=== PATIENT | male | born 1945 | race Caucasian/White ===

== ENCOUNTER → 2019-01-24 16:37 | Outpatient (CLI) | payer MEDICARE, SELFPAY ==
[2015-11-06 16:55] VITALS: BMI 31.8
== END ==
PROVIDERS: Family Provider Family Medicine; PCP Family Medicine; Referring Provider Nurse Practitioner Adult Health; Visit Provider Nurse Practitioner Adult Health
DX: N39.0 Urinary tract infection, site not specified (principal); R31.9 Hematuria, unspecified
CPT/HCPCS: 87077; 87086; 87088; 87186

== ENCOUNTER → 2019-02-02 06:56 | Outpatient (CLI) | payer MEDICARE, SELFPAY ==
--- NOTE | 2019-02-02 07:47 | CT_ITS ---
STUDY: CT ABDOMEN AND PELVIS WITHOUT CONTRAST REASON FOR EXAM: Male, 73 years old. Hematuria. Flank pain. History of bladder cancer. History of prostate removal and colectomy. RADIATION DOSAGE (If Supplied By Facility): CTDIvol = ( 8.77 ) mGy, DLP = ( 458.07 ) mGycm TECHNIQUE: Transaxial images were obtained from the dome of the diaphragm to the symphysis pubis without oral contrast, and without intravenous contrast. Sagittal and coronal images were reconstructed. Individualized dose optimization techniques were used for this CT. COMPARISON: November 04, 2015. FINDINGS: The visualized lung bases are unremarkable. The visualized portions of the heart are within normal limits. Normal liver. There is questionable sludge or small stones in the gallbladder. Liver appears unremarkable. Normal spleen. Normal pancreas. Normal bilateral adrenal glands. There is prominent right hydronephrosis and hydroureter. There is a 7 mm stone in the proximal right ureter. Urinary diversion is identified. Bladder has been removed. There is prominent left hydronephrosis and hydroureter with urinary diversion. Normal visualized stomach. A right ileostomy is noted. There is no evidence for bowel obstruction. There is descending colon and transverse colon and sigmoid colon diverticulosis without evidence for acute diverticulitis. The appendix is visualized and appears normal. Normal abdominal aorta. Normal inferior vena cava. There are scattered mildly prominent but subcentimeter retroperitoneal lymph nodes identified. The largest retroperitoneal lymph node is noted in the right para-aortic region measuring 1.7 cm. Urinary bladder has been removed. Normal abdominal wall. There is mild compression deformity of the L3 vertebral body. CT/Abdomen/Pelvis without Cont IMPRESSION: Bilateral hydronephrosis and hydroureter with urinary diversion. Proximal right ureteric stone. Mildly prominent right para-aortic lymph node. Clinical correlation and follow-up recommended. Given the patient's history, a PET CT can be obtained for further evaluation. Right-sided ileostomy visualized. L3 compression deformity age indeterminate. If warranted MRI can be obtained for further evaluation. Diverticulosis. Small sludge or stones in the gallbladder. Electronically Signed: Adan Duckworth, at 8:17 EDT Tel , Service support ,
== END ==
PROVIDERS: Family Provider Family Medicine; PCP Family Medicine; Referring Provider Nurse Practitioner Adult Health; Visit Provider Nurse Practitioner Adult Health
DX: R31.9 Hematuria, unspecified (principal)
CPT/HCPCS: 74176

== ENCOUNTER → 2019-02-04 13:35 | Outpatient (CLI) | payer MEDICARE, SELFPAY ==
--- NOTE | 2019-02-04 14:48 | RAD_ITS ---
STUDY: X-RAY - ABDOMEN/PELVIS REASON FOR EXAM: Male, 73 years old. Back pain radiating to the right, renal stone. Bladder and prostate cancer, 3 hernia repairs. TECHNIQUE: Single AP view of the abdomen / pelvis. COMPARISON: CT abdomen and pelvis 02/02/2019 FINDINGS: Normal visualized lung bases. There is an unremarkable bowel gas pattern. There is no demonstrated free abdominal air. The 2 proximal obstructing ureteral calculi on previous examination are not visualized. There is a right timolol ostomy, multiple surgical clips along the abdominal wall. Normal soft tissue structures. There are diffuse degenerative changes of the visualized lumbar spine. There is osteopenia and loss of vertebral body height at L3 as seen on CT. RAD/Abdomen Single View IMPRESSION: Proximal right ureteral calculi seen on previous CT are not visualized. Postsurgical changes with a right-sided ostomy. There is no obstruction or perforation. Electronically Signed: Ghislaine Botello MD at 5:25 EDT , Service support ,
[2019-02-04 15:05] LABS: Creatinine, Serum 2.24 mg/dL (0.70-1.30); EST Glomerular Filtration Rate 31 mL/min (>60); Est Glom Filt Rate - Afr Amer 37 mL/min (>60)
== END ==
PROVIDERS: Family Provider Family Medicine; PCP Family Medicine; Referring Provider Nurse Practitioner Adult Health; Visit Provider Nurse Practitioner Adult Health
DX: N13.2 Hydronephrosis with renal and ureteral calculous obstruction (principal)
CPT/HCPCS: 36415; 74018; 82565

== ENCOUNTER → 2019-02-08 11:07 | Outpatient (CLI) | payer MEDICARE, SELFPAY ==
[2019-02-08 11:22] LABS: Hemoglobin 11.7 g/dl (13.0-16.5); Mean Corp Hgb Conc 31.6 g/gl (32-36); Mean Corpuscular Hgb 28.1 pg (27.0-32.0); Mean Corpuscular Volume 88.7 fL (80-94); Mean Platelet Vol. 8.4 fl (6.2-12.0); Platelet Count 213 K/mm3 (150-450); RBC Distribution Width CV 16.8 % (11.6-14.6); Red Blood Count 4.17 M/mm3 (4.6-6.2); Scan Indicated on CBC? Y/N NO; White Blood Count 6.3 K/mm3 (4.4-11.0)
[2019-02-08 11:28] LABS: International Normalized Ratio 1.1; Prothrombin Time (Protime)PT. 14.3 SECONDS (11.7-14.9)
[2019-02-08 11:40] LABS: Anion Gap 2 (5-15); BUN 39 mg/dL (7-18); BUN/Creat Ratio 16.8 RATIO (10-20); Calcium,Total 8.6 mg/dL (8.5-10.1); Chloride 113 mmol/L (98-107); Creatinine, Serum 2.32 mg/dL (0.70-1.30); EST Glomerular Filtration Rate 30 mL/min (>60); Est Glom Filt Rate - Afr Amer 36 mL/min (>60); Glucose 130 mg/dL (74-106); Potassium 4.3 mmol/L (3.5-5.1); Sodium Level 140 mmol/L (136-145)
== END ==
PROVIDERS: Family Provider Family Medicine; PCP Family Medicine; Referring Provider Nurse Practitioner Adult Health; Visit Provider Nurse Practitioner Adult Health
DX: Z01.812 Encounter for preprocedural laboratory examination (principal); N13.30 Unspecified hydronephrosis; I25.9 Chronic ischemic heart disease, unspecified
CPT/HCPCS: 36415; 80048; 85027; 85610

== ENCOUNTER 2019-02-20 13:51 | Day surgery (SDC) | payer MEDICARE, SELFPAY ==
[2019-02-20 14:06] VITALS: BP 101/60; PULSE 79; RESP 16; TEMP 36.6; O2SAT 100; BMI 26.2
[2019-02-20] MEDS: Cefazolin 2 GM in 0.9% Normal Saline 100 ML IV (15:26)
--- NOTE | 2019-02-20 16:45 | DCINST_ITS ---
Discharge Diet: Light diet - advance as tolerated Discharge Activity: Return to Normal Activity Call your doctor if your incision/area has: Sudden Increased Bleeding, Increased Pain/ Swelling Call your doctor if you observe: Fever of 101 or Higher Suture Line Care: Avoid Pulling/Pushing, Avoid Pinching/Bending Allergies/Adverse Reactions: Allergies No Known Allergies Allergy (Verified 02/19/19 11:26) Medications to take at Discharge Metoprolol Tartrate [Lopressor] 12.5 mg PO QHS 06/27/13 Pravastatin Sodium [Pravachol] 40 mg PO QHS 06/27/13 Travoprost 0.004% [Travatan 0.004% Eye Drop] 1 drop EACH EYE DAILY 06/27/13 Timolol 0.5% [Timoptic] 1 drop LEFT EYE DAILY 10/15/14 Aspirin [Aspir 81] 81 mg PO DAILY 02/19/19 Cephalexin [Keflex] 500 mg PO 4X/DAY 02/19/19 Primary Care Physician: Clarke Mcgregor MD [Primary Care Provider] - Test Results: Test results from this visit will be discussed in further detail at your follow- up appointment, if applicable. Please Follow Up With: Nazario Hunt MD When: please call to make an appointment.
--- NOTE | 2019-02-20 16:49 | OP.PCM_ITS ---
Report of Operation Date of Procedure: 02/20/19 Pre-Operative Diagnosis: History of ileal conduit formation he has obstruction of the right kidney from a proximal right ureteral calculus status post nephrostomy tube placement, plan to proceed with antegrade ureteroscopy and stent Post-Operative Diagnosis: The same, stone in the proximal right ureter is chronically embedded completely obstructed proximal ureter is a poorly functioning destroyed ureter from the stone, stone completely embedded in the proximal ureter right kidney chronically obstructed poorly poorly functioning. Surgery/Procedure Performed:: Ureteroscopy through an established nephrostomy track, antegrade ureteroscopy laser lithotripsy of stone fragments, nephrostogram and retrograde pyelogram interpretation of fluoroscopic images, placement of the stent at antegrade fashion. Description of Surgical Findings:: 73-year-old male has a history of bladder cancer had a cystectomy and ileal conduit long time ago comes into the office and had a CAT scan done that demonstrated bilateral hydronephrosis on the left side he had hydronephrosis down to what appears to be a anastomosis and possible stones within the site of the anastomosis in the left side he had a left nephrostomy tube placed which has been draining lots of urine, on the right side he has hydronephrosis and hydroureter down to a proximal stone in the proximal right ureter with right hydronephrosis, nephrostomy tube was put on the right side and very little urine was coming out of the nephrostomy tube in the right side. Today we can proceed with antegrade ureteroscopy to evaluate the stone and treat this and possibly place a stent antegrade fashion on the right side. We plan to evaluate the left side delayed setting and only do one side at a time. 73-year-old male taken back to the operating room at the smooth induction of anesthesia in a supine position he was then prone facedown on the table with pressure padded always points the nephrostomy tube coming from the right kidney was evaluated and I took off the extension tubing, we did fluoroscopy performed a nephrostogram to evaluate the nephrostomy tube placement, the nephrostomy tube was placed in the lower pole posterior approach. Which did cause an acute angle between the renal pelvis and the ureter, advance a wire through nephrostomy tube initially the wire coiled in the renal pelvis did not go down the ureter and then I cut the string and the nephrostomy tube release the tube and then I was able to manipulate the wire down the ureter but immediately impacted and hit his stone and would not go past it, I then left the wire in place and then over the wire I advanced the Pollack catheter and then I was able to manipulate the wire down the ureter so I got the stone again in the ureter and would not go past the stone. I then performed a retrograde pyelogram again no contrast went past the stone. Appears to be a chronically obstructed system for a long time. The urine from the right kidney was draining very little urine from his right kidney from obstructed systems probably will need to do a renogram to demonstrate poor function of the right kidney. I then went in with a flexible ureteroscope was able to flex in the pelvis go down the ureter into account of the stone and then I started laser lithotripsy once I opened up enough of the gap and then I used a wire and put a wire past the stone into the conduit below and then backed out the ureteroscope left the safety wire in place went back again and then went back down to the stone started lasering the stone but the stone was embedded in the entire ureter is almost overtaken the collazo of the ureter completely destroyed the entire inside lumen of the ureter was able to laser a little channel but could not alleviate the ureter from the stone since is practically embedded in the ureter, completely. After 45 minutes of lasering the stone really not accomplishing the goal of removing the entire stone decided to leave a stent so over the safety wire I advanced a 6 Macedonian by 28 cm stent down it went past the area of the stone into the patient's conduit I pulled with a wire and the stent coiled in the kidney and down below with a conduit and then I cut the string of the stent and took the string off the stent we then put bandages on the site where the nephrostomy tube was coming from we did not place another nephrostomy tube in the kidney will let this heal up in the urinal prior drain down the stent. The long-term he will do need either need chronic stent changes on the right side but I would want to evaluate the kidney function in the right side with a MAG3 renal scan at some point. I let his know the findings and surgery and that the stone was completely and embedded in the wall of the proximal ureter he had a chronically obstructed poorly functioning right kidney. Type of Anesthesia:: General Drains: stent right side. - Admit VTE Documentation VTE Present on Admission: No VTE Mechan Device Prophylaxis: SCD's
[2019-02-20 17:01] VITALS: BP 101/60; BP 150/82; PULSE 65; RESP 16; TEMP 36; O2SAT 98
[2019-02-20 17:15] VITALS: BP 101/60; BP 144/73; PULSE 45; RESP 16; O2SAT 98
[2019-02-20 17:30] VITALS: BP 101/60; BP 148/76; PULSE 45; RESP 16; O2SAT 96
[2019-02-20 17:45] VITALS: BP 101/60; BP 154/68; PULSE 42; RESP 16; TEMP 36; O2SAT 100
[2019-02-20 18:04] VITALS: BP 101/60
== END 2019-02-20 18:26 | disposition home or self-care (01) ==
LOC: SDC 13:51 → AC 13:52
PROVIDERS: Family Provider Family Medicine; PCP Family Medicine; Referring Provider Urology; Visit Provider Urology
PROC: 0TJ98ZZ Inspection of Ureter, Via Natural or Artificial Opening Endoscopic (ICD-10-PCS; CPT 52352; principal; 2019-02-20 15:45)
DX: N13.2 Hydronephrosis with renal and ureteral calculous obstruction (principal); I25.2 Old myocardial infarction; I10 Essential (primary) hypertension; F17.210 Nicotine dependence, cigarettes, uncomplicated; I25.10 Atherosclerotic heart disease of native coronary artery without angina pectoris; G47.30 Sleep apnea, unspecified; K51.90 Ulcerative colitis, unspecified, without complications; Z93.6 Other artificial openings of urinary tract status; Z85.51 Personal history of malignant neoplasm of bladder; Z79.82 Long term (current) use of aspirin; Z79.899 Other long term (current) drug therapy
CPT/HCPCS: 50561; 76000; J7120; C1769; C1894

== ENCOUNTER 2019-03-01 10:42 | Day surgery (SDC) | payer MEDICARE, SELFPAY ==
[2019-03-01 11:04] VITALS: BP 97/62; PULSE 60; RESP 16; TEMP 36.7; O2SAT 97; BMI 25.4
--- NOTE | 2019-03-01 13:10 | DCINST_ITS ---
Discharge Diet: Light diet - advance as tolerated Discharge Activity: Return to Normal Activity Call your doctor if your incision/area has: Sudden Increased Bleeding Call your doctor if you observe: Fever of 101 or Higher Suture Line Care: Avoid Pulling/Pushing, Avoid Pinching/Bending Allergies/Adverse Reactions: Allergies cephalexin [From Keflex] Adverse Reaction (Unverified 03/01/19 13:10) Diarrhea Medications to take at Discharge Metoprolol Tartrate [Lopressor] 12.5 mg PO QHS 06/27/13 Pravastatin Sodium [Pravachol] 40 mg PO QHS 06/27/13 Travoprost 0.004% [Travatan 0.004% Eye Drop] 1 drop EACH EYE QHS 06/27/13 Timolol 0.5% [Timoptic] 1 drop LEFT EYE DAILY 10/15/14 Aspirin [Aspir 81] 81 mg PO DAILY 02/19/19 Acetaminophen [Tylenol Extra Strength] 500 mg PO Q4H PRN PRN #20 tab 02/20/19 Cephalexin [Keflex] 250 mg PO Q12 #14 cap 02/20/19 Primary Care Physician: Clarke Mcgregor MD [Primary Care Provider] - Test Results: Test results from this visit will be discussed in further detail at your follow- up appointment, if applicable. Please Follow Up With: Nazario Hunt MD When: in 2 weeks, please call to make an appointment.
--- NOTE | 2019-03-01 13:11 | PCM.OPRPT ---
Report of Operation Date of Procedure: 03/01/19 Pre-Operative Diagnosis: Left ureteral stricture and left hydronephrosis Post-Operative Diagnosis: The same with stricture at the ureteral, small bowel junction Surgery/Procedure Performed:: Nephrostogram, antegrade pyelogram, left antegrade ureteroscopy through established nephrostomy tube tract, balloon dilation of ureteral stricture at the ureteral and small bowel anastomosis, antegrade left stent placement Description of Surgical Findings:: 73-year-old male who was seen in the office and he developed bilateral hydronephrosis he is status post placement of a right nephrostomy tube and we took care of the right proximal ureteral calculi in place and antegrade right stent but now he presents for management of the left side. He had a left nephrostomy tube placed which was draining a lot of urine. The majority of his healthy kidney is in the left kidney the right kidney was working only fairly poorly. He did have significant hydronephrosis on the left side. He now presents for an antegrade ureteroscopy and evaluation there is a concern for possible stone but he could also have a stricture. 73-year-old male was taken back to the operating room at the smooth induction of general anesthesia timeout was performed, he was then placed facedown prone position with the legs and chest and arms all padded, we then made sure that he was properly intubated position and padded we came in with the fluoroscope identified the right nephrostomy tube into his right kidney. The right nephrostomy tube and right side was then prepped and draped in usual sterile fashion. I first started off by injecting contrast into the nephrostomy tube to perform an nephrostogram and retrograde pyelogram. After this was performed then we cut the string on the nephrostomy tube to allow the coil to relax I then advanced a wire through the nephrostomy tube and coiled the wire in the renal pelvis on the left side. I then backloaded the nephrostomy tube off the wire this was somewhat difficult but was able to do this leave the wire in place and then next to the wire I went in with the ureteroscope in a retrograde fashion through the nephrostomy track into the kidney and identified the kidney and then flexed and went down the ureter past the UPJ area and worked my way down the ureter the night the ureter was nice and wide open then we got into the curve of the ureter as a current gauze underneath the colon and then we saw the ureter go down to just a pinpoint opening at that point and performed another contrast nephrostogram through the ureteroscope and can see barely only a tiny bit of contrast going to the pinpoint opening appeared to be a severe stricture no stone was seen at this point. So therefore I advanced a wire through the ureteroscope past the pinpoint opening it could see a pinpoint opening of the ureteral stricture that was right at the anastomosis between the ureter and the bowel. Putting the wire through the area then the wire coiled in the colon and then over the wire we advanced a 15 Vietnamese 10 cm meter balloon dilator we advanced the balloon dilator past the area of the stricture and then using the lumen dilator kit we dilated the balloon to 15 sierra we did this 2 times and this dilated the stricture nicely. We then went back in with the flexible ureteroscope to inspect see the area going all the way through and then it was able to now get a flexible ureteroscope through the area of the scar tissue right at the anastomosis between the ureter and the colon. Patient had an ileal conduit from a prior cystoprostatectomy. After balloon dilating the stricture I then put the wire through backed off the ureteroscope very carefully over the wire to make sure the wires in place and over the wire advanced a 7 Vietnamese 28 cm stent stent went all the way down to the conduit and I pulled the wire the stent coiled in the conduit and then the distal end of the stent coiled in the renal pelvis I then cut the string of the stent removed to remove this string of the stent without dislodging the stent position and then the stent was in good position in the renal pelvis and in the conduit on the left side. We then placed dressings on the nephrostomy tube site on the left side patient's anesthetic was reversed is taken back to the PACU in good condition will talk to the family regarding the findings at this point with the manage his kidneys with chronic stents. Type of Anesthesia:: General Anesthesiologist: John Dow Specimen's removed: none Drains: 7fr 28cm left stent antegrade Estimated Blood Loss (mL): none Fluids Replaced: none - Complications none - Admit VTE Documentation VTE Present on Admission: No VTE Mechan Device Prophylaxis: SCD's
[2019-03-01 13:18] VITALS: BP 140/78; BP 97/62; PULSE 63; RESP 18; TEMP 36.3; O2SAT 100
[2019-03-01 13:30] VITALS: BP 129/67; BP 97/62; PULSE 56; RESP 16; O2SAT 98
[2019-03-01 13:45] VITALS: BP 134/70; BP 97/62; PULSE 53; RESP 16; TEMP 36.1; O2SAT 99
[2019-03-01 14:40] VITALS: BP 119/64; BP 97/62; PULSE 53; RESP 16; TEMP 36.8; O2SAT 98
== END 2019-03-01 15:33 | disposition home or self-care (01) ==
LOC: SDC 10:42 → AC 10:43
PROVIDERS: Family Provider Family Medicine; PCP Family Medicine; Referring Provider Urology; Visit Provider Urology
PROC: 0TJ98ZZ Inspection of Ureter, Via Natural or Artificial Opening Endoscopic (ICD-10-PCS; CPT 52352; principal; 2019-03-01 12:05)
DX: N13.1 Hydronephrosis with ureteral stricture, not elsewhere classified (principal); I11.9 Hypertensive heart disease without heart failure; I25.9 Chronic ischemic heart disease, unspecified; I25.10 Atherosclerotic heart disease of native coronary artery without angina pectoris; E78.00 Pure hypercholesterolemia, unspecified; F17.200 Nicotine dependence, unspecified, uncomplicated; Z93.6 Other artificial openings of urinary tract status; Z79.82 Long term (current) use of aspirin; Z79.899 Other long term (current) drug therapy; I25.2 Old myocardial infarction; Z95.5 Presence of coronary angioplasty implant and graft; Z95.1 Presence of aortocoronary bypass graft; Z87.440 Personal history of urinary (tract) infections; Z85.51 Personal history of malignant neoplasm of bladder; Z87.11 Personal history of peptic ulcer disease; Z86.2 Personal history of diseases of the blood and blood-forming organs and certain disorders involving the immune mechanism
CPT/HCPCS: 50953; 76000; J7120; C1726; C1769; J2405

== ENCOUNTER → 2019-03-04 11:15 | Outpatient (CLI) | payer MEDICARE, SELFPAY ==
[2019-03-01 11:04] VITALS: BMI 25.4
== END ==
PROVIDERS: Referring Provider Urology; Visit Provider Urology
DX: R19.7 Diarrhea, unspecified (principal)
CPT/HCPCS: 87493

== ENCOUNTER → 2019-05-06 17:16 | Outpatient (CLI) | payer MEDICARE, SELFPAY | PROVIDERS: Referring Provider Urology; Visit Provider Urology | DX: N39.0 Urinary tract infection, site not specified (principal) | CPT/HCPCS: 87077; 87086; 87088; 87186 ==

== ENCOUNTER 2019-05-15 09:56 | Day surgery (SDC) | payer MEDICARE, SELFPAY ==
[2019-05-15] VITALS (7 sets, daily range): BP systolic 121–133; BP diastolic 72–81; PULSE 55–63; RESP 16–18; TEMP 36.3–36.8; O2SAT 95–99; BMI 26.4
[2019-05-15] MEDS: Lactated Ringers 1,000 ML 100 ML IV (10:33)
[2019-05-15] MEDS: Cefazolin 2 GM in 0.9% Normal Saline 100 ML IV (12:00)
--- NOTE | 2019-05-15 12:07 | DCINST_ITS ---
Discharge Diet: Light diet - advance as tolerated Discharge Activity: Return to Normal Activity Allergies/Adverse Reactions: Allergies cephalexin [From Keflex] Adverse Reaction (Unverified 05/15/19 10:15) Diarrhea Medications to take at Discharge Metoprolol Tartrate [Lopressor] 12.5 mg PO QHS 06/27/13 Pravastatin Sodium [Pravachol] 40 mg PO QHS 06/27/13 Travoprost 0.004% [Travatan 0.004% Eye Drop] 1 drop EACH EYE QHS 06/27/13 Timolol 0.5% [Timoptic] 1 drop LEFT EYE DAILY 10/15/14 Aspirin [Aspir 81] 81 mg PO DAILY 02/19/19 Acetaminophen [Tylenol Extra Strength] 500 mg PO Q4H PRN PRN #20 tab 02/20/19 Polyethylene Glycol 3350 [Miralax] 17 gm PO DAILY PRN 05/09/19 Cephalexin [Keflex] 500 mg PO Q8 #12 cap 05/15/19 The following prescriptions were given: Cephalexin [Keflex] 500 mg PO Q8 #12 cap Prescription Printed Primary Care Physician: Lana Solomon DO [Primary Care Provider] - Test Results: Test results from this visit will be discussed in further detail at your follow- up appointment, if applicable. Please Follow Up With: Nazario Hunt MD When: in 2 weeks, please call to make an appointment.
--- NOTE | 2019-05-15 12:32 | OP.PCM_ITS ---
Report of Operation Date of Procedure: 05/15/19 Pre-Operative Diagnosis: Bilateral ureteral obstruction on the right side from a chronic stone embedded in the kidney and the left side from a stricture at the ureteral conduit anastomosis. Post-Operative Diagnosis: The same Surgery/Procedure Performed:: Cystoscopy via the ileal conduit, removal of the right stent and antegrade change of the right stent, interpretation fluoroscopic images, removal of the left stent and interpretation of fluoroscopic images placement of a new left stent Description of Surgical Findings:: Indication is a 73-year-old male who has an ileal conduit has a history of bladder cancer in the past is found to have bilateral hydronephrosis from 2 separate causes one was a stone impacted in the proximal ureter on the right side causing obstruction and a poorly functioning right kidney and the second 1 was a ureteral colonic anastomosis stricture that has been dilated. He now presents for bilateral stent changes were to do this through the ileal conduit Patient was taken back to the operating room at the smooth induction of anesthesia he was placed supine on the table went into the conduit with a flexible cystoscope graft the first existing stent pulled out the conduit opening I then advanced a wire through the stent and the wire went up the right side coiled in the kidney used fluoroscopy to do the procedure and then backloaded the old stent off the wire then through the wire advanced a new stent it was a 7 Mauritanian by 28 cm stent once a stent was up into the kidney and in the conduit I then pulled the wire and the stent coiled in the kidney we look back in with a flexible cystoscope in the conduit and can see the stent and could see the conduit and the stent coiled within the conduit. I then grabbed the left stent pulled out to the conduit opening advance a wire through the left side to went through the stent all the way up on the left side coil in the kidney and this time advanced a wire up to the left side and then over the wire we advanced a new 7 Mauritanian by 28 cm stent stent went through the wire down the conduit and then back up on the left side once up in the left kidney I pulled the wire in the stent coiled in the kidney and the conduit in good position I looked back in the conduit and could see the stent coiled in the conduit there is 2 stents in the conduit and then the both stents: The kidney. After successful navigation of both the wires and change in both stents in the left and right side this was done via the conduit patient anesthetic was reversed new bag was placed in the conduit and is taken back to PACU good good condition plan to change his stents in 6 months. Type of Anesthesia:: General Drains: stent - Admit VTE Documentation VTE Present on Admission: No VTE Mechan Device Prophylaxis: SCD's
== END 2019-05-15 13:45 | disposition home or self-care (01) ==
LOC: SDC 09:57 → AC 10:00
PROVIDERS: Referring Provider Urology; Visit Provider Urology
PROC: (CPT 50953; principal; 2019-05-15 11:20)
DX: N13.2 Hydronephrosis with renal and ureteral calculous obstruction (principal); N13.1 Hydronephrosis with ureteral stricture, not elsewhere classified; I10 Essential (primary) hypertension; N40.1 Benign prostatic hyperplasia with lower urinary tract symptoms; R33.8 Other retention of urine; R39.12 Poor urinary stream; I25.9 Chronic ischemic heart disease, unspecified; I25.10 Atherosclerotic heart disease of native coronary artery without angina pectoris; E78.00 Pure hypercholesterolemia, unspecified; F17.210 Nicotine dependence, cigarettes, uncomplicated; Z79.82 Long term (current) use of aspirin; Z79.899 Other long term (current) drug therapy; I25.2 Old myocardial infarction; Z85.51 Personal history of malignant neoplasm of bladder; Z87.440 Personal history of urinary (tract) infections; Z87.11 Personal history of peptic ulcer disease; Z95.1 Presence of aortocoronary bypass graft; Z95.5 Presence of coronary angioplasty implant and graft
CPT/HCPCS: 00820; 50953; 76000; J7120; C1769; J2405

== ENCOUNTER → 2019-08-12 11:44 | Outpatient (CLI) | payer MEDICARE, SELFPAY ==
[2019-05-15 10:17] VITALS: BMI 26.4
[2019-08-12 12:54] LABS: ALB/GLOB Ratio 0.8 RATIO (0.9-2.4); AST(SGOT) 13 U/L (15-37); Alanine Aminotransfer ALT/SGPT 18 U/L (16-61); Albumin, Serum 3.4 g/dL (3.2-5.0); Alkaline Phosphatase 106 U/L (45-117); Anion Gap 3 (5-15); BUN 32 mg/dL (7-18); BUN/Creat Ratio 18.4 RATIO (10-20); Calcium,Total 8.4 mg/dL (8.5-10.1); Chloride 111 mmol/L (98-107); Creatinine, Serum 1.74 mg/dL (0.70-1.30); EST Glomerular Filtration Rate 41 mL/min (>60); Est Glom Filt Rate - Afr Amer 50 mL/min (>60); Globulin 4.3 g/dL (2.2-4.2); Glucose 85 mg/dL (74-106); Potassium 4.1 mmol/L (3.5-5.1); Protein, Total 7.7 g/dL (6.4-8.2); Sodium Level 142 mmol/L (136-145)
== END ==
PROVIDERS: Referring Provider Urology; Visit Provider Urology
DX: N13.1 Hydronephrosis with ureteral stricture, not elsewhere classified (principal)
CPT/HCPCS: 36415; 80053

== ENCOUNTER 2019-09-13 09:52 | Day surgery (SDC) | payer MEDICARE, SELFPAY ==
--- NOTE | 2019-09-03 01:15 | HP_ITS ---
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: No Is patient in pain?: No Allergies cephalexin [From Keflex] Adverse Reaction (Verified 09/02/19 13:28) Diarrhea Medications Metoprolol Tartrate [Lopressor] 12.5 mg PO QHS 06/27/13 [History Confirmed 09/02/19] Timolol 0.5% [Timoptic] 1 drp LEFT EYE DAILY 10/15/14 [History Confirmed 09/02/19] Aspirin [Aspir 81] 81 mg PO DAILY 02/19/19 [History Confirmed 09/02/19] Acetaminophen [Tylenol Extra Strength] 500 mg PO Q4H PRN PRN #20 tab 02/20/19 [Rx Confirmed 09/02/19] Polyethylene Glycol 3350 [Miralax] 17 gm PO DAILY PRN 05/09/19 [History Confirmed 09/02/19] latanoprost 0.005 % eye drops OPHTHALMIC 09/02/19 [History Confirmed 09/02/19] simvastatin 40 mg tablet mg PO 09/02/19 [History Confirmed 09/02/19] PFSH Medical History (Updated 09/02/19 @ 13:27 by Maria Eugenia Canela) Cardiac murmur (Acute) Cataract (Acute) Constipation (Acute) History of bladder carcinoma (Acute) History of hyperlipidemia (Acute) Myocardial infarction (Acute) Sleep apnea (Acute) 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 (Acute) HTN (hypertension) (Chronic) Surgical History (Updated 09/02/19 @ 13:27 by Maria Eugenia Canela) History of colonoscopy (Acute) History of coronary artery bypass graft x 2 (Acute) History of cystoscopy (Acute) History of heart artery stent (Acute) History of transurethral resection of prostate (Acute) Family History (Updated 09/02/19 @ 13:28 by Maria Eugenia Canela) Father Heart disease Mother Hypertension Social History (Updated 09/03/19 @ 13:15 by Jimbo Smith MD) Smoking Status: Current some day smoker HPI HPI HPI: RAMY BALL, is a 74 M who presents to the office today for HPI HPI Surgical H&P: Yes HPI: RAMY BALL, is a 74 M who presents to the office today for colonoscopy. The patient reports that he has last colonoscopy in thousand 14 and polyps were identified. He was recommended to have a repeat colonoscopy in 5 years. He is currently constipated and taking MiraLAX daily. He also reports that he has had hernia repair in the past and he has a hernia around his urostomy. He is not reported any blood in his stool or issues besides the constipation. ROS General General: No weight change or fatigue Cardio Cardiovascular: Yes murmur, high blood pressure, heart attack and heart stent; no pacemaker, heart disease, atrial fibrillation, palpitations, shortness of breat with exertion or chest pain Psych Psychiatric: No depression or anxiety Resp Respiratory: No shortness of breath, No sleep apnea, No cough, No COPD, No asthma, No emphysema, No wheezing Gastro Gastrointestinal: No abdominal pain, No nausea or vomiting, No diarrhea, No constipation, No blood in stool, No acid reflux, No hemorrhoids, No ulcers, No gallbladder problem, No black,tarry stools Finesse Hematologic: No blood thinners Exam Const General: cooperative Orientation: alert, oriented x3 Resp Effort & Inspection: normal respiratory effort Auscultation: clear to auscultation bilaterally Cardio Rate: regular rate Rhythm: regular rhythm Heart Sounds: murmur GI Inspection: non-distended Palpation: soft, hernia (parastomal), nontender Assessment & Plan Problems 1. History of colon polyps Z86.010 Plan Patient had colonoscopy 5 years ago and was found to have polyps. He was recommended for repeat in 5 years. The patient reports that he has a bulging and he does indeed have a parastomal hernia that is identified on the CT scan. I notify him that I would not be able to repair the parastomal hernia but he is not having any issues from this. I do recommend repeat colonoscopy and I will perform this for him. I have asked him to stop his aspirin for 5 days. I explained endoscopy in detail to the patient. I explained the risks including but not limited to stroke or heart attack with anesthesia, perforation of the GI tract, bleeding, infection. I explained that any of these could necessitate further emergency surgery. The patient understands and all questions were answered sufficiently. The patient wishes to proceed with procedure. Jimbo Smith MD Pager: [facility] [address] [place] [address], [address] [place] [address] Office: Orders Orders: Colonoscopy Today Z86.010 Coding Level of Care Code Off vis,new,level 3 Diagnoses History of colon polyps Z86.010 09/03/19 1315 <Electronically signed by Jimbo quigley MD> Date _ Jimbo Smith MD I have re-examined the patient. There are no clinical changes since date of exam.
[2019-09-03 13:15] VITALS: BMI 26.4
[2019-09-13] VITALS (7 sets, daily range): BP systolic 87–125; BP diastolic 61–75; PULSE 53–77; RESP 16–18; TEMP 36.2–36.5; O2SAT 97–100; BMI 26.7
--- NOTE | 2019-09-13 | COLBX_PTH ---
PATIENT: RAMY BALL LOC: EN U#:[id number] AGE/SX: 74/M ROOM: RE09/13/[address]: Dr. Jimbo Smith MD : 1945 BED: DIS: 09/13/2019 SPEC #: [id number] RECD: 09/13/19 13:31 STATUS: [place] #: [id number] JANEL: 09/13/19 00:[address]: Jimbo Smith DEPT: SURGICAL PATHOLOGY RECD BY: Heriberto Baires ENTERED: 09/13/19 13:31 SP TYPE: COLON BX OTHR DR: Dr. Lana Solomon, Tissues: Cecum, NOS Procedures: Surgery Specimen Level IV HEADER OPERATION: Colonoscopy (MAC) PRE-OP DIAGNOSIS: History of polyps TISSUE SUBMITTED: Cecum polyp MICROSCOPIC DIAGNOSIS Cecum polyp, biopsy: Fragments of tubular adenoma. SJ:kaylah 09/16/19 MICROSCOPIC DESCRIPTION Slides are reviewed. GROSS DESCRIPTION Received in fixative is one container labeled with the patient's name and designated cecal polyp. The specimen consists of multiple irregular fragments of light escobar soft tissue that in aggregate measure 0.5 x 0.5 x 0.1 cm. The specimen is totally submitted in one cassette. / SJ:kalyah 09/13/19 TC:1 CPT: 28185
[2019-09-13] MEDS: Lactated Ringers 1,000 ML 100 ML IV (10:19)
--- NOTE | 2019-09-13 11:29 | OP.COLON_ITS ---
Patient Name: Leonel Wallace Procedure Date: 09/13/2019 10:56 AM Date of : 1945 Age: 74 Procedure: Colonoscopy Indications: High risk colon cancer surveillance: Personal history of non-advanced adenoma Providers: Jimbo Smith MD Medicines: Monitored Anesthesia Care Patient Profile: This is a 74 year old male. Refer to note in patient chart for documentation of history and physical. Last Colonoscopy: 5 years ago. Complications: No immediate complications. Estimated blood loss: Minimal. Procedure: Pre-Anesthesia Assessment: - Prior to the procedure, a History and Physical was performed, and patient medications and allergies were reviewed. The patient's tolerance of previous anesthesia was also reviewed. The risks and benefits of the procedure and the sedation options and risks were discussed with the patient. All questions were answered, and informed consent was obtained. Prior Anticoagulants: The patient has taken aspirin, last dose was 5 days prior to procedure. After reviewing the risks and benefits, the patient was deemed in satisfactory condition to undergo the procedure. After I obtained informed consent, the scope was passed under direct vision. Throughout the procedure, the patient's blood pressure, pulse, and oxygen saturations were monitored continuously. The Colonoscope was introduced through the anus and advanced to the cecum, identified by appendiceal orifice and ileocecal valve. The colonoscopy was performed without difficulty. The patient tolerated the procedure well. The quality of the bowel preparation was good. Scope In: 11:14:23 AM Scope Withdrawal Time 0 hours 6 minutes 7 seconds Scope Out: 11:24:43 AM Total Procedure Duration Time 0 hours 10 minutes 20 seconds Findings: A polyp was found in the cecum. The polyp was removed with a hot snare. Resection and retrieval were complete. The exam was otherwise without abnormality on direct and retroflexion views. Many small-mouthed diverticula were found in the entire colon. Impression: - One polyp in the cecum, removed with a hot snare. Resected and retrieved. - The examination was otherwise normal on direct and retroflexion views. - Diverticulosis in the entire examined colon. Recommendation: - Discharge patient to home. - Resume previous diet. - Continue present medications. - Resume aspirin at prior dose tomorrow. - Await pathology results. - Repeat colonoscopy after studies are complete for surveillance based on pathology results. Procedure Code(s): --- Professional --- 65156, Colonoscopy, flexible; with removal of tumor(s), polyp(s), or other lesion(s) by snare technique Diagnosis Code(s): --- Professional --- Z86.010, Personal history of colonic polyps D12.0, Benign neoplasm of cecum K57.30, Diverticulosis of large intestine without perforation or abscess without bleeding CPT copyright 2017 [employer]. All rights reserved. The codes documented in this report are preliminary and upon pipeline systems operator review may be revised to meet current compliance requirements. Jimbo Smith MD 09/13/2019 11:29:21 AM This report has been signed electronically. Number of Addenda: 0 Note Initiated On: 09/13/2019 10:56 AM
--- NOTE | 2019-09-13 11:30 | OP.CCLET_ITS ---
09/13/2019 Lana Solomon Re : Colonoscopy procedure for Leonel Wallace Jas Solomon This procedure was performed on Friday, September 13, 2019. My impressions and recommendations are as follows: Impressions : - One polyp in the cecum, removed with a hot snare. Resected and retrieved. - The examination was otherwise normal on direct and retroflexion views. - Diverticulosis in the entire examined colon. Recommendations : - Discharge patient to home. - Resume previous diet. - Continue present medications. - Resume aspirin at prior dose tomorrow. - Await pathology results. - Repeat colonoscopy after studies are complete for surveillance based on pathology results. My findings are described in the full procedure note, which is enclosed. If I can be of further assistance, please feel free to contact me at Doctor phone number(s): , Work: . Sincerely, Jimbo Smith MD 09/13/2019 11:29:21 AM This report has been signed electronically.
== END 2019-09-13 12:04 | disposition home or self-care (01) ==
LOC: EN 09:54 → AC 09:56
PROVIDERS: Visit Provider Surgery
PROC: 0DJD8ZZ Inspection of Lower Intestinal Tract, Via Natural or Artificial Opening Endoscopic (ICD-10-PCS; CPT 45378; principal; 2019-09-13 11:15)
DX: Z12.11 Encounter for screening for malignant neoplasm of colon (principal); D12.0 Benign neoplasm of cecum; K57.30 Diverticulosis of large intestine without perforation or abscess without bleeding; K43.5 Parastomal hernia without obstruction or gangrene; K59.00 Constipation, unspecified; I10 Essential (primary) hypertension; E78.00 Pure hypercholesterolemia, unspecified; G47.30 Sleep apnea, unspecified; F17.200 Nicotine dependence, unspecified, uncomplicated; Z79.82 Long term (current) use of aspirin; Z79.899 Other long term (current) drug therapy; I25.2 Old myocardial infarction; Z86.010 Personal history of colon polyps; Z85.51 Personal history of malignant neoplasm of bladder; Z85.46 Personal history of malignant neoplasm of prostate; Z87.11 Personal history of peptic ulcer disease; Z86.2 Personal history of diseases of the blood and blood-forming organs and certain disorders involving the immune mechanism; Z88.1 Allergy status to other antibiotic agents; Z95.5 Presence of coronary angioplasty implant and graft; Z95.1 Presence of aortocoronary bypass graft
CPT/HCPCS: 45385; 88305; J7120

== ENCOUNTER 2020-01-01 06:27 | Day surgery (SDC) | payer MEDICARE, SELFPAY ==
[2019-09-13 10:11] VITALS: BMI 26.7
[2020-01-01] VITALS (7 sets, daily range): BP systolic 111–146; BP diastolic 64–84; PULSE 44–58; RESP 16; TEMP 36.2–36.5; O2SAT 98–100; BMI 25.7
[2020-01-01] MEDS: Lactated Ringers 1,000 ML 100 ML IV (07:18)
[2020-01-01] MEDS: Cefazolin 2 GM in 0.9% Normal Saline 100 ML IV (08:32)
--- NOTE | 2020-01-01 08:32 | HP.PCM_ITS ---
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 At this point were managing his kidneys with bilateral stents through the ileal conduit been 6 months since his last stent change to regular changes stents today hopefully will go smoothly and hopefully will not need a nephrostomy tube. Also has had a recent Klebsiella infection has been taken antibiotics for this will give us more antibiotics after the procedure today Past Medical History Medical History: Medical History (Last Reviewed 01/01/20 @ 08:[address] 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 HTN (hypertension) I10 Allergies cephalexin [From Keflex] Adverse Reaction (Verified 12/31/19 09:44) Diarrhea Home Medications: Ambulatory Orders Medication Instructions Recorded Metoprolol Tartrate [Lopressor] 12.5 mg PO QHS 06/27/13 Timolol 0.5% [Timoptic] 1 drp LEFT EYE DAILY 10/15/14 Aspirin [Aspir 81] 81 mg PO DAILY 02/19/19 Acetaminophen [Tylenol Extra 500 mg PO Q4H PRN PRN #20 tab 02/20/19 Strength] Polyethylene Glycol 3350 [Miralax] 17 gm PO DAILY PRN 05/09/19 latanoprost 0.005 % eye drops 1 drop OPHTHALMIC QHS 09/02/19 simvastatin 40 mg tablet 40 mg PO QHS 09/02/19 Cholecalciferol (Vitamin D3) 2,000 unit PO DAILY 12/31/19 [Vitamin D3] Surgical History: Surgical History (Last Updated 09/02/19 @ 13:27 by Maria Eugenia Canela) History of colonoscopy Z98.890 History of coronary artery bypass graft x 2 Z95.1 History of cystoscopy Z98.890 History of heart artery stent Z95.5 History of transurethral resection of prostate Z98.890, Z90.79 Surgical History: no surgical history Smoking Status: Current every day smoker Review of Systems Constitutional: Denies: Chills, Fever, Weight Change HEENT: Denies: Head Aches, Sinus Congestion, Sinus Drainage Cardiovascular: Denies: Chest Pain, Palpitations Respiratory: Denies: Cough, Shortness of breath at rest, Sputum production Gastrointestinal: Denies: Abdominal Pain, Nausea, Vomiting Genitourinary: Denies: Dysuria Musculoskeletal: Denies: Joint Pain, Joint Tenderness Skin: Denies: Rash, Wounds Neurological: Denies: Numbness, Tingling, Focal weakness Psychiatric: Denies: Anxiety, Depression, Homicidal Ideations, Suicidal Ideations Hematologic/ Lymphatic: Denies: Easy Bruising, Easy Bleeding VTE Information - Inpt Only VTE Present on Admission: No VTE Mechan Device Prophylaxis: SCD's Patient Problems: Active and Suspected Problems (Last Updated 09/02/19 @ 13:27 by Maria Eugenia Canela) Complication of Ileal conduit (Acute) - Physical Exam Vitals/I&O's: Vital Signs Temp Pulse Resp BP Pulse Ox 97.7 F L 58 L 16 122/84 H 100 01/01/20 06:50 01/01/20 06:50 01/01/20 06:50 01/01/20 06:50 01/01/20 06:50 Oxygen Delivery Method Room Air Weight: 72.3 kg Body Mass Index (BMI) 25.7 General: Alert, Oriented x3, Cooperative HEENT: Atraumatic, PERRLA, EOMI, Normocephalic Neck: Supple, No JVD, Negative Carotid Bruits Lungs: Clear to auscultation, Normal air movement Cardiovascular: Regular rate, No murmurs Abdomen: Bowel Sounds Present, Soft, Non Tender Extremities: No edema, Capillary Refill Less than 3 Seconds Skin: No rashes, No breakdown Musculoskeletal: No Tenderness to Palpation of Joints or Extremities Neurological: Cranial nerves II-XII grossly intact Psych/Mental Status: Normal Affect, Appropriate Microbiology Past 72 Hours 12/31/19 11:25 Mucosa - Nasopharyngeal Coronavirus COVID-19 PCR - Final Current Medications Cefazolin Sodium 2 gm/ Sodium (Chloride) 110 mls @ 150 mls/hr IV PREOP ONE Stop: 01/01/20 09:13 Lactated Ringer's () 1,000 mls @ 100 mls/hr IV .Q10H WENDI Last Admin: 01/01/20 07:18 Dose: 100 mls/hr Documented by: Assessment/Plan All Active Problems (Last Updated 09/02/19 @ 13:27 by Maria Eugenia Canela) Complication of Ileal conduit (Acute) 74-year-old male with a history of bladder cancer with ileal conduit he is got a left anastomotic stricture and a right stricture from the kidney stone in the proximal ureter he is managed with bilateral stents today working to do a stent change the ileal ileal conduit. Spent 6 months since his last stent change. Essential Procedure Criteria Procedure Essential: Yes Criteria Note: On 11/05/2019 the [place] Department of [facility] ([facility]) Public Order signed by [facility] Director Leesa Mercedes M.D., regarding the Management of Non- Essential Surgeries and Procedures for the purpose of preserving Personal Protective Equipment (PPE) and critical hospital capacity and resources within [place] went into effect as of 11/06/2019 at 5:00PM. According to the [facility] Public Order: This action will remain in full force and effect until the State of Emergency declared by the Governor no longer exists or the Director of the [facility] rescinds or modifies this Order.. This [facility] order stated all non-essential or elective surgeries and procedures that utilize PPE should be delayed unless there is undue risk to the current or future health of a patient. After reviewing the aforementioned [facility] Public Order and the patients clinical case, I have determined that the scheduled procedure meets the criteria to go forward. Risk to Patient if Procedure Delayed: Presence of severe symptoms causing an inability to perform ADL's
--- NOTE | 2020-01-01 08:37 | PCM.DC.URO ---
Discharge Diet: Light diet - advance as tolerated Discharge Activity: Return to Normal Activity Suture Line Care: Avoid Pulling/Pushing, Avoid Pinching/Bending Allergies/Adverse Reactions: Allergies cephalexin [From Keflex] Adverse Reaction (Verified 12/31/19 09:44) Diarrhea Medications to take at Discharge Metoprolol Tartrate [Lopressor] 12.5 mg PO QHS 06/27/13 Timolol 0.5% [Timoptic] 1 drp LEFT EYE DAILY 10/15/14 Aspirin [Aspir 81] 81 mg PO DAILY 02/19/19 Acetaminophen [Tylenol Extra Strength] 500 mg PO Q4H PRN PRN #20 tab 02/20/19 Polyethylene Glycol 3350 [Miralax] 17 gm PO DAILY PRN 05/09/19 latanoprost 0.005 % eye drops 1 drop OPHTHALMIC QHS 09/02/19 simvastatin 40 mg tablet 40 mg PO QHS 09/02/19 Cholecalciferol (Vitamin D3) [Vitamin D3] 2,000 unit PO DAILY 12/31/19 Ciprofloxacin [Cipro] 250 mg PO BID #14 tab 01/01/20 The following prescriptions were given: Ciprofloxacin [Cipro] 250 mg PO BID #14 tab Transmission Status: Pending to [facility]/pharmacy #[id number] Primary Care Physician: Lana Solomon DO [Primary Care Provider] - Test Results: Test results from this visit will be discussed in further detail at your follow-up appointment, if applicable. Please Follow Up With: Nazario Hunt MD When: please call to make an appointment.
--- NOTE | 2020-01-01 09:05 | PCM.OPRPT ---
Problem List (1) Complication of Ileal conduit Status: Acute Report of Operation Date of Procedure: 01/01/20 Pre-Operative Diagnosis: Ileal conduit with left ureteral stricture anastomotic, right proximal ureter stricture from a kidney stone. Post-Operative Diagnosis: The same Surgery/Procedure Performed:: Cystoscopy via the ileal conduit, removal of the left stent, left retrograde pyelogram via the ileal conduit, left stent change via the ileal conduit. Cystoscopy via the ileal conduit removal of the right stent, right retrograde pyelogram via the ileal conduit and right stent change. Description of Surgical Findings:: 74-year-old male who has a history of bladder cancer is managed with a cystectomy and ileal conduit formation unfortunately developed an anastomotic stricture between his left ureter and the ileal conduit he is not a surgical candidate given all his prior surgical history and is elected undergo stent changes. Today working a stent change on the left side and also on the right side the right side he developed a stone in the proximal ureter the cause chronic obstruction. His creatinine is about 1.7 is been managed with bilateral stents long-term he is aware that this could fail and he can end up having dialysis but for now organ to continue managing his kidneys with bilateral stents also treat infections as necessary. Prior to the surgery he did have a Klebsiella infection and has been on antibiotics for this week and continue with Cipro afterwards to treat the infection for 7 more days. Patient was taken back to the operating room after smooth induction of anesthesia he was placed supine on the table he underwent a MAC local the appliance and the stoma was removed we use just soapy water to just gently cleans the ileal conduit no Betadine was used. The one stent was emanating from the ileal conduit this was grabbed with a grasper and then through the stent advanced a wire as a follow the wire under fluoroscopy I identified that this stent was going up the right side I then advanced a wire all the way up to the right side to the kidney ~coiled in the kidney and then over the wire advanced a Pollick catheter 5 Nicaraguan open-ended Pollack catheter and once again to the kidney injected contrast for retrograde pyelogram. I then put a PTFE wire through the Pollick catheter this secured access to the right kidney through the ileal conduit and then a push the stent over the wire up to the right side under fluoroscopic guidance until the stent was in good position pulled the wire and the stent coiled in the conduit and in the kidney on the right side. I then went into the condyle with a flexible cystoscope and did a inspection through the ileal conduit identified the left stent coming from the left side I grabbed a grasper and the stent pulled out to the conduit and and then I cut off the end of the stent because of the encrusted and then through the stent I advanced a wire 0.038 through the stent got all the way through the stent but the distal end was encrusted and could not get through so I then I tried a 0.035 wire and with this is able to get through then I backloaded the wire left the wire in place backloaded out the stent off the wire. We then loaded up a Pollick catheter over the wire performed a retrograde pyelogram gets could see the contrast up in the kidney and then over the wire I advanced a new 6 Nicaraguan by 28 cm stent once a stent was up in the kidney on the left side up with a wire in the stent coiled appropriately in the kidney and within the ileal conduit. A new appliance was placed on the conduit patient acetic was reversed he was taken back to the PACU in good condition and will see him next week for checkup. Type of Anesthesia:: Local MAC Drains: bilateral stents - Admit VTE Documentation VTE Present on Admission: No VTE Mechan Device Prophylaxis: SCD's
== END 2020-01-01 10:04 | disposition home or self-care (01) ==
LOC: SDC 06:31 → AC 06:35
PROVIDERS: Referring Provider Urology; Visit Provider Urology
PROC: (CPT 50688; principal; 2020-01-01 08:15)
DX: N13.1 Hydronephrosis with ureteral stricture, not elsewhere classified (principal); N13.2 Hydronephrosis with renal and ureteral calculous obstruction; N30.01 Acute cystitis with hematuria; I25.9 Chronic ischemic heart disease, unspecified; I25.10 Atherosclerotic heart disease of native coronary artery without angina pectoris; I10 Essential (primary) hypertension; E78.5 Hyperlipidemia, unspecified; N40.1 Benign prostatic hyperplasia with lower urinary tract symptoms; R33.8 Other retention of urine; R39.12 Poor urinary stream; G47.30 Sleep apnea, unspecified; I25.2 Old myocardial infarction; Z79.82 Long term (current) use of aspirin; Z79.899 Other long term (current) drug therapy; Z88.1 Allergy status to other antibiotic agents; Z85.51 Personal history of malignant neoplasm of bladder; Z87.442 Personal history of urinary calculi; Z87.440 Personal history of urinary (tract) infections; Z87.891 Personal history of nicotine dependence; Z95.1 Presence of aortocoronary bypass graft; Z95.5 Presence of coronary angioplasty implant and graft; Z11.59 Encounter for screening for other viral diseases
CPT/HCPCS: 00860; 50688; 76000; 87635; G2023; J7120; C1769; C2617; U0002

== ENCOUNTER → 2020-05-11 | Outpatient (CLI) | payer MEDICARE, SELFPAY ==
[2020-01-01 06:50] VITALS: BMI 25.7
== END | disposition home or self-care (01) ==
LOC: LABSPEC 10:48
PROVIDERS: Referring Provider Urology; Visit Provider Urology
DX: R31.29 Other microscopic hematuria (principal)
CPT/HCPCS: 87077; 87086; 87088; 87186

== ENCOUNTER 2020-05-29 08:24 | Day surgery (SDC) | payer MEDICARE, SELFPAY ==
[2020-01-01 06:50] VITALS: BMI 25.7
[2020-05-29 08:57] VITALS: BP 124/58; PULSE 74; RESP 18; TEMP 36.8; O2SAT 97; BMI 24.8
[2020-05-29] MEDS: Lactated Ringers 1,000 ML 100 ML IV (09:10)
[2020-05-29] MEDS: Cefazolin 2 GM in 0.9% Normal Saline 100 ML IV (09:50)
--- NOTE | 2020-05-29 09:55 | PCM.HP.STD ---
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 Past Medical History Medical History: Medical History (Last Reviewed 05/29/20 @ 09:[address] 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 HTN (hypertension) I10 Allergies cephalexin [From Keflex] Adverse Reaction (Verified 05/19/20 13:54) Diarrhea Home Medications: Ambulatory Orders Medication Instructions Recorded Metoprolol Tartrate [Lopressor] 12.5 mg PO QHS 06/27/13 Timolol 0.5% [Timoptic] 1 drp LEFT EYE DAILY 10/15/14 Aspirin [Aspir 81] 81 mg PO DAILY 02/19/19 Acetaminophen [Tylenol Extra 500 mg PO Q4H PRN PRN #20 tab 02/20/19 Strength] Polyethylene Glycol 3350 [Miralax] 17 gm PO DAILY PRN 05/09/19 latanoprost 0.005 % eye drops 1 drop OPHTHALMIC QHS 09/02/19 simvastatin 40 mg tablet 40 mg PO QHS 09/02/19 Cholecalciferol (Vitamin D3) 2,000 unit PO DAILY 12/31/19 [Vitamin D3] Ciprofloxacin [Cipro] 250 mg PO BID #6 tab 05/29/20 Surgical History: Surgical History (Last Updated 09/02/19 @ 13:27 by Maria Eugenia Canela) History of colonoscopy Z98.890 History of coronary artery bypass graft x 2 Z95.1 History of cystoscopy Z98.890 History of heart artery stent Z95.5 History of transurethral resection of prostate Z98.890, Z90.79 Surgical History: no surgical history Smoking Status: Current every day smoker Tobacco Use: Cigarettes Review of Systems Constitutional: Denies: Chills, Fever, Weight Change HEENT: Denies: Head Aches, Sinus Congestion, Sinus Drainage Cardiovascular: Denies: Chest Pain, Palpitations Respiratory: Denies: Cough, Shortness of breath at rest, Sputum production Gastrointestinal: Denies: Abdominal Pain, Nausea, Vomiting Genitourinary: Denies: Dysuria Musculoskeletal: Denies: Joint Pain, Joint Tenderness Skin: Denies: Rash, Wounds Neurological: Denies: Numbness, Tingling, Focal weakness Psychiatric: Denies: Anxiety, Depression, Homicidal Ideations, Suicidal Ideations Hematologic/ Lymphatic: Denies: Easy Bruising, Easy Bleeding VTE Information - Inpt Only VTE Present on Admission: No - Physical Exam Vitals/I&O's: Vital Signs Temp Pulse Resp BP Pulse Ox 98.2 F 74 18 124/58 H 97 05/29/20 08:57 05/29/20 08:57 05/29/20 08:57 05/29/20 08:57 05/29/20 08:57 Oxygen Delivery Method Room Air Weight: 69.9 kg Body Mass Index (BMI) 24.8 General: Alert, Oriented x3, Cooperative HEENT: Atraumatic, PERRLA, EOMI, Normocephalic Neck: Supple, No JVD, Negative Carotid Bruits Lungs: Clear to auscultation, Normal air movement Cardiovascular: Regular rate, No murmurs Abdomen: Bowel Sounds Present, Soft, Non Tender Extremities: No edema, Capillary Refill Less than 3 Seconds Skin: No rashes, No breakdown Musculoskeletal: No Tenderness to Palpation of Joints or Extremities Neurological: Cranial nerves II-XII grossly intact Psych/Mental Status: Normal Affect, Appropriate Current Medications Acetaminophen (Tylenol) 650 mg PO Q4H PRN PRN PRN Reason: Pain Score 1-5 Cefazolin Sodium 2 gm/ Sodium (Chloride) 110 mls @ 150 mls/hr IV PREOP ONE Stop: 05/29/20 10:43 Lactated Ringer's () 1,000 mls @ 100 mls/hr IV .Q10H WENDI Last Admin: 05/29/20 09:10 Dose: 100 mls/hr Documented by: Metoclopramide HCl (Reglan) 10 mg IV X1 PRN PRN Reason: NAUSEA/VOMITING Ondansetron HCl (Zofran) 4 mg IV X1 PRN PRN Reason: NAUSEA Oxycodone HCl (Oxyir) 5 - 10 mg PO Q6H PRN PRN PRN Reason: Pain Score 4-10 Assessment/Plan All Active Problems (Last Reviewed 01/01/20 @ 08:[address] Nazario Hunt MD) Complication of Ileal conduit (Acute) Plan for change of bilateral stents via the ileal conduit this is a complicated procedure. He understands it is possible that he may need percutaneous tubes if I failed to change the stents.
--- NOTE | 2020-05-29 09:56 | DCINST_ITS ---
Discharge Diet: Light diet - advance as tolerated Discharge Activity: Return to Normal Activity Allergies/Adverse Reactions: Allergies cephalexin [From Keflex] Adverse Reaction (Verified 05/19/20 13:54) Diarrhea Medications to take at Discharge Metoprolol Tartrate [Lopressor] 12.5 mg PO QHS 06/27/13 Timolol 0.5% [Timoptic] 1 drp LEFT EYE DAILY 10/15/14 Aspirin [Aspir 81] 81 mg PO DAILY 02/19/19 Acetaminophen [Tylenol Extra Strength] 500 mg PO Q4H PRN PRN #20 tab 02/20/19 Polyethylene Glycol 3350 [Miralax] 17 gm PO DAILY PRN 05/09/19 latanoprost 0.005 % eye drops 1 drop OPHTHALMIC QHS 09/02/19 simvastatin 40 mg tablet 40 mg PO QHS 09/02/19 Cholecalciferol (Vitamin D3) [Vitamin D3] 2,000 unit PO DAILY 12/31/19 Ciprofloxacin [Cipro] 250 mg PO BID #6 tab 05/29/20 The following prescriptions were given: Ciprofloxacin [Cipro] 250 mg PO BID #6 tab Transmission Status: Pending to [facility]/pharmacy #[id number] Primary Care Physician: Lana Solomon DO [Primary Care Provider] - Test Results: Test results from this visit will be discussed in further detail at your follow- up appointment, if applicable. Please Follow Up With: Nazario Hunt MD When: please call to make an appointment.
--- NOTE | 2020-05-29 10:49 | PCM.OPRPT ---
Problem List (1) Complication of Ileal conduit Status: Acute Report of Operation Date of Procedure: 05/29/20 Pre-Operative Diagnosis: Bilateral ureteral obstruction he has a proximal right ureter obstruction and also a left anastomotic stricture. Post-Operative Diagnosis: The same Surgery/Procedure Performed:: Cystoscopy via the ileal conduit, right retrograde pyelogram interpretation fluoroscopic images, right stent change. Removal of the left stent unable to change left stent Description of Surgical Findings:: 74-year-old male with a history of an ileal conduit have bladder cancer and has a conduit in place at this point was found to have anastomotic stricture on the left side which is managed with a stent was also found to have a stricture in the proximal right ureter from a stone this is being managed by stent today presents for stent changes as both the stents are getting encrusted. He was taken back to the operating room laid flat on the table the conduit was prepped and draped in usual sterile fashion went into the condyle with a flexible cystoscope asked very difficult this time could barely get past the fascia the first stent was emanating past the fascia this was the right stent I grabbed it with a grasper pulled out the meatus to the conduit entrance advance a wire through this with went into the wire quite easily all the way up to the kidney and then over the wire I placed a new stent on the right side I then tend to get back in the conduit but it was very difficult very tortuous conduit surprisingly really could not get into the conduit took a long time almost abandon to try to get to change the stent there when I got inside the conduit finally very tortuous conduit but finally got past the fascia and then we could see down the length the conduit grabbed the left stent pulled out to the entrance of the conduit put a wire through the stent but the wire would not go all through the way to the stent tried multiple attempts with smaller wires bigger wires but the end of the stent was completely encrusted was not able to change it so in trying to do the wire through the stent the stent came out on the left side and then I try to go back into the conduit to see if maybe we could cannulate the left ureteral orifice into the ileal conduit which again I knew would be very difficult but again the cut it was also tortuous I could not get past the fascia so at this point we abandoned the procedure in the left side I was able to change a stent in the right the retrograde pyelogram but remove the stent the left was not able to change it will have my office get him set up for a CT scan to evaluate see if we really need to put another stent on the left is possible he could try to go without so we will get him set up with a CAT scan if it does show hydro-then want to get him set up for a left percutaneous nephrostomy tube and possible left antegrade stent. Type of Anesthesia:: General Drains: right stent, left removed could not change - Admit VTE Documentation VTE Present on Admission: No VTE Mechan Device Prophylaxis: SCD's
[2020-05-29 10:58] VITALS: BP 124/58; BP 147/67; PULSE 77; RESP 18; TEMP 36.1; O2SAT 99
[2020-05-29 11:15] VITALS: BP 124/58; BP 137/68; PULSE 54; RESP 16; O2SAT 97
[2020-05-29 11:30] VITALS: BP 124/58; BP 146/62; PULSE 47; RESP 16; O2SAT 97
[2020-05-29 11:38] VITALS: BP 124/58; BP 150/79; PULSE 47; RESP 16; TEMP 36.1; O2SAT 98
[2020-05-29 11:59] VITALS: BP 124/58
== END 2020-05-29 12:01 | disposition home or self-care (01) ==
LOC: SDC 08:24 → AC 08:28
PROVIDERS: Anesthesiology; Referring Provider Urology; Visit Provider Urology
PROC: (CPT 50688; principal; 2020-05-29 09:45)
DX: N13.1 Hydronephrosis with ureteral stricture, not elsewhere classified (principal); Z11.59 Encounter for screening for other viral diseases; I25.10 Atherosclerotic heart disease of native coronary artery without angina pectoris; I10 Essential (primary) hypertension; E78.5 Hyperlipidemia, unspecified; G47.30 Sleep apnea, unspecified; F17.210 Nicotine dependence, cigarettes, uncomplicated; Z79.82 Long term (current) use of aspirin; Z79.899 Other long term (current) drug therapy; I25.2 Old myocardial infarction; Z85.51 Personal history of malignant neoplasm of bladder; Z95.1 Presence of aortocoronary bypass graft; Z95.5 Presence of coronary angioplasty implant and graft
CPT/HCPCS: 50688; 76000; 87635; C9803; J7120; C1769; C2617; J2405; U0003

== ENCOUNTER → 2020-06-04 16:12 | Outpatient (CLI) | payer MEDICARE, SELFPAY ==
[2020-05-29 08:57] VITALS: BMI 24.8
--- NOTE | 2020-06-04 16:21 | CT_ITS ---
STUDY: CT ABDOMEN AND PELVIS WITHOUT CONTRAST REASON FOR EXAM: Male, 74 years old. HYDRONEPHROSIS, KIDNEY STONE, RT URETERAL STENT, BLADDER/PROSTATE CANCER-BOTH REMOVED RADIATION DOSAGE (If Supplied By Facility): CTDIvol = ( 6.60 ) mGy, DLP = ( 311.65 ) mGycm TECHNIQUE: Transaxial images were obtained from the dome of the diaphragm to the symphysis pubis without oral contrast, and without intravenous contrast. Sagittal and coronal images were reconstructed. Individualized dose optimization techniques were used for this CT. COMPARISON: 02/02/2019 FINDINGS: The visualized lung bases are unremarkable. The visualized portions of the heart are within normal limits. Normal liver. Normal gallbladder and extrahepatic biliary system. Normal spleen. Normal pancreas. Normal bilateral adrenal glands. Right ureteral stent without hydronephrosis ureteral dilatation. Moderate hydronephrosis and ureteral dilatation to the right lower quadrant ileal conduit. Normal visualized stomach. Normal small intestine. There are multiple colonic diverticula consistent with diverticulosis. The appendix is visualized and appears normal. There is diffuse atherosclerotic calcification of the abdominal aorta, without a demonstrated aneurysm. Normal inferior vena cava. Retroperitoneal lymphadenopathy measuring 3.5 x 5.5 cm consistent with metastatic lymphadenopathy. Status post cystectomy with right lower quadrant ileal conduit. Normal abdominal wall. Normal osseous structures. CT/Abdomen/Pelvis without Cont IMPRESSION: 1. Status post cystectomy with a right lower quadrant ileal conduit with a right-sided ureteral stent and moderate hydronephrosis and ureteral dilatation on the left. 2. Metastatic retroperitoneal lymphadenopathy. Electronically Signed: Eleuterio Dubon MD at 17:45 EDT Tel , Service support ,
[2020-06-04 17:45] LABS: Anion Gap 4 (5-15); BUN 32 mg/dL (7-18); BUN/Creat Ratio 19.2 RATIO (10-20); Calcium,Total 9.1 mg/dL (8.5-10.1); Chloride 111 mmol/L (98-107); Creatinine, Serum 1.67 mg/dL (0.70-1.30); EST Glomerular Filtration Rate 43 mL/min (>60); Est Glom Filt Rate - Afr Amer 52 mL/min (>60); Glucose 91 mg/dL (74-106); Potassium 4.3 mmol/L (3.5-5.1); Sodium Level 142 mmol/L (136-145)
== END ==
PROVIDERS: Referring Provider Urology; Visit Provider Urology
DX: N13.2 Hydronephrosis with renal and ureteral calculous obstruction (principal)
CPT/HCPCS: 36415; 74176; 80048

== ENCOUNTER → 2020-06-22 08:43 | Outpatient (CLI) | payer MEDICARE, SELFPAY ==
[2020-06-11 09:46] VITALS: BMI 25.0
[2020-06-22] VITALS (9 sets, daily range): BP systolic 91–151; BP diastolic 57–82; PULSE 42–64; RESP 10–19; TEMP 37; O2SAT 95–100; BMI 24.8
--- NOTE | 2020-06-22 | IMM_PTH ---
PATIENT: RAMY BALL LOC: CT U#:[id number] AGE/SX: 79/M ROOM: RE06/22/[address]: Dr. Demian Ramirez MD : 1945 BED: DIS: SPEC #: [id number] RECD: 06/23/20 14:05 STATUS: [place] REQ #: [id number] JANEL: 06/22/20 00:[address]: Demian Ramirez DEPT: IMMUNOHISTOCHEMISTRY RECD BY: Ariana Wilder ENTERED: 06/23/20 14:08 SP TYPE: IMMUNO OTHR DR: Dr. Lana Solomon, Tissues: Retroperitoneum, NOS Procedures: RCC (add) NAPSIN A (add) CK20 (add) CK5-6 (add) CK7 (add) CK8 (add) HEP PAR (add) TTF1 (add) Pankeratin (initial) P40 (add) CD44 (add) PSAP (add) PHYSICIAN & [place] [id number] SPECIMEN INFORMATION: Tissue Source: Retroperitoneal lymph node Clinical Info: Intra-abdominal lymphadenopathy Specimen Number: [id number] CPT code: 20666, 30614 x11 METHODOLOGY: Deparaffinized sections of prefer/formalin-fixed tissue or PAP/DQ stained slides are incubated with monoclonal/polyclonal antibodies/oligonucleotide probes. Localization is made via biotin free immunoperoxidase method. Appropriate controls are performed and reacted as expected. Results on target cell population are indicated in the following table: RESULTS: ANTIBODY / CLONE RESULT AE1-3 (AE1/AE3/PCK26) positive CK7 (OV-TL12/30) positive CK8 (90qsgcY19) positive CK20 (KS20.8) positive TTF-1 (8G7G3/1) negative Napsin A (Rabbit Polyclonal) negative HepPar (OCh1E5) negative RCC (PN-15) negative PSAP (PASE/4LJ) negative anti-CD44 (SP37) negative CK5-6 (D5 & 1684) negative P40 (BC28) positive These tests were developed and their performance characteristics determined by [facility]. They may not have been cleared or approved by the U.S. Food and Drug Administration. The FDA has determined that such clearance or approval is not necessary. The above immunohistochemical/dualISH markers are ordered and reviewed by the Pathologist. INTERPRETATION: Retroperitoneal lymph node, CT-guided biopsy: Metastatic non-small cell carcinoma, consistent with clinical impression of bladder primary. SJ:kaylah 06/24/20
--- NOTE | 2020-06-22 08:44 | CT_ITS ---
PROCEDURE: CT GUIDED biopsy of the left retroperitoneal lymph nodes. DATE: 06/22/2020. INDICATION: Male, 74 years old. Retroperitoneal lymphadenopathy. PHYSICIAN: Franky Perla M.D. RADIATION DOSAGE (If Supplied By Facility): CTDIvol = ( 20 ) mGy, DLP = ( 681.83 ) mGycm. Individualized dose optimization techniques were utilized. PROCEDURE: The risks, benefits, and alternatives to the procedure were explained to the patient. The specific risk of hemorrhage requiring further treatment or intervention was detailed and accepted. Follow-up instructions were discussed with the patient as well. Written informed consent was obtained. The patient was brought into the CT suite and placed in the prone position. . An appropriate entry site was identified. The overlying skin was prepped and draped in the usual sterile fashion. 1% lidocaine was administered subcutaneously for local anesthesia. Conscious sedation was performed. The patient received 2 mg of VERSED and 50 mcg of FENTANYL intravenously. Conscious sedation was started at 10:57 AM and terminated 11:05 AM. The patient was independently monitored by the department nurse. Under CT guidance, a total of 5 passes were performed utilizing an 18-gauge core biopsy needle. The specimens were then placed in the appropriate fluid and transported to the laboratory for analysis. Hemostasis was obtained. The patient tolerated the procedure well without immediate complications. CT/Biopsy/Inj or Needle Placement IMPRESSION: Successful CT guided biopsy of the left retroperitoneal lymph node., as described above. Conscious sedation protocol was followed. Electronically Signed: Franky Perla, at 12:13 EST , Service support ,
[2020-06-22 09:09] LABS: Absolute Lymphocyte Count 1.46 X10^3/uL (0.83-4.51); Absolute Neutrophil Count 3.7 X10^3/uL (2.0-7.7); Basophil# 0.11 X10^3/uL; Basophil% 1.7 % (0-1); Eosinophil# 0.48 X10^3/uL; Eosinophils% 7.5 % (0-5); Hematocrit 38.8 % (40-54); Lymphocyte # 1.46 X10^3/ul (4.0); Lymphocyte % 22.8 % (19-41); Mean Corp Hgb Conc 30.9 g/dL (32-36); Mean Corpuscular Hgb 29.3 pg (27.0-32.0); Mean Corpuscular Volume 94.6 fL (80-94); Mean Platelet Vol. 8.8 fl (6.2-12.0); Monocyte# 0.56 X10^3/uL; Monocyte% 8.8 % (0-10); NRBC Flagged by Analyzer 0 % (0-5); Neutrophil # 3.74 X10^3/uL (2.7-7.7); Neutrophil % 58.6 % (47-70); Platelet Count 221 K/mm3 (150-450); RBC Distribution Width CV 14.5 % (11.6-14.6); RBC Distribution Width SD 50.4 fl (35.1-43.9); White Blood Count 6.4 K/mm3 (4.4-11.0)
--- NOTE | 2020-06-22 09:20 | NURSING ---
Pt states he has a low heart rate regularly.
[2020-06-22 09:28] LABS: International Normalized Ratio 1.1
[2020-06-22 09:30] LABS: Partial Thromboplast Time 31.7 Seconds (24.1-36.2)
[2020-06-22] MEDS: Midazolam 2 MG/2 ML Syringe IV ×2 (10:16→10:51)
[2020-06-22] MEDS: fentaNYL 100 MCG/2 ML Ampul IV ×2 (10:18→10:53)
--- NOTE | 2020-06-22 10:58 | ASPIGT_PTH ---
PATIENT: RAMY BALL LOC: [place] U#:[id number] AGE/SX: 79/M ROOM: RE06/22/[address]: Dr. Demian Ramirez MD : 1945 BED: DIS: SPEC #: [id number] RECD: 06/22/20 11:30 STATUS: [place] USAMA #: [id number] JANEL: 06/22/20 10:[address]: Demian Ramirez DEPT: SURGICAL PATHOLOGY RECD BY: Veronika Sorto ENTERED: 06/22/20 13:19 SP TYPE: ASP RAD OTHR DR: Dr. Lana Solomon DO Tissues: LYMPH NODE BIOPSY Procedures: FNA Specimen Adequacy Special Stain Group II Surgery Specimen Level IV Imprint (control) HEADER OPERATION: CT-guided left side retroperitoneal lymph node biopsy PRE-OP DIAGNOSIS: Intra-abdominal lymphadenopathy TISSUE SUBMITTED: Retroperitoneal lymph node 18-gauge core MICROSCOPIC DIAGNOSIS Retroperitoneal lymph node, CT-guided core biopsy: Metastatic non-small cell carcinoma, consistent with clinical impression of bladder primary. See comment. Efren 06/23/20 COMMENT The specimen is evaluated at the time of biopsy by Dr. Cook. Immediate Evaluation = Malignant cells present derived from metastatic non-small cell carcinoma. Immunohistochemistry ([id number]) supports the above diagnosis. 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 Case has been reviewed in consultation with Dr. Ga who concurs with the above diagnosis. IDC:AM MICROSCOPIC DESCRIPTION Slides are reviewed. GROSS DESCRIPTION Received in fixative is one container labeled with the patient's name and designated retroperitoneal lymph node, CT-guided core biopsy. The specimen consists of multiple irregular fragments of escobar soft tissue that in aggregate measure 1 x 0.2 x 0.1 cm. The specimen is totally submitted in one cassette. Two touch imprints are prepared at the time of core biopsy. / NBA:kaylah 11/2/20 TC:0 CPT: 75680, 98484
--- NOTE | 2020-06-22 11:35 | NURSING ---
1015, Pt positioned in prone position for left retroperitoneal lymph node biopsy. Pt has right arm down by right side, left arm is up over head. IV is in left AC, it appears to be flowing well. Pt denies pain. YINKA Basilio informs pt at 1015 that she will be giving IV Versed, pt states ok, YINKA Basilio proceeds to administer Versed at closest port to IV in primary IV line. YINKA Basilio flushes with 6mL NS. YINKA Basilio then scans Fentanyl, walks around the CT table and starts administering IV Fentanyl. While giving the Fentanyl, YINKA Basilio asks pt Are you feeling ok? Any pain at all? Pt replies I'm doing ok, but it hurt in my arm when you were giving that medication. YINKA Basilio asks Is it still hurting now Pt states Yes YINKA Basilio stops pushing Fentanyl and assesses left AC by uncovering the strap holding the patient's arm in position and feeling above the IV site. The site is swollen and hard, no color change. IV is immediately stopped and discontinued. Coban and pressure is applied to left AC. Dr. Perla is made aware that patient's IV infiltrated and he will need new access before procedure can be started. Dr. Perla states when new access is obtained to repeat 2mg Versed and 50mcg Fentanyl. YINKA Basilio asks pt how he is feeling, pt states I feel fine, not tired at all. New IV access is established in right AC by YINKA Kay. Pt is repositioned prone. During personal computer specialist images, YINKA Basilio calls pharmacy to confirm it is safe to give patient 2mg Versed and 50mcg Fentanyl given the first doses are in the tissues of his left AC. Oralia, Pharmacist reports that Versed's max effects are 30 minutes post administration and Fentanyl's are 1-2 hours post administration. Pt received initial doses more than 30 minutes prior to second personal computer specialist images being taken. Oralia confirms it is safe to proceed giving pt the ordered 2mg Versed and 50mcg Fentanyl IV. Prior to giving pt medication YINKA Basilio asks pt if he is feeling tired or sleepy at all, pt denies. Procedure is restarted (see MAR and procedural sedation documentation).
== END ==
PROVIDERS: Referring Provider Internal Medicine Hematology & Oncology; Visit Provider Internal Medicine Hematology & Oncology
DX: C77.2 Secondary and unspecified malignant neoplasm of intra-abdominal lymph nodes (principal); C61 Malignant neoplasm of prostate; C67.9 Malignant neoplasm of bladder, unspecified; R59.0 Localized enlarged lymph nodes; Z85.51 Personal history of malignant neoplasm of bladder
CPT/HCPCS: 49180; 36415; 77012; 85025; 85610; 85730; 88172; 88305; 88313; 88341; 88342; J7040; A4216

== ENCOUNTER → 2020-07-06 13:55 | Outpatient (CLI) | payer MEDICARE, SELFPAY ==
[2020-06-29 11:08] VITALS: BMI 24.8
[2020-07-01 14:25] VITALS: BMI 24.9
--- NOTE | 2020-07-06 14:06 | CT_ITS ---
STUDY: CT CHEST WITH CONTRAST REASON FOR EXAM: Male, 74 years old. Initial staging of bladder cancer that''s recurrence. Starting chemo in 1 week. Prostate and bladder removed RADIATION DOSAGE (If Supplied By Facility): CTDIvol = ( 13.74 ) mGy, DLP = ( 407.24 ) mGycm TECHNIQUE: Transaxial imaging was performed following intravenous administration of IV 100mL Isovue-300. Multiplanar coronal and sagittal images were reformatted. Individualized dose optimization techniques were used for this CT. COMPARISON: None. FINDINGS: Small bulla are seen in the medial aspect of the left lung apex. Minimal increased linear markings suggestive of mild scarring. There is no demonstrated pleural abnormality. Sternal cerclage wires and vascular clips are present from a prior sternotomy and coronary artery bypass graft procedure (CABG). There are calcifications of the coronary arteries. There are multiple small lymph nodes within the mediastinum, which are normal in size and morphology most compatible with reactive lymph hyperplasia. Normal hilar regions. Normal enhanced pulmonary arteries. There is atherosclerotic calcification of the aortic arch with tortuosity and elongation of the aortic arch and descending thoracic aorta. There are multi-level degenerative changes of the thoracic spine. There is a 7.3 mm hypodense nodule in the dome of the right lobe of the liver. This may represent a small cyst. Bilateral hydronephrosis. CT/Chest WITH Contrast IMPRESSION: Mild degree of scarring and bullous changes. Questionable small cyst in the dome of the right lobe of the liver. Electronically Signed: Franky Perla, at 15:12 EST , Service support ,
[2020-07-06 14:11] LABS: CREATININE FINGERSTICK 1.2 mg/dL (0.70-1.30)
== END ==
PROVIDERS: Referring Provider Internal Medicine Hematology & Oncology; Visit Provider Internal Medicine Hematology & Oncology
DX: C67.9 Malignant neoplasm of bladder, unspecified (principal); C77.2 Secondary and unspecified malignant neoplasm of intra-abdominal lymph nodes
CPT/HCPCS: 71260; Q9967

== ENCOUNTER → 2020-07-08 10:28 | Outpatient (CLI) | payer MEDICARE, SELFPAY ==
[2020-06-29 11:08] VITALS: BMI 24.8
[2020-07-01 14:25] VITALS: BMI 24.9
--- NOTE | 2020-07-08 10:35 | NM_ITS ---
CLINICAL: 74-year-old male with reported history of primary prostate and bladder carcinoma. WHOLE BODY 99m Tc MDP RADIONUCLIDE BONE SCINTIGRAPHY COMPARISON: CT of the abdomen-pelvis report 06/04/2020 FINDINGS: Following the intravenous administration of 25.0 mCi of 99m Tc MDP, whole body bone images reveal: 1. Increased radiopharmaceutical concentration is identified in the glenohumeral, sternoclavicular and acromioclavicular compartments of both shoulders, second lumbar vertebra posteriorly on the right, fourth lumbar vertebra posteriorly on the left, caudal aspect of the right sacroiliac joint. 2. The remaining skeletal structures are scintigraphically unremarkable with the bilateral renal images identified. There is evidence of an apparent ileal conduit-urinary diversion with absence of the urinary bladder. The left kidney demonstrates markedly prominent collecting system activity with heterogeneous tracer distribution visualized in the right renal unit. NM/Bone Scan Whole Body IMPRESSION: 1. The increase in tracer concentration observed in the bilateral shoulders, lumbar spine, right sacroiliac joint is most consistent with degenerative arthritis. 2. There is no definitive typical scintigraphic evidence of diffuse axial skeletal metastatic disease. Electronically Signed: Eleuterio Fiore DO at 23:26 EST Tel , Service support ,
== END ==
PROVIDERS: Referring Provider Internal Medicine Hematology & Oncology; Visit Provider Internal Medicine Hematology & Oncology
DX: C67.9 Malignant neoplasm of bladder, unspecified (principal); C77.2 Secondary and unspecified malignant neoplasm of intra-abdominal lymph nodes; Z20.828 Contact with and (suspected) exposure to other viral communicable diseases
CPT/HCPCS: 78306; 87426; C9803

== ENCOUNTER 2020-07-09 09:55 | Day surgery (SDC) | payer MEDICARE, SELFPAY ==
[2020-07-01 14:25] VITALS: BMI 24.9
[2020-07-06 15:30] LABS: Anion Gap 6 (5-15); BUN 50 mg/dL (7-18); Calcium,Total 9.4 mg/dL (8.5-10.1); Chloride 103 mmol/L (98-107); Creatinine, Serum 2.17 mg/dL (0.70-1.30); EST Glomerular Filtration Rate 32 mL/min (>60); Est Glom Filt Rate - Afr Amer 38 mL/min (>60); Glucose 81 mg/dL (74-106); Potassium 4.3 mmol/L (3.5-5.1); Sodium Level 138 mmol/L (136-145)
[2020-07-09 10:15] VITALS: BP 113/53; PULSE 77; RESP 16; TEMP 37.2; O2SAT 100; BMI 24.5
[2020-07-09] MEDS: Lactated Ringers 1,000 ML 100 ML IV (10:26)
--- NOTE | 2020-07-09 11:18 | PCM.HP.BLA ---
Problem List (1) Metastatic cancer to intra-abdominal lymph nodes Status: Acute History and Physical Date of Admission: 07/09/20 Intake Visit Reasons: Port Placement Chief Complaint: discuss port placement Roller Picker Required: No Is patient in pain?: No Allergies cephalexin [From Keflex] Adverse Reaction (Verified 07/01/20 14:25) Diarrhea Medications Metoprolol Tartrate [Lopressor] 12.5 mg PO QHS 06/27/13 [History Confirmed 07/01/20] Timolol 0.5% [Timoptic] 1 drp LEFT EYE DAILY 10/15/14 [History Confirmed 07/01/20] Acetaminophen [Tylenol Extra Strength] 500 mg PO Q4H PRN PRN #20 tab 02/20/19 [Rx Confirmed 07/01/20] Polyethylene Glycol 3350 [Miralax] 17 gm PO DAILY PRN 05/09/19 [History Confirmed 07/01/20] latanoprost 0.005 % eye drops 1 drp OPHTHALMIC QHS 09/02/19 [History Confirmed 07/01/20] simvastatin 40 mg tablet 40 mg PO QHS 09/02/19 [History Confirmed 07/01/20] Cholecalciferol (Vitamin D3) [Vitamin D3] 2,000 unit PO DAILY 12/31/19 [History Confirmed 07/01/20] Aspirin [Adult Low Dose Aspirin EC] 81 mg PO DAILY 06/29/20 [History Confirmed 07/01/20] PFSH Medical History Cardiac murmur (Acute) Cataract (Acute) Constipation (Acute) History of bladder carcinoma (Acute) History of hyperlipidemia (Acute) Myocardial infarction (Acute) Sleep apnea (Acute) 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 (Acute) HTN (hypertension) (Chronic) Surgical History History of colonoscopy (Acute) History of coronary artery bypass graft x 2 (Acute) History of cystoscopy (Acute) History of heart artery stent (Acute) History of transurethral resection of prostate (Acute) Family History Father Heart disease Mother Hypertension Social History (Updated 07/01/20 @ 14:[address] Clarke Silveira MD) Smoking Status: Current every day smoker HPI HPI HPI: RAMY BALL, is a 74 M who presents to the office today for surgical consultation for placement of a port to assist with chemotherapy further treatment of bladder cancer with metastasis to his kidney. The patient was referred by Dr. Demian Ramirez and written copy my surgical consult and recommendations will return to him. Very pleasant 74-year-old gentleman. He will be initiating chemotherapy I believe on the . He has previously had open heart surgery. He has previously had a radical cystectomy with ileal loop. He has had multiple ventral hernias repaired. He has an ongoing loop ileostomy peristomal hernia. He is being considered for palliative treatment. HPI HPI HPI: RAMY BALL, is a 74 M who presents to the office today for ROS General General: No weight change, appetite, fatigue, colon cancer, breast cancer or weakness HEENT HEENT: No difficulty swallowing, eye injury, eye surgery, swollen glands or hoarseness Endo Endocrine: No thyroid disease, diabetes mellitus, thyroid cancer, Hair loss, heat intolerance or cold intolerance Cardio Cardiovascular: Yes high blood pressure, heart attack and heart stent; no murmur, pacemaker, heart disease, atrial fibrillation, palpitations, shortness of breat with exertion or chest pain Psych Psychiatric: No depression, anxiety or hearing voices Resp Respiratory: No shortness of breath, Yes sleep apnea, No cough, No COPD, No asthma, No emphysema, No wheezing Gastro Gastrointestinal: No abdominal pain, No nausea or vomiting, No diarrhea, Yes constipation, No blood in stool, No acid reflux, No hemorrhoids, No ulcers, No gallbladder problem, No black,tarry stools Finesse Hematologic: Yes blood thinners, No blood disorders, No bleeding, No anemia, No blood clots Neuro Neurologic: No weakness Exam Const General: cooperative, comfortable, no acute distress Nutritional Appearance: average body habitus Orientation: alert, awake [facility] Head: normal to inspection Eyes General: appearance normal, both eyes and all related structures Chest Chest palpation & inspection: normal inspection of the chest Other: Well-healed median sternotomy incision. Prominent xiphoid process. Resp Auscultation: clear to auscultation bilaterally Other: Slightly diminished respiratory excursion bilaterally Cardio Rate: regular rate Rhythm: regular rhythm Heart Sounds: no murmurs GI Palpation: soft, no hepatosplenomegaly Other: Parastomal hernia right lower quadrant Musc Cervical Spine: normal cervical lordosis Neuro Cognition: normal cognition Extrem General: no calf tenderness Psych Affect: normal affect Assessment & Plan Problems 1. Metastatic cancer to intra-abdominal lymph nodes C77.2 2. Bladder cancer C67.9 3. Prostate cancer C61 4. Complication of Ileal conduit N99.528 Plan I recommended the patient a right internal jugular port placement. I described the technique, benefit, risk and alternatives. He is aware that we may need to convert to placement on the left if indicated. He otherwise has a healed median sternotomy incision. He is aware we will use ultrasound for guidance. He has had an opportunity to ask and have questions answered. We will schedule and try to facilitate his management. I very much appreciate the ongoing opportunity of assisting with his surgical care Copy: Dr. Demian Ramirez and Dr. Lana Silveira M.D., F.A.C.S. Coding Level of Care Code 91953 Diagnoses Metastatic cancer to intra-abdominal lymph nodes C77.2 Bladder cancer C67.9 Prostate cancer C61 Complication of Ileal conduit N99.528 I have re-examined the patient. There are no clinical changes since date of exam. Procedure Criteria Procedure Type: Elective COVID Risk Discussion: The surgeon/proceduralist and patient have discussed in detail the risk of exposure to and/or potential harm posed by the COVID-19 virus with having a surgery/procedure at this time versus the risk of delaying the surgery/procedure. It is not possible to know either the risk of delaying the surgery or procedure or chance of getting an infection with perfect accuracy, but a joint decision was made between the patient and the surgeon/proceduralist to proceed at this time with the scheduled surgery/procedure as indicated on the consent form.
--- NOTE | 2020-07-09 11:49 | DCINST_ITS ---
Discharge Diet: No Restrictions - Pain medication may cause nausea. You should typically eat light foods as you take your pain medication. Discharge Activity: Return to Normal Activity, May Shower Additional Dressing/Incision Instructions:: Leave the bandage on for 3 days. When you remove the bandage, leave the steri-strips intact for one week--you may then remove them. Allergies/Adverse Reactions: Allergies cephalexin [From Keflex] Adverse Reaction (Verified 07/06/20 11:07) Diarrhea Medications to take at Discharge Metoprolol Tartrate [Lopressor] 12.5 mg PO QHS 06/27/13 Timolol 0.5% [Timoptic] 1 drp LEFT EYE DAILY 10/15/14 Acetaminophen [Tylenol Extra Strength] 500 mg PO Q4H PRN PRN #20 tab 02/20/19 Polyethylene Glycol 3350 [Miralax] 17 gm PO DAILY PRN 05/09/19 latanoprost 0.005 % eye drops 1 drp OPHTHALMIC QHS 09/02/19 simvastatin 40 mg tablet 40 mg PO QHS 09/02/19 Cholecalciferol (Vitamin D3) [Vitamin D3] 2,000 unit PO DAILY 12/31/19 Aspirin [Adult Low Dose Aspirin EC] 81 mg PO DAILY 06/29/20 Lidocaine/Prilocaine [Lidocaine-Prilocaine Cream] 1 applicatio TP DAILY PRN PRN 30 Days #1 tube 07/01/20 Ondansetron [Ondansetron Odt] 8 mg PO Q8H PRN PRN 10 Days #30 tab.rapdis 07/01/20 Primary Care Physician: Lana Solomon DO [Primary Care Provider] - Test Results: Test results from this visit will be discussed in further detail at your follow- up appointment, if applicable. Please Follow Up With: Clarke Silveira MD - [phone] When: May call the office with any concerns
--- NOTE | 2020-07-09 11:51 | RAD_ITS ---
STUDY: X-RAY CHEST REASON FOR EXAM: Male, 74 years old. POST RIGHT PORT PLACEMENT TECHNIQUE: Single AP portable view of the chest. COMPARISON: None. FINDINGS: A right-sided Port-A-Cath has been placed. The tip is in the midportion of the superior vena cava. Hyperinflation. There is no demonstrated pleural abnormality. Sternal cerclage wires and vascular clips are present from a prior sternotomy and coronary artery bypass graft procedure (CABG). Normal mediastinum and jovita. Normal visualized pulmonary arteries. There is atherosclerotic calcification of the aortic arch with tortuosity. There are diffuse degenerative changes of the visualized thoracic spine. Normal visualized ribs, clavicles, and shoulders. There is no demonstrated abnormality of the visualized soft tissue structures of the upper abdomen. RAD/CXR for Line Placement IMPRESSION: The tip of the right portacatheter is in the midportion of the superior vena cava. Hyperinflation. Electronically Signed: Franky Perla, at 13:08 EST , Service support ,
[2020-07-09] MEDS: Bupivacaine Mpf 0.5% 30 ML VIAL (12:28)
[2020-07-09] MEDS: Lidocaine 1% (30 ml sdv) 30 ML Vial (12:29)
--- NOTE | 2020-07-09 12:34 | OP.PCM_ITS ---
Problem List (1) Metastatic cancer to intra-abdominal lymph nodes Status: Acute Report of Operation Date of Procedure: 07/09/20 Pre-Operative Diagnosis: Metastatic bladder cancer Post-Operative Diagnosis: Same Surgery/Procedure Performed:: Right internal jugular 6 [place] PowerPort placement. Reference #[id number]. Lot number [id number]. Expiry date 04/20/2021 Description of Surgical Findings:: Timeout and informed consent was obtained. 74-year-old gentleman was taken to the operating place upon the table underwent monitored anesthesia care. Clindamycin 900 mg were given intravenously preoperatively. Clean prosthetic procedure. The right neck and chest were sterilely prepped and draped. Ultrasound was used to identify the right internal jugular vein. 1% lidocaine mixed 50-50 with 0.5% Marcaine was used as a local anesthetic. Throughout the procedure a total of 13 cc was used. Local was instilled under ultrasound guidance. Micropuncture needle inserted under ultrasound guidance into the right internal jugular vein followed by Seldinger wire advancement. Local was instilled down upon the chest wall transverse incision was created using electrocautery a subcutaneous pocket was created. The tubing was tunneled from the chest to the neck site. Sheath dilator was placed over the micropuncture wire and 035 J-wire was inserted and then using fluoroscopic control a sheath dilator was inserted. The wire dilator removed the catheter advanced through the sheath the sheath was split the catheter was positioned at the SVC atrial junction. It was amputated to length connected the port secured superiorly with the port attachment device. The port was placed in the pocket and secured there with 2-0 silk. The wound was closed with interrupted 3-0 Vicryl subdermal sti tches. The neck was closed interrupted 5-0 Vicryl subdermal stitch. The port was accessed and aspirated easily was flushed with saline and then 2-1/2 cc of heparinized saline. Steri-Strips and Telfa and OpSite dressings applied. Sponge and instrument and needle counts were reported to the surgeon to be correct. Blood loss was minimal. The patient was taken to recovery area in satisfactory edition without apparent complication. Stat portable chest x-ray is pending. Specimens none. Drains none. Blood loss minimal. Clarke Silveira M.D., F.A.C.S. Type of Anesthesia:: Local MAC Anesthesiologist: Jose J Cordoba
[2020-07-09 12:45] VITALS: BP 113/53; BP 116/59; PULSE 64; RESP 16; TEMP 36.3; O2SAT 100
[2020-07-09 12:50] VITALS: BP 113/53; BP 98/64; PULSE 58; RESP 16; O2SAT 100
[2020-07-09 12:55] VITALS: BP 113/53; BP 94/64; PULSE 65; RESP 16; O2SAT 100
[2020-07-09 13:00] VITALS: BP 113/53; BP 93/59; PULSE 64; RESP 16; TEMP 36.3; O2SAT 98
[2020-07-09 14:00] VITALS: BP 113/53; BP 113/56; PULSE 52; RESP 16; TEMP 36.4; O2SAT 99
== END 2020-07-09 14:04 | disposition home or self-care (01) ==
LOC: SDC 09:55 → AC 09:56
PROVIDERS: Referring Provider Surgery; Visit Provider Surgery
PROC: (CPT 36561; principal; 2020-07-09 11:45)
DX: Z45.2 Encounter for adjustment and management of vascular access device (principal); C67.9 Malignant neoplasm of bladder, unspecified; C61 Malignant neoplasm of prostate; C79.00 Secondary malignant neoplasm of unspecified kidney and renal pelvis; C77.2 Secondary and unspecified malignant neoplasm of intra-abdominal lymph nodes; N99.528 Other complication of incontinent external stoma of urinary tract; I10 Essential (primary) hypertension; E78.00 Pure hypercholesterolemia, unspecified; G47.30 Sleep apnea, unspecified; F17.200 Nicotine dependence, unspecified, uncomplicated; Z79.82 Long term (current) use of aspirin; Z79.899 Other long term (current) drug therapy; I25.2 Old myocardial infarction; Z85.51 Personal history of malignant neoplasm of bladder; Z95.1 Presence of aortocoronary bypass graft; Z95.5 Presence of coronary angioplasty implant and graft
CPT/HCPCS: 00532; 36561; 36415; 71045; 77001; 80048; J7120; J2405

== ENCOUNTER → 2020-09-01 13:59 | Outpatient (CLI) | payer MEDICARE, SELFPAY ==
[2020-08-24 10:03] VITALS: BMI 25.1
[2020-08-31 09:36] VITALS: BMI 25.0
--- NOTE | 2020-09-01 14:03 | ART_ITS ---
Reason For Study: leg weakness Procedure A bilateral lower extremity continuous wave Doppler with analog waveform analysis,segmental pressures,and ankle brachial indexes without exercise. Left Segmental Pressures Left brachial= 128mmHg. Left thigh = 89mmHg. Left calf = 84mmHg. Left posterior tibial artery = 71mmHg. Left dorsalis pedis artery = 86mmHg. The left dorsalis pedis waveforms are monophasic. The left posterior tibial artery waveforms are monophasic. Right Segmental Pressures Right brachial= 132mmHg. Right thigh = 104mmHg. Right calf = 98mmHg. Right posterior tibial artery = 83mmHg. Right dorsalis pedis artery = 100mmHg. The right dorsalis pedis waveforms are biphasic. The right posterior tibial artery waveforms are monophasic. Indices The right ankle brachial index by the dorsalis pedis is .76. The right ankle brachial index by the posterior tibial artery is .63. The left ankle brachial index by the dorsalis pedis is .65. The left ankle brachial index by the posterior tibial artery is .54. Interpretation Summary Monophasic and biphasic Doppler waveforms are noted at ankle level on the right. Monophasic Doppler waveforms are noted at ankle level on the left. Pulse-volume recording waveform amplitudes are diminished at low-thigh, calf, and ankle levels on the left. Resting ankle-brachial indices are moderately diminished bilaterally. There is evidence of moderate arterial occlusive disease in the lower extremities bilaterally. Ordering Physician: PRADIP WELDON Performed By: JEM WALLS RVT
== END ==
DX: I70.203 Unspecified atherosclerosis of native arteries of extremities, bilateral legs (principal); R53.1 Weakness; C67.9 Malignant neoplasm of bladder, unspecified; Z85.46 Personal history of malignant neoplasm of prostate; I25.119 Atherosclerotic heart disease of native coronary artery with unspecified angina pectoris; R29.898 Other symptoms and signs involving the musculoskeletal system; Z87.891 Personal history of nicotine dependence; Z95.5 Presence of coronary angioplasty implant and graft; I77.1 Stricture of artery
CPT/HCPCS: 93923; 96372; Q5111

== ENCOUNTER → 2020-09-09 08:20 | Outpatient (CLI) | payer MEDICARE, SELFPAY ==
[2020-08-31 09:36] VITALS: BMI 25.0
[2020-09-01 14:59] VITALS: BMI 25.0
--- NOTE | 2020-09-09 08:22 | CT_ITS ---
STUDY: CT ABDOMEN AND PELVIS WITHOUT CONTRAST REASON FOR EXAM: Male, 75 years old. BLADDER CANCER TREATMENT ASSESSMENT. RADICAL CYSTECTO-PROSTATECTOMY AND CURRENTLY ON CHEMO RADIATION DOSAGE (If Supplied By Facility): CTDIvol = ( 12.38 ) mGy, DLP = ( 591.64 ) mGycm TECHNIQUE: Transaxial images were obtained from the dome of the diaphragm to the symphysis pubis without oral contrast, and without intravenous contrast. Sagittal and coronal images were reconstructed. Individualized dose optimization techniques were used for this CT. COMPARISON: Comparison is made with prior examination dated 06/04/2020. FINDINGS: Scattered nodular densities are now seen in the right lower lobe. The largest nodule measures 8.6 mm and is seen in the lateral aspect of the right lower lobe as seen on axial image #11. Coronary artery calcification. Normal liver. Tiny gallstones. Normal spleen. Normal pancreas. Normal bilateral adrenal glands. Moderate degree of bilateral hydronephrosis and hydroureter. A right-sided double-J stent catheter is seen. Nonobstructive intrarenal calculi are seen in the inferior aspect of the left kidney. Normal visualized stomach. Normal small intestine. There are multiple colonic diverticula consistent with diverticulosis. The appendix is visualized and appears normal. There is diffuse atherosclerotic calcification of the abdominal aorta and its major visceral branches, without a demonstrated aneurysm. Normal inferior vena cava. There is retroperitoneal lymphadenopathy with enlarged nodes greater than 10-15mm in the short axis. There has been a mild degree of improvement as compared to prior study. The patient is status post cystectomy. An ileostomy is seen in the anterior right abdominal wall. The right ureteral double-J stent catheter is seen within. The patient is status post prostatectomy. Normal abdominal wall. There are diffuse degenerative changes of the visualized lumbar spine. Stable loss of height of the superior endplate of the L3 vertebrae. CT/Abdomen/Pelvis without Cont IMPRESSION: Interval appearance of nodular densities in the right lower lobe as described. Findings suggestive of tiny gallstones. Stable bilateral hydronephrosis with a double-J stent catheter in the right ureter. Persistent retroperitoneal lymphadenopathy although there has been improvement as compared to prior study. Electronically Signed: Franky Perla MD at 10:58 EST , Service support ,
--- NOTE | 2020-09-09 08:22 | CT_ITS ---
STUDY: CT CHEST WITHOUT CONTRAST REASON FOR EXAM: Male, 75 years old. BLADDER CANCER TREATMENT ASSESSMENT, CURRENTLY ON CHEMO RADIATION DOSAGE (If Supplied By Facility): CTDIvol = ( 9.98 ) mGy, DLP = ( 378.86 ) mGycm TECHNIQUE: Transaxial imaging was performed without the administration of intravenous contrast material. Multiplanar coronal and sagittal images were reformatted. Individualized dose optimization techniques were used for this CT. COMPARISON: Comparison is made with prior examination dated 07/06/2020. FINDINGS: Stable emphysematous changes. At this time, there are scattered nodular densities in the right lower lobe. These are new as compared to prior study. The largest nodule measures 1.2 cm. There is no demonstrated pleural abnormality. Sternal cerclage wires and vascular clips are present from a prior sternotomy and coronary artery bypass graft procedure (CABG). There are calcifications of the coronary arteries. Normal mediastinum. Normal hilar regions. Normal unenhanced pulmonary arteries. There is atherosclerotic calcification of the aortic arch with tortuosity and elongation of the aortic arch and descending thoracic aorta. There are multi-level degenerative changes of the thoracic spine. Bilateral hydronephrosis. CT/Chest without Contrast IMPRESSION: Nodular densities are seen in the right lower lobe as described. Correlation with a PET scan is recommended. Electronically Signed: Franky Perla MD at 11:25 EST , Service support ,
== END ==
PROVIDERS: Referring Provider Internal Medicine Hematology & Oncology; Visit Provider Internal Medicine Hematology & Oncology
DX: C61 Malignant neoplasm of prostate (principal); C67.9 Malignant neoplasm of bladder, unspecified; C77.2 Secondary and unspecified malignant neoplasm of intra-abdominal lymph nodes
CPT/HCPCS: 71250; 74176

== ENCOUNTER 2020-09-11 14:06 | Day surgery (SDC) | payer MEDICARE, SELFPAY ==
[2020-08-31 09:36] VITALS: BMI 25.0
[2020-09-01 14:59] VITALS: BMI 25.0
--- NOTE | 2020-09-11 08:03 | PCM.HP.STD ---
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 Past Medical History Past Medical History (Chronic Problems): Chronic Problems (Last Reviewed 08/31/20 @ 09:33 by Roxana Pryor) Anemia (Chronic) Hydronephrosis, bilateral (Chronic) Multiple stenting Bladder cancer (Chronic) Prostate cancer (Chronic) Coronary artery disease (Chronic) Hypertension (Chronic) Dyslipidemia (Chronic) CRF (chronic renal failure) (Chronic) Complication of Ileal conduit (Chronic) Medical History: Medical History (Last Reviewed 09/11/20 @ 08:[address] 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 HTN (hypertension) I10 Allergies cephalexin [From Keflex] Adverse Reaction (Severe, Verified 09/04/20 08:47) Diarrhea Home Medications: Ambulatory Orders Medication Instructions Recorded Metoprolol Tartrate [Lopressor 12.5 mg PO QHS 06/27/13 (beta david)] Timolol 0.5% [Timoptic] 1 drp LEFT EYE DAILY 10/15/14 Acetaminophen [Tylenol] 500 mg PO Q4H PRN PRN #20 tab 02/20/19 Polyethylene Glycol 3350 [Miralax] 17 gm PO DAILY 05/09/19 latanoprost 0.005 % eye drops 1 drp OPHTHALMIC QHS 09/02/19 Cholecalciferol (Vitamin D3) 2,000 unit PO DAILY 12/31/19 [Vitamin D3] Aspirin [Adult Low Dose Aspirin EC] 81 mg PO DAILY 06/29/20 Lidocaine/Prilocaine 1 applicatio TP DAILY PRN PRN 30 07/01/20 [Lidocaine-Prilocaine Cream] Days #1 tube Ondansetron [Ondansetron Odt] 8 mg PO Q8H PRN PRN 10 Days #30 11/11/20 tab.rapdis Surgical History: Surgical History (Last Reviewed 08/31/20 @ 09:33 by Roxana Pryor) History of colonoscopy Z98.890 History of coronary artery bypass graft x 2 Z95.1 History of cystoscopy Z98.890 History of heart artery stent Z95.5 History of transurethral resection of prostate Z98.890, Z90.79 Surgical History: no surgical history Smoking Status: Current every day smoker Tobacco Use: Cigarettes Review of Systems Constitutional: Denies: Chills, Fever, Weight Change HEENT: Denies: Head Aches, Sinus Congestion, Sinus Drainage Cardiovascular: Denies: Chest Pain, Palpitations Respiratory: Denies: Cough, Shortness of breath at rest, Sputum production Gastrointestinal: Denies: Abdominal Pain, Nausea, Vomiting Genitourinary: Denies: Dysuria Musculoskeletal: Denies: Joint Pain, Joint Tenderness Skin: Denies: Rash, Wounds Neurological: Denies: Numbness, Tingling, Focal weakness Psychiatric: Denies: Anxiety, Depression, Homicidal Ideations, Suicidal Ideations Hematologic/ Lymphatic: Denies: Easy Bruising, Easy Bleeding VTE Information - Inpt Only VTE Present on Admission: No - Physical Exam Vitals/I&O's: Body Mass Index (BMI) 25.0 General: Alert, Oriented x3, Cooperative HEENT: Atraumatic, PERRLA, EOMI, Normocephalic Neck: Supple, No JVD, Negative Carotid Bruits Lungs: Clear to auscultation, Normal air movement Cardiovascular: Regular rate, No murmurs Abdomen: Bowel Sounds Present, Soft, Non Tender Extremities: No edema, Capillary Refill Less than 3 Seconds Skin: No rashes, No breakdown Musculoskeletal: No Tenderness to Palpation of Joints or Extremities Neurological: Cranial nerves II-XII grossly intact Psych/Mental Status: Normal Affect, Appropriate Microbiology Past 72 Hours 09/10/20 11:17 Interface Orders SARS-CoV-2 Antigen (Rapid) - Final Current Medications Cefazolin Sodium 2 gm/ Sodium (Chloride) 110 mls @ 150 mls/hr IV PREOP ONE Stop: 09/11/20 14:38 Assessment/Plan All Active Problems (Last Reviewed 08/31/20 @ 09:33 by Roxana Pryor) CINV (chemotherapy-induced nausea and vomiting) (Acute) Thrombocytopenia (Acute) Chemotherapy management, encounter for (Acute) Encounter for education (Acute) Metastatic cancer to intra-abdominal lymph nodes (Acute) Plan to proceed with a stent change via the ileal conduit which is a complicated procedure understands is possible and may not be able to change a stent.
[2020-09-11 14:37] VITALS: BP 127/63; PULSE 64; RESP 16; TEMP 36.5; O2SAT 100; BMI 25.4
[2020-09-11] MEDS: Lactated Ringers 1,000 ML 100 ML IV (15:22)
[2020-09-11] MEDS: Cefazolin 2 GM in 0.9% Normal Saline 100 ML IV (16:13)
--- NOTE | 2020-09-11 16:15 | DCINST_ITS ---
Discharge Diet: Light diet - advance as tolerated Discharge Activity: Return to Normal Activity Allergies/Adverse Reactions: Allergies cephalexin [From Keflex] Adverse Reaction (Severe, Verified 09/04/20 08:47) Diarrhea Medications to take at Discharge Metoprolol Tartrate [Lopressor (beta david)] 12.5 mg PO QHS 06/27/13 Timolol 0.5% [Timoptic] 1 drp LEFT EYE DAILY 10/15/14 Acetaminophen [Tylenol] 500 mg PO Q4H PRN PRN #20 tab 02/20/19 Polyethylene Glycol 3350 [Miralax] 17 gm PO DAILY 05/09/19 latanoprost 0.005 % eye drops 1 drp OPHTHALMIC QHS 09/02/19 Cholecalciferol (Vitamin D3) [Vitamin D3] 2,000 unit PO DAILY 12/31/19 Aspirin [Adult Low Dose Aspirin EC] 81 mg PO DAILY 06/29/20 Lidocaine/Prilocaine [Lidocaine-Prilocaine Cream] 1 applicatio TP DAILY PRN PRN 30 Days #1 tube 07/01/20 Ondansetron [Ondansetron Odt] 8 mg PO Q8H PRN PRN 10 Days #30 tab.rapdis 06/21 09/09 Primary Care Physician: Lana Solomon DO [Primary Care Provider] - Test Results: Test results from this visit will be discussed in further detail at your follow- up appointment, if applicable. Please Follow Up With: Nazario Hunt MD When: 4 weeks, please call to make an appointment.
--- NOTE | 2020-09-11 16:31 | PCM.OPRPT ---
Problem List (1) Complication of Ileal conduit Status: Chronic Report of Operation Date of Procedure: 09/11/20 Pre-Operative Diagnosis: Right ureteral stricture history of bladder cancer with an ileal conduit Post-Operative Diagnosis: The same Surgery/Procedure Performed:: Cystoscopy flexible cystoscopy via the ileal conduit removal of his stent on the right side advance a wire and change stent in the right side via the ileal conduit Description of Surgical Findings:: Patient was taken back to the operating room after smooth induction of general anesthesia he was placed in supine position, the conduit dressing was removed and then I draped the patient we went into the ileal conduit with the flexible cystoscope we used a flexible grasper to grab the end of the stent pulled out the end of the conduit. I then was able to wire the stent with a 0.[address] to the kidney on the right side and then over the wire I backloaded the wire up in the kidney and backloaded the stent off. And then over the wire place a new stent it was a 6 [place] by 20 cm stent with a small string on it and advanced the stent so that the stent was up the ureter up with the kidney and most of the stent was in the conduit pulled the wire and the stent coiled in the kidney and conduit appropriately. His appliance was replaced patient acetic was reversed and taken back to PACU in good condition with successful change will plan change again in the future Type of Anesthesia:: General Drains: stent right - Admit VTE Documentation VTE Present on Admission: No
[2020-09-11 16:39] VITALS: BP 105/55; BP 127/63; PULSE 68; RESP 18; TEMP 37.3; O2SAT 99
[2020-09-11 16:45] VITALS: BP 106/58; BP 127/63; PULSE 67; RESP 16; O2SAT 95
[2020-09-11 17:00] VITALS: BP 126/63; BP 127/63; PULSE 62; RESP 18; O2SAT 95
[2020-09-11 17:16] VITALS: BP 108/62; BP 127/63; PULSE 67; RESP 16; TEMP 37.6; O2SAT 98
[2020-09-11 17:50] VITALS: BP 116/57; BP 127/63; PULSE 73; RESP 16; TEMP 37.3; O2SAT 100
== END 2020-09-11 18:01 | disposition home or self-care (01) ==
LOC: SDC 14:06 → AC 14:13
PROVIDERS: Referring Provider Urology; Visit Provider Urology
PROC: (CPT 50688; principal; 2020-09-11 15:55)
DX: N13.1 Hydronephrosis with ureteral stricture, not elsewhere classified (principal); Z20.822 Contact with and (suspected) exposure to COVID-19; I25.10 Atherosclerotic heart disease of native coronary artery without angina pectoris; I11.9 Hypertensive heart disease without heart failure; E78.5 Hyperlipidemia, unspecified; G47.30 Sleep apnea, unspecified; F17.210 Nicotine dependence, cigarettes, uncomplicated; Z79.82 Long term (current) use of aspirin; Z79.899 Other long term (current) drug therapy; I25.2 Old myocardial infarction; Z85.51 Personal history of malignant neoplasm of bladder; Z85.46 Personal history of malignant neoplasm of prostate; Z95.1 Presence of aortocoronary bypass graft; Z95.5 Presence of coronary angioplasty implant and graft
CPT/HCPCS: 00860; 50688; 76000; 87426; C9803; J7120; A4216; C1769; J2405

== ENCOUNTER → 2020-11-30 07:15 | Outpatient (CLI) | payer MEDICARE, SELFPAY ==
[2020-11-23 09:32] VITALS: BMI 25.9
[2020-11-24 13:45] VITALS: BMI 25.9
--- NOTE | 2020-11-30 07:17 | CT_ITS ---
EXAM: CT CHEST, ABDOMEN AND PELVIS WITHOUT INTRAVENOUS CONTRAST CLINICAL INDICATION: U.B. AND PROSTATE CANCER RESPONSE TO TREATMENT TECHNIQUE: Helically acquired images were obtained of the chest, abdomen and pelvis without intravenous contrast. This CT exam was performed using one or more of the following dose reduction techniques: automated exposure control, adjustment of the mA and/or kV according to patient size, and/or use of iterative reconstruction technique. This report was created using [employer] report generation technology. COMPARISON: 09/09/[address], 09/29/2020 PET scan FINDINGS: CHEST: LUNGS AND PLEURAL SPACES: Bronchovascular micronodules and reticulation in the right lower lobe decreased since prior study suggesting resolving pneumonitis/bronchiolitis. No pleural effusion or thickening. HEART: Sternal wires and mediastinal surgical clips compatible with prior CABG. Heart size is normal. No pericardial effusion. MEDIASTINUM: Calcified mediastinal lymph nodes. Esophagus is unremarkable. No hiatal hernia. THYROID: Unremarkable. No thyroid lesions. ABDOMEN: LIVER: Unremarkable. Homogeneous. GALLBLADDER AND BILE DUCTS: Unremarkable. No calcified gallstones. No gallbladder distention or wall edema. No intra- or extrahepatic biliary ductal dilation. PANCREAS: Unremarkable. No focal cystic mass. SPLEEN: Unremarkable. Normal size without focal cystic or solid mass. ADRENALS: Unremarkable. No nodules. KIDNEYS AND URETERS: Bilateral hydronephrosis overall similar since the prior study. Right ureteral stent is stable. Status post cystectomy with ureteral diversion/ileostomy. STOMACH AND BOWEL: Similar peristomal hernia containing small bowel in the right lower abdomen without obstruction or bowel wall thickening. Diverticulosis of the colon without evidence of diverticulitis. PELVIS: APPENDIX: No evidence of acute appendicitis. BLADDER: See above. REPRODUCTIVE: Prostate is surgically absent. CHEST, ABDOMEN and PELVIS: INTRAPERITONEAL SPACE: Unremarkable. No ascites or other fluid collection. No free air. BONES/JOINTS: Degenerative changes of the thoracic and lumbar spine. No lytic or sclerotic bone lesions. SOFT TISSUES: See above. VASCULATURE: Atherosclerosis of the abdominal aorta and iliac arteries. Aorta is non-dilated. LYMPH NODES: Retroperitoneal adenopathy overall stable. For instance, left periaortic lymph node measures 1.1 x 1.3 cm on image 55 of series 3. TUBES, LINES AND DEVICES: Right chest port stable. CT/CT Chest, Abd, Pelvis WO Cont IMPRESSION: 1. Bronchovascular micronodules and reticulation in the right lower lobe decreased since prior study suggesting resolving pneumonitis/bronchiolitis. No new pulmonary nodule. 2. Stable retroperitoneal adenopathy. Stable bilateral hydronephrosis with ureteral diversion/cystectomy/prostatectomy. Electronically Signed: Alexandr Moody MD ([facility]) at 9:43 EDT , Service support ,
== END ==
PROVIDERS: Referring Provider Internal Medicine Hematology & Oncology; Visit Provider Internal Medicine Hematology & Oncology
DX: C67.9 Malignant neoplasm of bladder, unspecified (principal); C61 Malignant neoplasm of prostate; C77.2 Secondary and unspecified malignant neoplasm of intra-abdominal lymph nodes
CPT/HCPCS: 71250; 74176

== ENCOUNTER 2020-12-30 07:27 | Day surgery (SDC) | payer MEDICARE, SELFPAY ==
[2020-12-07 10:18] VITALS: BMI 26.2
[2020-12-21 09:30] VITALS: BMI 26.2
--- NOTE | 2020-12-23 15:20 | NURSING ---
Pt refusing COVID testing prior to scheduled surgery. Pt states he was tested in August 2020 for surgery and this resulted in painful nasal swelling lasting several days and required antibiotic treatment.
[2020-12-29 13:51] LABS: Probe Check PASS; Specimen Processing Control PASS
[2020-12-30 08:10] VITALS: BP 132/71; PULSE 53; RESP 16; TEMP 36.6; O2SAT 100; BMI 26.2
[2020-12-30] MEDS: Lactated Ringers 1,000 ML 100 ML IV (08:17)
[2020-12-30] MEDS: Ciprofloxacin 400 MG/200 ML BAG 200 MG IV (09:36)
--- NOTE | 2020-12-30 09:48 | HP.PCM_ITS ---
HPI - General General Date of Admission: 09/11/20 HPI Narrative RAMY BALL, is a 75 M who presents to change his right ureteral stent he has a history of a stricture in the proximal right right ureter has history of bladder cancer with an ileal conduit. [facility] Medical History (Updated 12/30/20 @ 09:[address] 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 HTN (hypertension) Loose, teeth Myocardial infarction [facility] Sleep apnea Sleep apnea Home Medications metoprolol tartrate 12.5 mg PO QHS 06/27/13 [History Last Taken 06/21/20] timolol maleate 1 drp LEFT EYE DAILY 10/15/14 [History Last Taken 06/21/20] acetaminophen 500 mg PO Q4H PRN PRN #20 tab 02/20/19 [Rx Last Taken 06/21/20] polyethylene glycol 3350 17 g PO DAILY 05/09/19 [History Last Taken 06/21/20] latanoprost 0.005 % eye drops 1 drp OPHTHALMIC BID 09/02/19 [History Last Taken 06/21/20] cholecalciferol (vitamin D3) 2,000 unit PO DAILY 12/31/19 [History Last Taken 06/21/20] aspirin 81 mg PO DAILY 06/29/20 [History Last Taken 07/03/20] lidocaine-prilocaine 1 applicatio TP DAILY PRN PRN 30 Days #1 tube 07/01/20 [Rx Last Taken Unknown] ondansetron 8 mg PO Q8H PRN PRN 10 Days #30 tab.rapdis 07/01/20 [Rx Last Taken Unknown] simvastatin 40 mg PO QHS 10/01/20 [History Last Taken Unknown] ciprofloxacin HCl [Cipro] 500 mg PO BID #6 tab 12/30/20 [Rx Last Taken Unknown] Allergy/AdvReac Type Severity Reaction Status Date / Time cephalexin [From Keflex] AdvReac Severe Diarrhea Verified 12/23/20 15:04 Family History Father Heart disease Mother Hypertension Surgical History (Updated 12/23/20 @ 15:12 by Renay Ward) History of colonoscopy History of coronary artery bypass graft x 2 History of cystoscopy History of heart artery stent History of transurethral resection of prostate Hx of cystoscopy Social History (Updated 12/21/20 @ 09:43 by Marilia Oliver) household members: spouse housing: house Smoking Status: Current every day smoker Tobacco: How many years used: 58 Electronic Cigarette Use: not used alcohol intake: never substance use type: does not use well-balanced diet: daily or most days caffeine: Yes Type: coffee Number of servings: 3 eating out: rarely or never during the past year weight has: remained stable what type of physical activity do you participate in: walking and bicycling frequency: 1-2 times per week duration: 15-30 minutes/day christine/buddhism: Religious seatbelt use: always do you feel safe at home: Yes Vital Signs Vital Signs Vital Signs: 12/30/20 08:10 Temperature 97.9 F Temperature Source Temporal Pulse Rate 53 L Respiratory Rate 16 Respiratory Pattern Normal Blood Pressure 132/71 H Blood Pressure Mean 91 Blood Pressure Source Monitor Blood Pressure Position Semi-Fowlers Blood Pressure Location Right Arm Pulse Ox 100 Oxygen Delivery Method Room Air Physical Exam Const alert and oriented x3 General Appearance: cooperative HEENT normocephalic, head/scalp atraumatic, EAC's normal and TM's normal bilaterally Eyes PERRL and EOMs intact bilaterally Pupil: sluggish Neck no lymphadenopathy, supple and no JVD General: trachea midline Lymph Lymphatic: no lymphadenopathy noted, lymphedema and lymphadenopathy Resp normal respiratory effort, normal air movement and clear to auscultation bilaterally Cardio regular rate, regular rhythm and peripheral pulses 2+ throughout GI soft to palpation, non-tender and non-distended Extremity normal capillary refill and no clubbing, cyanosis or edema General Extremity: no tenderness to palpation of joints or extremities Skin no rashes or lesions noted General Skin Exam: turgor normal Lesions: no lesions Rashes: no rashes Neuro CN's II-XII intact bilaterally Speech: speech normal Motor Exam: strength 5/5 throughout; Negative for general weakness Psych thought process normal, cooperative and affect normal Appearance: appropriate Lab / Micro Data Labs: Laboratory Results - last 24 hr 12/29/20 08:05 COVID-19 ([facility]ANNESA) Negative Assessment & Plan Assessment/Plan (1) Ureteral stricture: PLAN: Plan to proceed with cystoscopy via the ileal conduit and change of right stent.
--- NOTE | 2020-12-30 09:49 | PCM.DC ---
Discharge Instructions Diet Discharge Diet: No restrictions Activity Discharge Activity: May not drive while taking narcotic pain medications. (for 3 days.) May shower in (days): 1 Dressing / Incision Call your doctor if your incision/area has: Continuous Slow Oozing, Increased Pain/ Swelling, Increased Redness and Foul Smelling Discharge Call your doctor if you observe: Fever of 101 or Higher, Numbness or Tingling, Shortness of breath, Dizziness, Calf discomfort and Uncontrolled pain Cleanse incision/area with: Keep Dressing Clean & Dry Follow Up Care Please Follow Up With: Nazario Hunt MD When: Call [phone] for an appointment Test Results: Test results from this visit will be discussed in further detail at your follow-up appointment, if applicable. Discharge Plan Admission Primary Reason for Your Visit: KIDNEY STONE Attending Provider: Nazario Hunt Primary Care Provider: Lana Solomon Discharge Orders/Prescriptions Prescriptions: New ciprofloxacin HCl [Cipro] 500 mg tablet 500 mg PO BID Qty: 6 RF: 0 Continued latanoprost 0.005 % drops 1 drp OPHTHALMIC BID RF: 0 metoprolol tartrate 25 MG tablet 12.5 mg PO QHS RF: 0 timolol maleate 1 DROP drops 1 drp LEFT EYE DAILY RF: 0 acetaminophen 500 MG tablet 500 mg PO Q4H PRN PRN (Reason: Pain) Qty: 20 RF: 0 polyethylene glycol 3350 17 GM packet 17 g PO DAILY RF: 0 cholecalciferol (vitamin D3) 2,000 UNIT capsule 2,000 unit PO DAILY RF: 0 aspirin 81 MG tablet,delayed release (DR/EC) 81 mg PO DAILY RF: 0 ondansetron 8 MG tablet,disintegrating 8 mg PO Q8H PRN PRN (Reason: Nausea) 10 Days Qty: 30 RF: 3 lidocaine-prilocaine 30 GM cream 1 applicatio TP DAILY PRN PRN (Reason: Not Specified) 30 Days Qty: 1 RF: 2 simvastatin 40 MG tablet 40 mg PO QHS RF: 0 Referrals / Follow Up: Nazario Hunt MD [STAFF PHYSICIAN] - Lana Solomon DO [Primary Care Provider] - Disposition Discharge Orders: Discharge Patient (Routine); Ordered 12/30/20 Ordered By: Dr. Nazario Hunt
[2020-12-30 09:50] VITALS: BP 132/71; BP 151/76; PULSE 53; RESP 16; TEMP 36.2; O2SAT 100
--- NOTE | 2020-12-30 09:50 | OP.PCM_ITS ---
Problems Associated Problem List Diagnoses (1) Ureteral stricture: Report of Operation Date of Procedure: 12/30/20 Pre-Operative Diagnosis: Right ureteral stricture chronic, history of bladder cancer Post-Operative Diagnosis: Same Surgery/Procedure Performed:: Flexible cystoscopy via ileal conduit, retrograde pyelogram, stent change via the ileal conduit in a retrograde fashion. Description of Surgical Findings:: This is a 75-year-old male with a history of bladder cancer he had an ileal conduit and removal of his bladder cancer several years ago he had recurrence of cancer which is been treated with chemotherapy with good response in shrinkage of tumor he still has obstruction of the right kidney with a stricture from a chronic stone that was in the right proximal ureter. The strictures been balloon dilated but with in order to maintain function of the kidney we have been leaving the stent and to keep the kidney drained in today working to proceed with a stent change. The stent change will be retrograde to the ileal conduit. Patient was taken back to the operating room after smooth induction of general anesthesia he was placed supine on the table the attachment of the appliance and the chondrocyte was removed I then went into the ileal conduit with a flexible cystoscope and the stent was grabbed with a flexible grasper only had to go about half a centimeter into the conduit to grab the stent and pulled it out and through the stent advanced a wire all the way up to the kidney in a retrograde fashion following under fluoroscopy I then over the wire advanced a Pollick catheter 5 Argentine open-ended catheter performed a retrograde pyelogram to see contrast collecting in the right kidney and the renal pelvis. I then advanced a wire through the 5 Argentine open-ended catheter the wire coiled in the kidney and then over the wire I advanced a stent it was a 6 Argentine by 28 cm stent once a stent was in good position I pulled the wire the stent coiled in the kidney within the conduit, I did leave a string of the stent for extraction in the future in case we have any difficulties but the string was cut short and then the patient's anesthetic was reversed he was taken back to the PACU in good condition and I will see him in the office for checkup in a few weeks. Type of Anesthesia: General Drains: Stent 6 Argentine by 28 cm Admit VTE Documentation VTE Present on Admission: No VTE Mechan Device Prophylaxis: SCD's
[2020-12-30 10:00] VITALS: BP 132/71; BP 154/67; PULSE 52; RESP 16; O2SAT 100
[2020-12-30 10:15] VITALS: BP 132/71; BP 140/82; PULSE 50; RESP 16; TEMP 36.7; O2SAT 100
[2020-12-30 10:35] VITALS: BP 132/71
== END 2020-12-30 10:50 ==
LOC: SDC 07:28 → AC 07:29
PROVIDERS: Anesthesiology; Referring Provider Urology; Visit Provider Urology
PROC: (CPT 50688; principal; 2020-12-30 09:15)
DX: N13.5 Crossing vessel and stricture of ureter without hydronephrosis (principal); N18.30 Chronic kidney disease, stage 3 unspecified; Z20.822 Contact with and (suspected) exposure to COVID-19; N40.1 Benign prostatic hyperplasia with lower urinary tract symptoms; R33.8 Other retention of urine; R35.0 Frequency of micturition; R35.1 Nocturia; R39.12 Poor urinary stream; I25.10 Atherosclerotic heart disease of native coronary artery without angina pectoris; I10 Essential (primary) hypertension; E78.5 Hyperlipidemia, unspecified; Z79.82 Long term (current) use of aspirin; Z79.899 Other long term (current) drug therapy; Z87.891 Personal history of nicotine dependence; Z85.51 Personal history of malignant neoplasm of bladder; Z92.21 Personal history of antineoplastic chemotherapy
CPT/HCPCS: 00860; 50688; 76000; 87635; C9803; J7120; C1769; J0744; U0002

== ENCOUNTER → 2021-04-06 07:44 | Outpatient (CLI) | payer MEDICARE, SELFPAY ==
[2021-03-29 09:58] VITALS: BMI 25.5
--- NOTE | 2021-04-06 07:51 | CT_ITS ---
STUDY: CT CHEST, ABDOMEN T PELVIS WITHOUT CONTRAST REASON FOR EXAM: Male, 75 years old. ASSESS RESPONSE TO TREATMENT. The patient has a history of prostate cancer and bladder cancer with chemotherapy. RADIATION DOSAGE (If Supplied By Facility): CTDIvol = ( 7.22 ) mGy, DLP = ( 580.01 ) mGycm TECHNIQUE: Transaxial imaging was performed without the administration of intravenous contrast material. Individualized dose optimization techniques were used for this CT. COMPARISON: Comparison is made with prior study dated 11/30/2020 and 09/09/2020. FINDINGS: CHEST A right-sided portacatheter is seen with the tip in the superior vena cava. The lungs are normal. There is no demonstrated pleural abnormality. Sternal cerclage wires and vascular clips are present from a prior sternotomy and coronary artery bypass graft procedure (CABG). There are calcifications of the coronary arteries. There are multiple small lymph nodes within the mediastinum, which are normal in size and morphology most compatible with reactive lymph hyperplasia. Normal hilar regions. Normal unenhanced pulmonary arteries. There is atherosclerotic calcification of the aortic arch with tortuosity and elongation of the aortic arch and descending thoracic aorta. There are multi-level degenerative changes of the thoracic spine. ABDOMEN Normal liver. Normal gallbladder and extrahepatic biliary system. Normal spleen. Normal pancreas. Normal bilateral adrenal glands. Moderate degree of bilateral hydronephrosis. A right-sided double-J stent catheter is seen. The distal tip is seen within the ileal loop. Punctate calcification in the lower pole calyx of the left kidney. Mild atrophy of the right kidney. Normal visualized stomach. Normal small intestine. Normal colon. The appendix is visualized and appears normal. There is diffuse atherosclerotic calcification of the abdominal aorta and its major visceral branches, without a demonstrated aneurysm. Normal inferior vena cava. There is retroperitoneal lymphadenopathy with enlarged nodes greater than 10-15mm in the short axis. These are slightly larger as compared to prior study. PELVIS The patient is status post cystectomy. An ileal loop is seen in the right lower quadrant. There is evidence of nondilated small bowel herniation into the ileostomy site in the right lower quadrant. Normal visualized small intestine. Normal visualized colon. There is no pelvic fluid. There is no pelvic lymphadenopathy or mass lesion. There is diffuse atherosclerotic calcification of the pelvic arteries. There are diffuse degenerative changes of the visualized lumbar spine. Loss of height of the superior endplate of the L3 vertebrae. CT/CT Chest, Abd, Pelvis WO Cont IMPRESSION: Slight progression of the retroperitoneal lymph nodes. Electronically Signed: Franky Perla MD at 10:17 EDT , Service support ,
== END ==
PROVIDERS: Referring Provider Internal Medicine Hematology & Oncology; Visit Provider Internal Medicine Hematology & Oncology
DX: C61 Malignant neoplasm of prostate (principal); C67.9 Malignant neoplasm of bladder, unspecified; C77.2 Secondary and unspecified malignant neoplasm of intra-abdominal lymph nodes
CPT/HCPCS: 71250; 74176

== ENCOUNTER 2021-04-21 11:24 | Day surgery (SDC) | payer MEDICARE, SELFPAY ==
[2021-03-29 09:58] VITALS: BMI 25.5
[2021-04-21] VITALS (7 sets, daily range): BP systolic 119–159; BP diastolic 71–78; PULSE 49–55; RESP 16–18; TEMP 36.1–36.4; O2SAT 98–100; BMI 25.6
[2021-04-21] MEDS: Lactated Ringers 1,000 ML 100 ML IV (11:55)
[2021-04-21] MEDS: Cefazolin 2 GM in 0.9% Normal Saline 100 ML IV (14:42)
--- NOTE | 2021-04-21 14:51 | PCM.DC ---
Discharge Instructions Diet Discharge Diet: No restrictions Dressing / Incision Call your doctor if your incision/area has: Continuous Slow Oozing, Increased Pain/ Swelling, Increased Redness and Foul Smelling Discharge Call your doctor if you observe: Fever of 101 or Higher, Numbness or Tingling, Shortness of breath, Dizziness, Calf discomfort and Uncontrolled pain Follow Up Care Please Follow Up With: Nazario Hunt MD Test Results: Test results from this visit will be discussed in further detail at your follow-up appointment, if applicable. Discharge Plan Admission Primary Reason for Your Visit: stent change Attending Provider: Nazario Hunt Primary Care Provider: Lana Solomon Discharge Orders/Prescriptions Prescriptions: New ciprofloxacin HCl [Cipro] 500 mg tablet 500 mg PO BID Qty: 10 RF: 0 Continued latanoprost 0.005 % drops 1 drp OPHTHALMIC BID RF: 0 metoprolol tartrate 25 MG tablet 12.5 mg PO QHS RF: 0 timolol maleate 1 DROP drops 1 drp LEFT EYE DAILY RF: 0 acetaminophen 500 MG tablet 500 mg PO Q4H PRN PRN (Reason: Pain) Qty: 20 RF: 0 polyethylene glycol 3350 17 GM packet 17 g PO DAILY RF: 0 cholecalciferol (vitamin D3) 2,000 UNIT capsule 2,000 unit PO DAILY RF: 0 aspirin 81 MG tablet,delayed release (DR/EC) 81 mg PO DAILY RF: 0 ondansetron 8 MG tablet,disintegrating 8 mg PO Q8H PRN PRN (Reason: Nausea) 10 Days Qty: 30 RF: 3 lidocaine-prilocaine 30 GM cream 1 applicatio TP DAILY PRN PRN (Reason: Not Specified) 30 Days Qty: 1 RF: 2 simvastatin 40 MG tablet 40 mg PO QHS RF: 0 Other Ambulatory Orders: Miscellaneous Order (Routine) Timeframe: [id number] Location: None Selected Ordered By: Dr. Cal Branch Referrals / Follow Up: Nazario Hunt MD [STAFF PHYSICIAN] - Lana Solomon DO [Primary Care Provider] - Disposition Disposition (needs filled in before D/C Order can be placed): Home, Self Care
--- NOTE | 2021-04-21 15:04 | OP.PCM_ITS ---
Report of Operation Date of Procedure: 04/21/21 Pre-Operative Diagnosis: Chronic right kidney obstruction history of bladder ca ncer with ileal conduit Post-Operative Diagnosis: Same Surgery/Procedure Performed:: Cystoscopy and stent change via the ileal conduit retrograde pyelogram and placement of a new stent through the conduit to the right kidney. Description of Surgical Findings:: Patient was taken back to the operating room after smooth induction of general anesthesia he was placed supine on the operating room table, the appliance over the ostomy site was removed using a flexible cystoscope the end of this stent was pulled back and then I pulled the stent right out of the ileal conduit I cut out the end of the stent because it was encrusted and then to the open and I advanced a wire all the way up through the ureter through the anastomosis of the ileal conduit to the ureter and up the right kidney. Once the wire coiled in the kidney through the conduit and out the opening of the ileal conduit I then advanced a 5 Cameroonian open-ended catheter over the Glidewire once the 5 Cameroonian open-ended catheter was in good position then I performed a retrograde pyelogram we can see contrast going up to the kidney can see hydronephrosis in the right kidney. And then once this was in place then I flushed the 5 Cameroonian open-ended ureteral catheter with sterile saline and then advanced a wire through this and then exchanged over the wire and then advance a new stent it was a 6 Cameroonian 28 cm stent once a stent was up in the kidney under fluoroscopic guidance I pulled the wire and the stent coiled in the kidney and then coiled in the distal part of the ileal conduit. I did leave a small string of the stent for easy extraction of the neck stent change. Appliance was placed back on the ileoconduit stent change was accessed without any problems patient acetic was reversed taken back to PACU in good condition. Surgeon: phong Type of Anesthesia: General Drains: new right stent Admit VTE Documentation VTE Present on Admission: No VTE Mechan Device Prophylaxis: SCD's
== END 2021-04-21 16:40 | disposition home or self-care (01) ==
LOC: SDC 11:25 → AC 11:25
PROVIDERS: Referring Provider Urology; Visit Provider Urology
PROC: (CPT 50688; principal; 2021-04-21 13:15)
DX: Z46.6 Encounter for fitting and adjustment of urinary device (principal); N13.1 Hydronephrosis with ureteral stricture, not elsewhere classified; Z85.51 Personal history of malignant neoplasm of bladder; H26.9 Unspecified cataract; I25.2 Old myocardial infarction; I12.9 Hypertensive chronic kidney disease with stage 1 through stage 4 chronic kidney disease, or unspecified chronic kidney disease; N18.30 Chronic kidney disease, stage 3 unspecified; G47.30 Sleep apnea, unspecified; Z95.1 Presence of aortocoronary bypass graft; Z79.82 Long term (current) use of aspirin; Z79.899 Other long term (current) drug therapy; F17.200 Nicotine dependence, unspecified, uncomplicated
CPT/HCPCS: 00860; 50688; 76000; C9803; J7120; A4216; C1769; J2405

== ENCOUNTER 2021-08-26 08:44 | Inpatient (IN) | payer MEDICARE, SELFPAY ==
[2021-08-26] VITALS (20 sets, daily range): BP systolic 86–179; BP diastolic 49–104; PULSE 62–128; RESP 12–26; TEMP 36.1–38.8; O2SAT 94–100; BMI 22.6; BMI 23.2
--- NOTE | 2021-08-26 08:58 | CT_ITS ---
STUDY: CT ABDOMEN AND PELVIS WITHOUT CONTRAST REASON FOR EXAM: Male, 76 years old. Bilateral flank pain. Patient has a history of bladder/prostate carcinoma with metastasis. RADIATION DOSAGE (If Supplied By Facility): CTDIvol = ( 6.32 ) mGy, DLP = ( 276.7 ) mGycm TECHNIQUE: Transaxial images were obtained from the dome of the diaphragm to the symphysis pubis without oral contrast, and without intravenous contrast. Sagittal and coronal images were reconstructed. Individualized dose optimization techniques were used for this CT. COMPARISON: Comparison is made with prior examination dated 06/29/2021. FINDINGS: The visualized lung bases are unremarkable. Coronary artery calcification. Normal liver. Mildly distended gallbladder. Normal spleen. Normal pancreas. Normal bilateral adrenal glands. There is moderate cortical atrophy of the right kidney, consistent with chronic medical renal disease. Mild degree of the right hydronephrosis. A double-J stent catheter is seen within the renal pelvis. The distal tip is seen within the ileostomy loop in the right lower quadrant. Marked degree of left hydronephrosis and left hydroureter. The ureter is dilated down to the level of the ileostomy in the right lower quadrant. There is evidence of left perinephric stranding. There is a 5 mm nonobstructive calculus in the lower pole calyx of the left kidney. A punctate calcification is seen adjacent. Normal visualized stomach. Ileostomy is seen in the right lower quadrant. There are multiple colonic diverticula consistent with diverticulosis. There is non-visualization of the appendix. There is diffuse atherosclerotic calcification of the abdominal aorta and its major visceral branches, without a demonstrated aneurysm. Normal inferior vena cava. The previously seen soft tissue density in the left para-aortic region has decreased in size. It presently measures 1.9 cm. The patient is status post cystectomy. There is evidence of a repair of a lower anterior abdominal wall hernia with a mesh. There are diffuse degenerative changes of the visualized lumbar spine. 20% loss of height of the superior endplate of the L3 vertebrae. CT/Abdomen/Pelvis without Cont IMPRESSION: Status post cystectomy with ileal loop in the right lower quadrant. Stable appearance of the right kidney and stable mild area of the right hydronephrosis. Double-J stent catheter is seen. Marked degree of left hydronephrosis and left hydroureter. This has progressed as compared to prior study. Interval decrease in size of the previously seen soft tissue density in the left para-aortic region. Electronically Signed: Franky Perla MD at 10:31 EST , Service support ,
--- NOTE | 2021-08-26 08:59 | EDS_ITS ---
HPI History of Present Illness Chief Complaint: Flank Pain Detail of Chief Complaint: Back pain and decreased urine output Informant: patient Narrative Narrative: Patient presents to the emergency department chief complaint of low back pain and decreased urine output since last night. Patient complains of nausea but no vomiting. Patient has a urostomy bag and has a ureteral stent sticking out of the ostomy site. Patient states that his urologist changes his stents about every 3 months and he is due. He has had little urine output since last night. He complains of nausea. He now complains of lower abdominal discomfort as well. Patient has history of bladder cancer with metastasis to lymph nodes. Last chemotherapy was August 16. He denies fevers. He has not been vaccinated against COVID. He denies cough. He denies chest pain. Prior similar symptoms: Yes PFSH PFSH Medical History Cancer Cardiac murmur Cardiology follow-up encounter Cataract Constipation CPAP (continuous positive airway pressure) dependence History of bladder carcinoma History of hyperlipidemia 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 HTN (hypertension) Hyperglycemia Loose, teeth Myocardial infarction PORT PLACEMENT Sleep apnea Sleep apnea Wears dentures Home Medications metoprolol tartrate 12.5 mg PO QHS 06/27/13 [History Last Taken 06/21/20] timolol maleate 1 drp LEFT EYE DAILY 10/15/14 [History Last Taken 06/21/20] acetaminophen 500 mg PO Q4H PRN PRN #20 tab 02/20/19 [Rx Last Taken 06/21/20] polyethylene glycol 3350 17 g PO DAILY 05/09/19 [History Last Taken 06/21/20] latanoprost 0.005 % eye drops 1 drp OPHTHALMIC BID 09/02/19 [History Last Taken 06/21/20] cholecalciferol (vitamin D3) 2,000 unit PO DAILY 12/31/19 [History Last Taken 06/21/20] aspirin 81 mg PO DAILY 06/29/20 [History Last Taken 07/03/20] lidocaine-prilocaine 1 applicatio TP DAILY PRN PRN 30 Days #1 tube 07/01/20 [Rx Last Taken Unknown] simvastatin 40 mg PO QHS 10/01/20 [History Last Taken Unknown] lidocaine-prilocaine 2.5 %-2.5 % topical cream 1 applic TOPICAL ONCE PRN 30 Days #30 g 07/26/21 [Rx Last Taken Unknown] ondansetron 8 mg disintegrating tablet 8 mg PO Q8H PRN PRN 10 Days #30 tab.ibrahimadis 07/26/21 [Rx Last Taken Unknown] Allergy/AdvReac Type Severity Reaction Status Date / Time cephalexin [From Keflex] AdvReac Severe Diarrhea Verified 08/26/21 08:47 Family History Father Heart disease Mother Hypertension Surgical History History of colonoscopy History of coronary artery bypass graft x 2 History of cystoscopy History of heart artery stent History of transurethral resection of prostate Hx of cystoscopy Social History household members: spouse housing: house Smoking Status: Current every day smoker tobacco type: cigarettes Tobacco: How many years used: 58 Electronic Cigarette Use: not used alcohol intake: never substance use type: does not use well-balanced diet: daily or most days caffeine: Yes Type: coffee Number of servings: 3 eating out: rarely or never during the past year weight has: remained stable what type of physical activity do you participate in: walking and bicycling frequency: 1-2 times per week duration: 15-30 minutes/day christine/restorationist: Bahai seatbelt use: always do you feel safe at home: Yes ROS ROS ED Constitutional Constitutional ED: Reports systems reviewed and no addt'l complaints, except as documented; Denies body ache(s), change in weight or chills Eyes Eyes: Denies acute decrease in peripheral vision, change in vision, double vision or loss of vision ENT ENT ED: Reports none; Denies ear pain, lip swelling, loss taste/smell, neck pain, otalgia or sore throat Cardiovascular Cardiovascular: Reports none; Denies abdominal pain, chest pain with activity, leg edema, lightheadedness, palpitations, rapid heart rate or syncope Respiratory/Chest Respiratory/Chest: Reports none; Denies change in mental status, dry cough, dyspnea, hemoptysis, shortness of breath at rest or shortness of breath with exertion Gastrointestinal Gastrointestinal: Reports none; Denies abdominal pain, change in stool character, diarrhea, hematemesis, hematochezia, melena, rectal bleeding or vomiting Genitourinary Genitourinary ED: Reports none and other Details: Decreased urine output ; Denies abdominal discomfort, anuria, dysuria, genital pain or polyuria Musculoskeletal Musculoskeletal: Reports none and back pain; Denies arthralgias, difficulty walking, extremity pain, muscle weakness or myalgias Integumentary Reports none; Denies abscess or rash Neurologic Neurologic: Reports none; Denies abnormal gait, confusion, focal weakness, frequent falls, headache(s), loss of vision, numbness, paresthesias, radicular pain, vertigo or weakness Psychiatric Psychiatric: Reports systems reviewed and no addt'l complaints, except as documented and none; Denies behavioral changes, confusion, difficulty concentrating, hallucinations, suicidal ideation, tactile hallucinations or visual hallucinations Endocrine Endocrinology: Denies none, cold intolerance, excessive sweating, fatigue or heat intolerance Hematologic/Lymphatic Hematologic/Lymphatic: Reports none; Denies anemia, easy bleeding or easy bruising Allergic/Immunologic Allergic/Immunologic ED: Denies as per HPI, none, lip swelling, mouth swelling, throat swelling, tongue swelling or hives EXAM Physical Exam Const Vital Signs: 08/26/21 08:45 08/26/21 09:44 08/26/21 10:17 Temperature 97.0 F L Temperature Source Temporal Pulse Rate 82 66 Respiratory Rate 14 18 18 Blood Pressure 136/81 H 137/75 H Blood Pressure Mean 99 95 Pulse Ox 100 98 99 Oxygen Delivery Method Room Air Room Air Room Air Positive well nourished and well developed General Appearance ED: well developed and NAD HEENT Reports TM's clear and moist mucous membranes normocephalic and atraumatic; Negative for trauma or tenderness Tympanic Membrane ED: Yes TM's clear Eyes PERRL and EOMs intact bilaterally General Eye ED: Negative for pale conjunctiva or scleral icterus Neck no lymphadenopathy, supple and no JVD General: Negative for tenderness Chest Wall inspection of chest normal and palpation of chest normal Chest: Negative for tenderness Resp normal respiratory effort and clear to auscultation bilaterally Effort and Inspection: Negative for respiratory distress or pain with movement Auscultation: Negative for rhonchi, wheezes or diminished lung sounds Cardio regular rate, regular rhythm, S1 normal heart sound, S2 normal heart sound and no murmurs Peripheral Pulses: pulses 2+ throughout GI normal to inspection, nondistended, normoactive bowel sounds, soft to palpation, non-distended and no masses GI Narrative: Mild diffuse tenderness to the abdomen. There are some guarding. There is no rebound, rigidity, or apparent signs. Urostomy bag has 500 cc of cloudy urine in it. Back/Spine no CVA tenderness and no thoracic nor lumbar tenderness Back/Spine Narrative: No tenderness on exam of the thoracic and lumbar spine. Patient has mild CVA tenderness bilaterally. Negative straight leg raises. Extremity normal to inspection General Extremety ED: Negative for edema General Extremity: Negative for edema Neuro oriented x3, CN's II-XII intact bilaterally, no sensory deficits noted and gait normal Sensorium / Orientation: awake, alert, oriented to person, oriented to place and oriented to time Motor Exam: strength 5/5 throughout and strength abnormal Psych mental status grossly normal Skin no rashes or lesions noted and no wounds MDM MDM MDM Narrative Medical decision making narrative: IV line established on arrival. Patient was medicated morphine and Zofran and he continued to complain of pain and therefore was given a milligram of Dilaudid IV. Work-up shows on CT that he is got worsening hydro of the left kidney and hydroureter. I discussed case with urology who is concerned about patient being obstructed and feels he may require nephrostomy tube to the left kidney. I was asked to have patient admitted to medicine and consult to himself and interventional radiology for nephrostomy tube. Lab Data Attestation: I reviewed the patient's lab results. Labs: Laboratory Results - last 24 hr 08/26/21 08/26/21 08/26/21 09:25 09:25 09:25 WBC 9.2 RBC 3.77 L Hgb 12.1 L Hct 37.0 L MCV 98.1 H MCH 32.1 H MCHC 32.7 RDW Std Deviation 53.8 H RDW Coeff of Jasson 15.4 H Plt Count 189 MPV 9.0 Immature Gran % (Auto) 0.700 Neut % (Auto) 81.1 H Lymph % (Auto) 7.6 L [place] % (Auto) 9.2 Eos % (Auto) 0.5 Baso % (Auto) 0.9 Absolute Neuts (auto) 7.5 Absolute Lymphs (auto) 0.70 L Nucleated RBC % 0 Sodium 140 Potassium 3.6 Chloride 111 H Carbon Dioxide 22.0 Anion Gap 7 BUN 40 H Creatinine 2.14 H Estim Creat Clear Calc 26.79 Est GFR (MDRD) Af Amer 39 L Est GFR (MDRD) Non-Af 32 L BUN/Creatinine Ratio 18.7 Glucose 98 Lactic Acid 1.1 Calcium 8.6 Radiography Diagnostic Testing: Clinical Impression(s) from Imaging Studies Abdomen/Pelvis CT 08/26/21 08:58 IMPRESSION: Status post cystectomy with ileal loop in the right lower quadrant. Stable appearance of the right kidney and stable mild area of the right hydronephrosis. Double-J stent catheter is seen. Marked degree of left hydronephrosis and left hydroureter. This has progressed as compared to prior study. Interval decrease in size of the previously seen soft tissue density in the left para-aortic region. Electronically Signed: Franky Perla MD at 10:31 EST , Service support , Discharge Plan Triage Chief Complaint: Flank Pain ED Provider: Arya Disla Dx/Rx/DC Orders Clinical Impression: Obstructed, uropathy, Abdominal pain Prescriptions: No Action latanoprost 0.005 % drops 1 drp OPHTHALMIC BID RF: 0 ondansetron 8 mg tablet,disintegrating 8 mg PO Q8H PRN PRN (Reason: Nausea) 10 Days Qty: 30 RF: 3 lidocaine-prilocaine 2.5-2.5 % cream 1 applic topical ONCE PRN (Reason: port access) 30 Days Qty: 30 RF: 2 metoprolol tartrate 25 MG tablet 12.5 mg PO QHS RF: 0 timolol maleate 1 DROP drops 1 drp LEFT EYE DAILY RF: 0 acetaminophen 500 MG tablet 500 mg PO Q4H PRN PRN (Reason: Pain) Qty: 20 RF: 0 polyethylene glycol 3350 17 GM packet 17 g PO DAILY RF: 0 cholecalciferol (vitamin D3) 2,000 UNIT capsule 2,000 unit PO DAILY RF: 0 aspirin 81 MG tablet,delayed release (DR/EC) 81 mg PO DAILY RF: 0 lidocaine-prilocaine 30 GM cream 1 applicatio TP DAILY PRN PRN (Reason: Not Specified) 30 Days Qty: 1 RF: 2 simvastatin 40 MG tablet 40 mg PO QHS RF: 0 Primary Care Provider: Lana Solomon Referrals: Lana Solomon, [Primary Care Provider] - Disposition Disposition: Acute Care Hospital [facility]
[2021-08-26] MEDS: Ondansetron 4 MG/2 ML Vial IV (09:28)
[2021-08-26] MEDS: Morphine 4 MG/ML Syringe IV (09:28)
[2021-08-26] MEDS: 0.9% Normal Saline 1,000 ML 150 ML IV ×2 (09:29→22:15)
[2021-08-26 09:39] LABS: Absolute Neutrophil Count 7.5 X10^3/uL (2.0-7.7); Basophil# 0.08 X10^3/uL; Basophil% 0.9 % (0-1); Eosinophil# 0.05 X10^3/uL; Eosinophils% 0.5 % (0-5); Hemoglobin 12.1 g/dL (13.0-16.5); Lymphocyte % 7.6 % (19-41); Mean Corp Hgb Conc 32.7 g/dL (32-36); Mean Corpuscular Hgb 32.1 pg (27.0-32.0); Mean Corpuscular Volume 98.1 fL (80-94); Monocyte# 0.84 X10^3/uL; Monocyte% 9.2 % (0-10); NRBC Flagged by Analyzer 0 % (0-5); Neutrophil # 7.45 X10^3/uL (2.7-7.7); Neutrophil % 81.1 % (47-70); Platelet Count 189 K/mm3 (150-450); RBC Distribution Width CV 15.4 % (11.6-14.6); RBC Distribution Width SD 53.8 fl (35.1-43.9); Red Blood Count 3.77 M/mm3 (4.6-6.2); White Blood Count 9.2 K/mm3 (4.4-11.0)
[2021-08-26 09:51] LABS: Anion Gap 7 (5-15); BUN 40 mg/dL (7-18); BUN/Creat Ratio 18.7 RATIO (10-20); Calcium,Total 8.6 mg/dL (8.5-10.1); Chloride 111 mmol/L (98-107); Creatinine, Serum 2.14 mg/dL (0.70-1.30); EST Glomerular Filtration Rate 32 mL/min (>60); Est Glom Filt Rate - Afr Amer 39 mL/min (>60); Estimated Creatinine Clearance 26.79 ml/min; Glucose 98 mg/dL (74-106); Potassium 3.6 mmol/L (3.5-5.1); Sodium Level 140 mmol/L (136-145)
[2021-08-26 09:56] LABS: Lactic Acid 1.1 mmol/L (0.4-1.9)
[2021-08-26] MEDS: HYDROmorphone 1 MG/ML Syringe IV ×2 (10:14→14:53)
--- NOTE | 2021-08-26 11:52 | NURSING ---
MED SURG YIFAN OBSTRUCTIVE UROPATHY, ABD PAIN
--- NOTE | 2021-08-26 11:58 | ED.RN ---
FLOOR NURSE TO CALL FOR ORDERS
--- NOTE | 2021-08-26 12:43 | CT_ITS ---
PROCEDURE: DIGITAL COMPUTERIZED TOMOGRAPHIC GUIDANCE DURING PERCUTANEOUS NEPHROSTOMY PROCEDURE. DATE OF EXAMINATION: 08/26/2021. INDICATION: Male, 76 years old. Left hydronephrosis. PHYSICIAN: Franky Perla M.D. CONSENT: The patient''s history and physical findings were reviewed. Prior to the procedure the percutaneous nephrostomy procedure as well as possible complications including infection and bleeding were described to the patient who then signed a consent. SEDATION: 1 mg of VERSED and 25 mcg of FENTANYL. Conscious sedation protocol was followed. Conscious sedation started at 1:38 PM and terminated at 1:56 PM. The patient was independently monitored by the department nurse. DLP : 493.54 CTDIvol : 9.49 Individualized dose hospitalization techniques were utilized. TECHNIQUE: A 8 Kiswahili percutaneous left nephrostomy catheter was inserted under CT guidance. 70 cc of purulent urine was aspirated. A loop of the pigtail catheter was formed within the left renal pelvis and locked in this position. There is dilatation of the upper collecting system and dilatation of the left ureter to the bladder. . The catheter was secured to the skin surface and covered with a sterile dressing. The catheter was attached to a drainage bag attached to the patient''s leg. CT/Nephrotube Placement CT IMPRESSION: 1. The percutaneous left nephrostomy catheter is in good position with the pigtail portion located in the left renal pelvis. 2. Conscious sedation protocol was followed. Electronically Signed: Franky Perla MD at 14:33 EST , Service support ,
--- NOTE | 2021-08-26 12:47 | HP.PCM_ITS ---
HPI - General HPI Narrative RAMY BALL, is a 76 M who presents with poor urine output from his ileostomy he does have a right stent in place up to his right kidney through the ileostomy in the right kidney on CAT scan looks okay the left kidney is fairly hydronephrotic with severe swelling and with his decreased urine output he is going to need a left nephrostomy tube I called radiology on admission and they are going to be able to place in the left nephrostomy tube within an hour or 2 of speaking to them today he is otherwise clinically stable he does have a increase in his creatinine which I think will resolve once we get his nephrostomy tube placed on the left side and he does have poor urine output he will be admitted for acute renal failure and left hydronephrosis history of bladder cancer in the past. [facility] Medical History Cancer Cardiac murmur Cardiology follow-up encounter Cataract Constipation CPAP (continuous positive airway pressure) dependence History of bladder carcinoma History of hyperlipidemia 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 HTN (hypertension) Hyperglycemia Loose, teeth Myocardial infarction PORT PLACEMENT Sleep apnea Sleep apnea Wears dentures Home Medications metoprolol tartrate 12.5 mg PO QHS 06/27/13 [History Last Taken 06/21/20] timolol maleate 1 drp LEFT EYE DAILY 10/15/14 [History Last Taken 06/21/20] acetaminophen 500 mg PO Q4H PRN PRN #20 tab 02/20/19 [Rx Last Taken 06/21/20] polyethylene glycol 3350 17 g PO DAILY 05/09/19 [History Last Taken 06/21/20] latanoprost 0.005 % eye drops 1 drp OPHTHALMIC BID 09/02/19 [History Last Taken 06/21/20] cholecalciferol (vitamin D3) 2,000 unit PO DAILY 12/31/19 [History Last Taken 06/21/20] aspirin 81 mg PO DAILY 06/29/20 [History Last Taken 07/03/20] lidocaine-prilocaine 1 applicatio TP DAILY PRN PRN 30 Days #1 tube 07/01/20 [Rx Last Taken Unknown] simvastatin 40 mg PO QHS 10/01/20 [History Last Taken Unknown] lidocaine-prilocaine 2.5 %-2.5 % topical cream 1 applic TOPICAL ONCE PRN 30 Days #30 g 07/26/21 [Rx Last Taken Unknown] ondansetron 8 mg disintegrating tablet 8 mg PO Q8H PRN PRN 10 Days #30 tab.ibrahimadis 07/26/21 [Rx Last Taken Unknown] Allergy/AdvReac Type Severity Reaction Status Date / Time cephalexin [From Keflex] AdvReac Severe Diarrhea Verified 08/26/21 08:47 Family History Father Heart disease Mother Hypertension Surgical History History of colonoscopy History of coronary artery bypass graft x 2 History of cystoscopy History of heart artery stent History of transurethral resection of prostate Hx of cystoscopy Social History household members: spouse housing: house Smoking Status: Current every day smoker tobacco type: cigarettes Tobacco: How many years used: 58 Electronic Cigarette Use: not used alcohol intake: never substance use type: does not use well-balanced diet: daily or most days caffeine: Yes Type: coffee Number of servings: 3 eating out: rarely or never during the past year weight has: remained stable what type of physical activity do you participate in: walking and bicycling frequency: 1-2 times per week duration: 15-30 minutes/day christine/nondenominational: Taoist seatbelt use: always do you feel safe at home: Yes ROS Constitutional Constitutional: Denies chills, fever(s) or malaise Eyes Eyes: Denies blurry vision or change in vision ENT HEENT: Reports none Cardiovascular Cardiovascular: Denies chest pain or palpitations Respiratory/Chest Respiratory/Chest: Denies cough or shortness of breath with exertion Gastrointestinal Gastrointestinal: Denies abdominal pain, constipation or diarrhea Musculoskeletal Musculoskeletal: Denies back pain, joint stiffness or joint swelling Integumentary Integumentary: Denies dry skin, jaundice, lesions or rash Neurologic Neurologic: Denies confusion, syncope or weakness Psychiatric Psychiatric: Reports none; Denies anxiety or depression Endocrine Endocrinology: Denies excessive sweating, fatigue or flushing Hematologic/Lymphatic Hematologic/Lymphatic: Denies anemia, easy bleeding or easy bruising Vital Signs Vital Signs Vital Signs: 08/26/21 08:45 08/26/21 09:44 08/26/21 10:17 Temperature 97.0 F L Temperature Source Temporal Pulse Rate 82 66 Respiratory Rate 14 18 18 Blood Pressure 136/81 H 137/75 H Blood Pressure Mean 99 95 Pulse Ox 100 98 99 Oxygen Delivery Method Room Air Room Air Room Air 08/26/21 11:46 Temperature 98 F Temperature Source Temporal Pulse Rate 80 Respiratory Rate 18 Blood Pressure 119/104 H Blood Pressure Mean 109 Pulse Ox 98 Oxygen Delivery Method Room Air Weight Weight: 63.5 kg Body Mass Index (BMI) 22.6 Physical Exam Const alert and oriented x3 General Appearance: cooperative HEENT normocephalic and head/scalp atraumatic Eyes PERRL and EOMs intact bilaterally Neck supple, no JVD and no carotid bruits Resp normal respiratory effort, normal air movement and clear to auscultation bilaterally Cardio regular rate and no murmurs GI normal to inspection, nondistended, normoactive bowel sounds and soft to palpation Extremity normal capillary refill General Extremity: no tenderness to palpation of joints or extremities; Negative for edema Skin no rashes or lesions noted and no wounds General Skin Exam: no breakdown Neuro CN's II-XII intact bilaterally Psych affect normal Appearance: appropriate Results Lab / Micro Data Result Diagrams: 08/26/21 09:25 08/26/21 09:25 Labs: Laboratory Results - last 24 hr 08/26/21 09:25: WBC 9.2, RBC 3.77 L, Hgb 12.1 L, Hct 37.0 L, MCV 98.1 H, MCH 32 .1 H, MCHC 32.7, RDW Std Deviation 53.8 H, RDW Coeff of Jasson 15.4 H, Plt Count 189, MPV 9.0, Immature Gran % (Auto) 0.700, Neut % (Auto) 81.1 H, Lymph % (Auto) 7.6 L, [place] % (Auto) 9.2, Eos % (Auto) 0.5, Baso % (Auto) 0.9, Absolute Neuts (auto) 7.5, Absolute Lymphs (auto) 0.70 L, Nucleated RBC % 0 08/26/21 09:25: Sodium 140, Potassium 3.6, Chloride 111 H, Carbon Dioxide 22.0, Anion Gap 7, BUN 40 H, Creatinine 2.14 H, Estim Creat Clear Calc 26.79, Est GFR (MDRD) Af Amer 39 L, Est GFR (MDRD) Non-Af 32 L, BUN/Creatinine Ratio 18.7, Gl ucose 98, Calcium 8.6 08/26/21 09:25: Lactic Acid 1.1 Micro: Microbiology 08/26/21 09:10 Nasal Secretion SARS-CoV-2 Antigen (Rapid) - Final Radiology Impression Abdomen/Pelvis CT 08/26/21 08:58 IMPRESSION: Status post cystectomy with ileal loop in the right lower quadrant. Stable appearance of the right kidney and stable mild area of the right hydronephrosis. Double-J stent catheter is seen. Marked degree of left hydronephrosis and left hydroureter. This has progressed as compared to prior study. Interval decrease in size of the previously seen soft tissue density in the left para-aortic region. Electronically Signed: Franky Perla MD at 10:31 EST , Service support , Assessment & Plan Assessment/Plan (1) Obstructed, uropathy: PLAN: Plan for left nephrostomy tube placement today, he will be admitted. (2) Abdominal pain: PLAN: Abdominal pain is probably from the dilated left kidney (3) Hyperglycemia: (4) Bladder cancer: QUALIFIERS: Bladder location: unspecified site Qualified Code(s): C67.9 - Malignant neoplasm of bladder, unspecified PLAN: Bladder cancer current currently on immunotherapy
--- NOTE | 2021-08-26 12:50 | CASEMGMT ---
Face to Face with patient for initial transition planning/care coordination assessment. RN CM introduced self and role at [facility]. Patient alert and oriented, lying on ER cart in no apparent distress. [id number] Iveth present at bedside. Care providers, pharmacy, and demographics verified. PCP: Lana Solomon Specialists: Gilbert- urology, Maggie-cardiology, Ashley- oncology Preferred Pharmacy: [facility] Insurance: [facility] Medicare Prescription Benefit: yes Living Will/HPOA: Patient denies having a living will or HPOA. LNOK: - Slime Wallace Living Arrangements: Patient lives with in mobile home with ramp to enter. Patient states independent with ADLs prior to hospitalization. Social: smokes 1/4 ppd, denies ETOH or drug use Transportation: Patient states he drives and denies transportation needs. DME/HHC/SNF: Patient typically ambulates without an assistive device. Patient has a walk-in shower with shower chair and grab bars at home. Patient wears a CPAP at night (no oxygen bled in). Previous HHC following surgical procedure but unsure of HHC company. Denies previous SNF stays. Patient has no concerns with going home at time of discharge. CM to follow for any discharge planning/needs. Patient voices no concerns/needs at this time. Advised patient to ask for CM if any questions/concerns/needs arise. Voices understanding. Plan: home
--- NOTE | 2021-08-26 12:52 | ED.RN ---
Dr Pappas calls and requests for a left nephrostomy tube placement by radiology. This RN update Dr Disla and calls radiology to let them know. They state they are ready for patient juan m and that they will recover patient and send him to the floor afterwards.
[2021-08-26] MEDS: fentaNYL 100 MCG/2 ML Ampul IV (13:38)
[2021-08-26] MEDS: Midazolam 2 MG/2 ML Syringe IV (13:39)
--- NOTE | 2021-08-26 14:33 | NURSING ---
increase in temp 101.8, bp 136/69, c/o discomfort to the left side, shivering, talked with Marivel HONEYCUTT advised of care in radiology, stated that we had paged dr darling for orders for the drainage obtained during the nephrostomy tube placement
--- NOTE | 2021-08-26 14:39 | NURSING ---
transferred back to ER, pt is nauseated, daughterinlaw present
[2021-08-26] MEDS: Lidocaine 2% (20 ml mdv) 20 ML Vial INFILT (14:56)
--- NOTE | 2021-08-26 14:57 | NURSING ---
Pt returned to ED room 3 by this rn. Continue to await inpatient room assignment. Dr. Disla notified of patient's abd pain, order given, pt medicated per order. DIL at bedside. Pt Resting more comfortably now.
[2021-08-26 16:23] LABS: Bacteria 0 SEEN /hpf (None Seen); Mucous, Urine 0 SEEN /hpf (<or=2+); Red Blood Cells-Urine 0 SEEN /hpf (0-5); Squamous Epithelial Cells - UA 0 SEEN /hpf (0-5)
[2021-08-26 16:33] LABS: Color, Urine Brown (Yellow); Glucose, Dipstick Normal (Normal); Ketone-Dipstick 5 mg/dl (Negative); Leukocyte Esterase-Dipstick 500 /ul (Negative); Nitrite-Dipstick Negative (Negative); Occult Blood-Urine 250 /ul (Negative); Protein-Dipstick 100 mg/dl (Negative); Urine Bilirubin Dipstick Negative (Negative); Urine Clarity Turbid (Clear); Urine Urobilinogen Normal (Normal)
[2021-08-26] MEDS: Vancomycin IV 1,000 MG/200 ML BAG 200 MG IV (16:57)
[2021-08-26 17:49] LABS: White Blood Cells >100 SEEN /hpf (0-5)
[2021-08-26] MEDS: Lactated Ringers 500 ML 999 ML IV (18:40)
[2021-08-26] MEDS: Atorvastatin Calcium 20 MG Tablet PO (20:09)
[2021-08-26] MEDS: Acetaminophen 500 MG Tablet PO (20:09)
[2021-08-26] MEDS: Latanoprost 0.005% 1 Bottle 1 DRP OPHTHALMIC (20:11)
[2021-08-26] MEDS: Ciprofloxacin 400 MG/200 ML BAG 200 MG IV (22:15)
[2021-08-27] MEDS: Acetaminophen 500 MG Tablet PO (00:06)
[2021-08-27 02:50] VITALS: BP 100/57; PULSE 82; RESP 16; TEMP 36.8; O2SAT 94
[2021-08-27] MEDS: 0.9% Normal Saline 1,000 ML 150 ML IV ×2 (05:31→13:28)
--- NOTE | 2021-08-27 07:26 | PCM.CONS.U ---
Assessment & Plan Assessment/Plan (1) Complication of Ileal conduit: (2) Prostate cancer: (3) Hydronephrosis, bilateral: (4) Metastatic cancer to intra-abdominal lymph nodes: HPI Consult Data Date of Consult: 08/27/21 HPI Narrative HPI Narrative: RAMY BALL, is a 76 M who presents to the hospital he was admitted yesterday underwent nephrostomy tube placement the left side with improvement in urine output CBC and BMP pending this morning we will continue to monitor, once his creatinine normalizes and is stable we can discharge him. He was hypotensive last night had to give him some fluids but this point he is better. [facility] Medical History (Updated 08/26/21 @ 18:22 by Lemuel Hood) Cancer Cardiac murmur Cardiology follow-up encounter Cataract Constipation CPAP (continuous positive airway pressure) dependence History of bladder carcinoma History of hyperlipidemia 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 HTN (hypertension) Hyperglycemia Loose, teeth Myocardial infarction PORT PLACEMENT Sleep apnea Sleep apnea Wears dentures Home Medications metoprolol tartrate 12.5 mg PO QHS 06/27/13 [History Last Taken 08/25/21] acetaminophen 500 mg PO Q4H PRN PRN #20 tab 02/20/19 [Rx Last Taken 06/21/20] polyethylene glycol 3350 17 g PO DAILY 05/09/19 [History Last Taken 06/21/20] latanoprost 0.005 % eye drops 1 drp OPHTHALMIC BID 09/02/19 [History Last Taken 08/26/21] cholecalciferol (vitamin D3) 2,000 unit PO DAILY 12/31/19 [History Last Taken 08/25/21] aspirin 81 mg PO DAILY 06/29/20 [History Last Taken 08/25/21] lidocaine-prilocaine 1 applicatio TP DAILY PRN PRN 30 Days #1 tube 07/01/20 [Rx Last Taken Unknown] simvastatin 40 mg PO QHS 10/01/20 [History Last Taken 08/25/21] lidocaine-prilocaine 2.5 %-2.5 % topical cream 1 applic TOPICAL ONCE PRN 30 Days #30 g 07/26/21 [Rx Last Taken Unknown] ondansetron 8 mg disintegrating tablet 8 mg PO Q8H PRN PRN 10 Days #30 tab.rapdis 07/26/21 [Rx Last Taken Unknown] Allergy/AdvReac Type Severity Reaction Status Date / Time cephalexin [From Keflex] AdvReac Severe Diarrhea Verified 08/26/21 08:47 Family History Father Heart disease Mother Hypertension Surgical History History of colonoscopy History of coronary artery bypass graft x 2 History of cystoscopy History of heart artery stent History of transurethral resection of prostate Hx of cystoscopy Social History household members: spouse housing: house Smoking Status: Current every day smoker tobacco type: cigarettes Tobacco: How many years used: 58 Electronic Cigarette Use: not used alcohol intake: never substance use type: does not use well-balanced diet: daily or most days caffeine: Yes Type: coffee Number of servings: 3 eating out: rarely or never during the past year weight has: remained stable what type of physical activity do you participate in: walking and bicycling frequency: 1-2 times per week duration: 15-30 minutes/day christine/roman catholic: Hinduism seatbelt use: always do you feel safe at home: Yes Lab / Micro Data Result Diagrams: 08/26/21 09:25 08/26/21 09:25 Labs: Laboratory Results - last 24 hr 08/26/21 09:25: WBC 9.2, RBC 3.77 L, Hgb 12.1 L, Hct 37.0 L, MCV 98.1 H, MCH 32.1 H, MCHC 32.7, RDW Std Deviation 53.8 H, RDW Coeff of Jasson 15.4 H, Plt Count 189, MPV 9.0, Immature Gran % (Auto) 0.700, Neut % (Auto) 81.1 H, Lymph % (Auto) 7.6 L, [place] % (Auto) 9.2, Eos % (Auto) 0.5, Baso % (Auto) 0.9, Absolute Neuts (auto) 7.5, Absolute Lymphs (auto) 0.70 L, Nucleated RBC % 0 08/26/21 09:25: Sodium 140, Potassium 3.6, Chloride 111 H, Carbon Dioxide 22.0, Anion Gap 7, BUN 40 H, Creatinine 2.14 H, Estim Creat Clear Calc 26.79, Est GFR (MDRD) Af Amer 39 L, Est GFR (MDRD) Non-Af 32 L, BUN/Creatinine Ratio 18.7, Glucose 98, Calcium 8.6 08/26/21 09:25: Lactic Acid 1.1 08/26/21 : Urine Color Brown, Urine Clarity Turbid, Urine pH 7.0, Ur Specific [place] 1.010, Urine Protein 100 H, Urine Glucose (UA) Normal, Urine Ketones 5 H, Urine Occult Blood 250 H, Urine Nitrite Negative, Urine Bilirubin Negative, Urine Urobilinogen Normal, Ur Leukocyte Esterase 500 H, Urine RBC 0 SEEN, Urine WBC >100 SEEN, Ur Squamous Epith Cells 0 SEEN, Urine Bacteria 0 SEEN, Urine Mucus 0 SEEN Micro: Microbiology 08/26/21 09:25 Blood Culture (Wb) - Chest Blood Culture - Preliminary 08/26/21 09:35 Blood Culture (Wb) - Left Hand Blood Culture - Preliminary 08/26/21 09:10 Nasal Secretion SARS-CoV-2 Antigen (Rapid) - Final Radiology Impression Abdomen/Pelvis CT 08/26/21 08:58 IMPRESSION: Status post cystectomy with ileal loop in the right lower quadrant. Stable appearance of the right kidney and stable mild area of the right hydronephrosis. Double-J stent catheter is seen. Marked degree of left hydronephrosis and left hydroureter. This has progressed as compared to prior study. Interval decrease in size of the previously seen soft tissue density in the left para-aortic region. Electronically Signed: Franky Perla MD at 10:31 EST , Service support , Nephrostomy Tube Change 08/26/21 12:43 IMPRESSION: 1. The percutaneous left nephrostomy catheter is in good position with the pigtail portion located in the left renal pelvis. 2. Conscious sedation protocol was followed. Electronically Signed: Franky Perla MD at 14:33 EST , Service support ,
[2021-08-27 09:12] LABS: Hematocrit 29.9 % (40-54); Hemoglobin 9.8 g/dL (13.0-16.5); Mean Corp Hgb Conc 32.8 g/dL (32-36); Mean Corpuscular Hgb 32.7 pg (27.0-32.0); Mean Corpuscular Volume 99.7 fL (80-94); Mean Platelet Vol. 9.2 fl (6.2-12.0); Platelet Count 135 K/mm3 (150-450); RBC Distribution Width CV 15.9 % (11.6-14.6); White Blood Count 13.7 K/mm3 (4.4-11.0)
[2021-08-27 09:25] VITALS: O2SAT 94
[2021-08-27 09:29] LABS: Anion Gap 5 (5-15); BUN 35 mg/dL (7-18); BUN/Creat Ratio 18.1 RATIO (10-20); Calcium,Total 7.5 mg/dL (8.5-10.1); Chloride 117 mmol/L (98-107); Creatinine, Serum 1.93 mg/dL (0.70-1.30); EST Glomerular Filtration Rate 36 mL/min (>60); Est Glom Filt Rate - Afr Amer 44 mL/min (>60); Estimated Creatinine Clearance 29.84 ml/min; Glucose 91 mg/dL (74-106); Potassium 3.5 mmol/L (3.5-5.1); Sodium Level 142 mmol/L (136-145)
[2021-08-27 09:46] VITALS: BP 86/52; PULSE 62; RESP 16; TEMP 36.9; O2SAT 97
[2021-08-27] MEDS: Cholecalciferol (VIT D3) 25 MCG TABLET (1,000 UNITS) 50 MCG PO (09:49)
[2021-08-27] MEDS: 0.9% Saline Lock 10 ML Syringe IV ×2 (09:49→16:30)
[2021-08-27] MEDS: Polyethylene Glycol 3350 17 GM PACKET PO (09:49)
--- NOTE | 2021-08-27 10:42 | NURSING ---
received a call from Iveth - pts daugther in law - concerning procedure that Dr. Hunt wants pt to have in [place]. Iveth states talked with Dr. Ramirez this am and since pt will start his chemo on 08/30/21 which will run for 3 wks then pt will have an off week the week of sep 20-. that this is when the procedure in [place] should be. Called Dr. Hunt and gave him this information and it will be taken care of.
[2021-08-27 11:35] VITALS: BP 96/54; PULSE 62; RESP 16; TEMP 36.8; O2SAT 98
[2021-08-27 11:37] VITALS: BP 96/54; PULSE 62; RESP 16; TEMP 36.8; O2SAT 98
--- NOTE | 2021-08-27 16:14 | PCM.DC.SUM ---
Providers Date of Admission: 08/26/21 Primary Care Physician: Dr. Lana Solomon, Reason For Visit: LEFT HYDRONEPHROSIS Diagnosis Discharge Diagnosis (1) Complication of Ileal conduit: Status: Chronic Code(s): N99.528 - Other complication of incontinent external stoma of urinary tract (2) Prostate cancer: Status: Chronic Code(s): C61 - Malignant neoplasm of prostate (3) Hydronephrosis, bilateral: Status: Chronic Code(s): N13.30 - Unspecified hydronephrosis (4) Metastatic cancer to intra-abdominal lymph nodes: Status: Chronic Code(s): C77.2 - Secondary and unspecified malignant neoplasm of intra-abdominal lymph nodes Medications at Discharge Home Medications metoprolol tartrate 12.5 mg PO QHS 06/27/13 acetaminophen 500 mg PO Q4H PRN PRN #20 tab 02/20/19 polyethylene glycol 3350 17 g PO DAILY 05/09/19 latanoprost 0.005 % eye drops 1 drp OPHTHALMIC BID 09/02/19 cholecalciferol (vitamin D3) 2,000 unit PO DAILY 12/31/19 aspirin 81 mg PO DAILY 06/29/20 lidocaine-prilocaine 1 applicatio TP DAILY PRN PRN 30 Days #1 tube 07/01/20 simvastatin 40 mg PO QHS 10/01/20 lidocaine-prilocaine 2.5 %-2.5 % topical cream 1 applic TOPICAL ONCE PRN 30 Days #30 g 07/26/21 ondansetron 8 mg disintegrating tablet 8 mg PO Q8H PRN PRN 10 Days #30 tab.rapdis 07/26/21 Hospital Course Summary of Care Provided Minutes Spent on Discharge: 30 Hospital Course: Patient was with acute renal failure left severe hydronephrosis underwent placement of nephrostomy tube next day his creatinine came down nicely he is clinically stable and you go home today with the nephrostomy tube he does have a right stent in place through the his ileal conduit he need to follow-up in my office for further care. Physical Exam Const alert and oriented x3 General Appearance: cooperative HEENT normocephalic and head/scalp atraumatic Eyes PERRL and EOMs intact bilaterally Neck supple, no JVD and no carotid bruits Resp normal respiratory effort, normal air movement and clear to auscultation bilaterally Cardio regular rate and no murmurs GI normal to inspection, nondistended, normoactive bowel sounds and soft to palpation Extremity normal capillary refill General Extremity: no tenderness to palpation of joints or extremities; Negative for edema Skin no rashes or lesions noted and no wounds General Skin Exam: no breakdown Neuro CN's II-XII intact bilaterally Psych affect normal Appearance: appropriate Weight / BMI Weight Weight: 65.4 kg Body Mass Index (BMI) 23.2 ABG / Lab / Microbiology Data Result Diagrams: 08/27/21 08:50 08/27/21 08:50 Laboratory: Laboratory Results - last 24 hr 08/26/21 : Urine Color Brown, Urine Clarity Turbid, Urine pH 7.0, Ur Specific [place] 1.010, Urine Protein 100 H, Urine Glucose (UA) Normal, Urine Ketones 5 H, Urine Occult Blood 250 H, Urine Nitrite Negative, Urine Bilirubin Negative, Urine Urobilinogen Normal, Ur Leukocyte Esterase 500 H, Urine RBC 0 SEEN, Urine WBC >100 SEEN, Ur Squamous Epith Cells 0 SEEN, Urine Bacteria 0 SEEN, Urine Mucus 0 SEEN 08/27/21 08:50: WBC 13.7 H, RBC 3.00 L, Hgb 9.8 L, Hct 29.9 L, MCV 99.7 H, MCH 32.7 H, MCHC 32.8, RDW Std Deviation 56.0 H, RDW Coeff of Jasson 15.9 H, Plt Count 135 L, MPV 9.2 08/27/21 08:50: Sodium 142, Potassium 3.5, Chloride 117 H, Carbon Dioxide 20.0 L, Anion Gap 5, BUN 35 H, Creatinine 1.93 H, Estim Creat Clear Calc 29.84, Est GFR (MDRD) Af Amer 44 L, Est GFR (MDRD) Non-Af 36 L, BUN/Creatinine Ratio 18.1, Glucose 91, Calcium 7.5 L Microbiology: Microbiology 08/26/21 Unknown Urine, Random Urine 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 08/26/21 09:25 Blood Culture (Wb) - Chest Blood Culture - Preliminary 08/26/21 09:35 Blood Culture (Wb) - Left Hand Blood Culture - Preliminary 08/26/21 09:10 Nasal Secretion SARS-CoV-2 Antigen (Rapid) - Final D/C Instructions Discharge Diet: No restrictions Discharge Activity: Return to Normal Activity Additional Activity Instructions: nephrostomy tube care Cleanse incision/area with: Keep Dressing Clean & Dry Please Follow Up With: phong When: 2 weeks Meaningful Use Info Meaningful Use Diagnoses (Choose all that apply): None applicable Discharge Plan Admission Admit Date/Time: 08/26/21 12:44 Primary Reason for Your Visit: left nephrostomy tube placement Attending Provider: Nazario Hunt Primary Care Provider: Lana Solomon Discharge Orders/Prescriptions Prescriptions: Continued latanoprost 0.005 % drops 1 drp OPHTHALMIC BID RF: 0 ondansetron 8 mg tablet,disintegrating 8 mg PO Q8H PRN PRN (Reason: Nausea) 10 Days Qty: 30 RF: 3 lidocaine-prilocaine 2.5-2.5 % cream 1 applic topical ONCE PRN (Reason: port access) 30 Days Qty: 30 RF: 2 metoprolol tartrate 25 MG tablet 12.5 mg PO QHS RF: 0 acetaminophen 500 MG tablet 500 mg PO Q4H PRN PRN (Reason: Pain) Qty: 20 RF: 0 polyethylene glycol 3350 17 GM packet 17 g PO DAILY RF: 0 cholecalciferol (vitamin D3) 2,000 UNIT capsule 2,000 unit PO DAILY RF: 0 aspirin 81 MG tablet,delayed release (DR/EC) 81 mg PO DAILY RF: 0 lidocaine-prilocaine 30 GM cream 1 applicatio TP DAILY PRN PRN (Reason: Not Specified) 30 Days Qty: 1 RF: 2 simvastatin 40 MG tablet 40 mg PO QHS RF: 0 Referrals / Follow Up: Nazario Hunt MD [STAFF PHYSICIAN] - Lana Solomon DO [Primary Care Provider] - Disposition Discharge Orders: Discharge Patient (Routine); Ordered 08/27/21 Ordered By: Dr. Nazario Hunt
--- NOTE | 2021-08-27 16:16 | PCM.DC ---
Discharge Instructions Diet Discharge Diet: No restrictions Activity Additional Activity Instructions:: nephrostomy tube care Dressing / Incision Cleanse incision/area with: Keep Dressing Clean & Dry Follow Up Care Please Follow Up With: phong Test Results: Test results from this visit will be discussed in further detail at your follow-up appointment, if applicable. Discharge Plan Admission Admit Date/Time: 08/26/21 12:44 Primary Reason for Your Visit: left nephrostomy tube placement Attending Provider: Nazario Hunt Primary Care Provider: Lana Solomon Discharge Orders/Prescriptions Prescriptions: Continued latanoprost 0.005 % drops 1 drp OPHTHALMIC BID RF: 0 ondansetron 8 mg tablet,disintegrating 8 mg PO Q8H PRN PRN (Reason: Nausea) 10 Days Qty: 30 RF: 3 lidocaine-prilocaine 2.5-2.5 % cream 1 applic topical ONCE PRN (Reason: port access) 30 Days Qty: 30 RF: 2 metoprolol tartrate 25 MG tablet 12.5 mg PO QHS RF: 0 acetaminophen 500 MG tablet 500 mg PO Q4H PRN PRN (Reason: Pain) Qty: 20 RF: 0 polyethylene glycol 3350 17 GM packet 17 g PO DAILY RF: 0 cholecalciferol (vitamin D3) 2,000 UNIT capsule 2,000 unit PO DAILY RF: 0 aspirin 81 MG tablet,delayed release (DR/EC) 81 mg PO DAILY RF: 0 lidocaine-prilocaine 30 GM cream 1 applicatio TP DAILY PRN PRN (Reason: Not Specified) 30 Days Qty: 1 RF: 2 simvastatin 40 MG tablet 40 mg PO QHS RF: 0 Referrals / Follow Up: Nazario Hunt MD [STAFF PHYSICIAN] - Lana Solomon DO [Primary Care Provider] - Disposition Discharge Orders: Discharge Patient (Routine); Ordered 08/27/21 Ordered By: Dr. Nazario Hunt
[2021-08-27 16:31] VITALS: BP 110/63; PULSE 66; RESP 18; TEMP 36.8; O2SAT 98
== END 2021-08-27 17:01 | disposition short-term general hospital (02) | DRG 699 ==
LOC: ED 11:44 → MS3 15:43
PROVIDERS: Admitting Provider Urology; Emergency Provider Emergency Medicine; Visit Provider Urology
DX: N99.528 Other complication of incontinent external stoma of urinary tract (principal); N13.30 Unspecified hydronephrosis; C77.9 Secondary and unspecified malignant neoplasm of lymph node, unspecified; N17.9 Acute kidney failure, unspecified; C61 Malignant neoplasm of prostate; C67.9 Malignant neoplasm of bladder, unspecified; I95.9 Hypotension, unspecified; I25.2 Old myocardial infarction; E78.5 Hyperlipidemia, unspecified; I10 Essential (primary) hypertension; F17.210 Nicotine dependence, cigarettes, uncomplicated; Z20.822 Contact with and (suspected) exposure to COVID-19; R73.9 Hyperglycemia, unspecified; Z79.82 Long term (current) use of aspirin; Z79.899 Other long term (current) drug therapy; Z95.1 Presence of aortocoronary bypass graft; Z95.5 Presence of coronary angioplasty implant and graft; Z90.79 Acquired absence of other genital organ(s)
CPT/HCPCS: 36415; 36591; 50432; 74176; 80048; 81001; 83605; 85025; 85027; 87040; 87077; 87086; 87088; 87186; 87426; 99156; 99283; J7030; J7050; J7120; A4216; J0744; J2405; J3490

== ENCOUNTER 2021-11-15 07:36 | Outpatient (CLI) | payer MEDICARE, SELFPAY ==
--- NOTE | 2021-11-15 07:40 | CT_ITS ---
STUDY: CT ABDOMEN AND PELVIS WITHOUT CONTRAST REASON FOR EXAM: Male, 76 years old. Bladder ca assess response to treatment RADIATION DOSAGE (If Supplied By Facility): CTDIvol = ( 6.18 ) mGy, DLP = ( 280.86 ) mGycm TECHNIQUE: Transaxial images were obtained from the dome of the diaphragm to the symphysis pubis without oral contrast, and without intravenous contrast. Sagittal and coronal images were reconstructed. Individualized dose optimization techniques were used for this CT. COMPARISON: Comparison is made with prior examination dated 08/26/2021. FINDINGS: The visualized lung bases are unremarkable. Coronary artery calcification. Normal liver. Normal gallbladder and extrahepatic biliary system. Normal spleen. Normal pancreas. Normal bilateral adrenal glands. Mild degree of residual left hydronephrosis. Bilateral ureteral stents are seen. There is a mild atrophy of the right kidney. Stable tiny calculus in the lower pole calyx of the left kidney. Normal visualized stomach. Normal small intestine. Normal colon. The appendix is visualized and appears normal. There is diffuse atherosclerotic calcification of the abdominal aorta and its major visceral branches, without a demonstrated aneurysm. Normal inferior vena cava. Stable small retroperitoneal lymph nodes. The patient is status post resection of the urinary bladder with a right sided ileal loop. There is evidence of prior anterior abdominal wall hernia repair. There are diffuse degenerative changes of the visualized lumbar spine. CT/Abdomen/Pelvis without Cont IMPRESSION: Status post resection of the urinary bladder with a right ileal loop. Bilateral ureteral stents are seen. Mild degree of residual left hydronephrosis. Stable atrophy of the right kidney. Electronically Signed: Franky Perla MD at 15:14 EDT ,
== END 2021-11-15 23:59 | disposition home or self-care (01) ==
LOC: CT 07:38
PROVIDERS: Referring Provider Nurse Practitioner Family; Visit Provider Nurse Practitioner Family
DX: C67.9 Malignant neoplasm of bladder, unspecified (principal); C77.2 Secondary and unspecified malignant neoplasm of intra-abdominal lymph nodes
CPT/HCPCS: 74176

== ENCOUNTER → 2022-02-09 | Outpatient (CLI) | payer MEDICARE, SELFPAY ==
--- NOTE | 2022-02-09 13:25 | CT_ITS ---
EXAM: CT CHEST, ABDOMEN AND PELVIS WITHOUT INTRAVENOUS CONTRAST CLINICAL INDICATION: U.B. CANCER WITH L.N. METS ON RX TECHNIQUE: Helically acquired images were obtained of the chest, abdomen and pelvis without intravenous contrast. This CT exam was performed using one or more of the following dose reduction techniques: automated exposure control, adjustment of the mA and/or kV according to patient size, and/or use of iterative reconstruction technique. This report was created using [employer] report generation technology. RADIATION DOSE: CTDIvol = 9.34 mGy, DLP = 832.19 mGy-cm COMPARISON: ct chest Jun 29 2021 10:33am FINDINGS: CHEST: LUNGS AND PLEURAL SPACES: Unremarkable. No mass. No consolidation or edema. No pleural effusion or thickening. No pneumothorax. HEART: There are calcifications of the coronary arteries. MEDIASTINUM: Unremarkable. No mediastinal or hilar adenopathy. Esophagus is unremarkable. No hiatal hernia. THYROID: Unremarkable. No thyroid lesions. ABDOMEN: LIVER: Unremarkable. Homogeneous. GALLBLADDER AND BILE DUCTS: There are multiple gallstones. No gallbladder distention or wall edema. No intra- or extrahepatic biliary ductal dilation. PANCREAS: Unremarkable. No focal cystic mass. SPLEEN: Unremarkable. Normal size without focal cystic or solid mass. ADRENALS: Unremarkable. No nodules. KIDNEYS AND URETERS: Bilateral double-J ureteral stents in place. Distal tip is in the ileal loop which protrudes through the urostomy in the right lower quadrant. Chronic appearing bilateral hydronephroureter. There is moderate cortical atrophy of the right kidney, consistent with chronic medical renal disease. STOMACH AND BOWEL: There are multiple colonic diverticula consistent with diverticulosis. There is a right peristomal hernia containing small bowel. This is a chronic finding. Strangulation or incarceration is not identified currently but not excluded. Exclusion is based on physical examination. A prospective or current developing event such as an obstruction cannot be excluded. Physical examination may be warranted in individuals with hernias. Surveillance may be warranted in individuals with hernias. Normal visualized stomach. No focal inflammatory change. PELVIS: APPENDIX: There is non-visualization of the appendix. BLADDER: surgically absent. REPRODUCTIVE: Unremarkable as visualized. No mass. CHEST, ABDOMEN and PELVIS: INTRAPERITONEAL SPACE: Unremarkable. No ascites or other fluid collection. No free air. BONES/JOINTS: There are degenerative changes of the shoulders. Multiple median sternotomy wires are noted consistent for cardiac surgery. There are multi-level degenerative changes of the thoracic spine. Loss of height of the superior endplate of the L3 vertebra. There are diffuse degenerative changes of the visualized lumbar spine. There is bilateral neural foraminal stenosis at L4-5 and L5-S1. No suspicious lytic or blastic abnormality. SOFT TISSUES: See above. VASCULATURE: There is atherosclerotic calcification of the aortic arch with tortuosity and elongation of the aortic arch and descending thoracic aorta. There are calcifications of the abdominal aorta. This is consistent for atherosclerotic disease. There is no abdominal aortic aneurysm. LYMPH NODES: Stable 8.5 mm right paratracheal lymph node. Improvement in the size of left periaortic lymph node. It presently measures 19 mm. TUBES, LINES AND DEVICES: There is a right Port-A-Cath and/or mediport in place. The tip is in the superior vena cava. CT/CT Chest, Abd, Pelvis WO Cont IMPRESSION: 1. Stable 8.5 mm right paratracheal lymph node. 2. There are multiple gallstones. 3. Bilateral double-J ureteral stents in place. Distal tip is in the ileal loop which protrudes through the urostomy in the right lower quadrant. Chronic appearing bilateral hydronephroureter. 4. There are multiple colonic diverticula consistent with diverticulosis. 5. Improvement in the size of left periaortic lymph node. It presently measures 19 mm. Electronically Signed: Carlos Alberto Dawkins MD at 22:03 EDT ,
== END | disposition home or self-care (01) ==
LOC: CT 13:24
PROVIDERS: Referring Provider Internal Medicine Hematology & Oncology; Visit Provider Internal Medicine Hematology & Oncology
DX: C67.9 Malignant neoplasm of bladder, unspecified (principal); C77.9 Secondary and unspecified malignant neoplasm of lymph node, unspecified
CPT/HCPCS: 71250; 74176

== ENCOUNTER → 2022-03-25 | Outpatient (CLI) | payer MEDICARE, SELFPAY ==
--- NOTE | 2022-03-25 14:20 | CT_ITS ---
EXAM: CT CHEST, ABDOMEN AND PELVIS WITHOUT INTRAVENOUS CONTRAST CLINICAL INDICATION: RESTAGING METASTATIC URINARY BLADDER CANCER TECHNIQUE: Helically acquired images were obtained of the chest, abdomen and pelvis without intravenous contrast. This CT exam was performed using one or more of the following dose reduction techniques: automated exposure control, adjustment of the mA and/or kV according to patient size, and/or use of iterative reconstruction technique. This report was created using [employer] report generation technology. RADIATION DOSE: CTDIvol = 12.32 mGy, DLP = 1056.66 mGy-cm COMPARISON: 02.09.2022 report only. FINDINGS: CHEST: LUNGS AND PLEURAL SPACES: Unremarkable. No mass. No consolidation or edema. No pleural effusion or thickening. No pneumothorax. HEART: Unremarkable. Heart size is normal. No pericardial effusion. No significant coronary artery calcifications. MEDIASTINUM: Unremarkable. No mediastinal or hilar adenopathy. Esophagus is unremarkable. No hiatal hernia. THYROID: Unremarkable. No thyroid lesions. ABDOMEN: LIVER: Unremarkable. Homogeneous. GALLBLADDER AND BILE DUCTS: Gallstones. No gallbladder distention or wall edema. No intra- or extrahepatic biliary ductal dilation. PANCREAS: Unremarkable. No focal cystic mass. SPLEEN: Unremarkable. Normal size without focal cystic or solid mass. ADRENALS: Unremarkable. No nodules. KIDNEYS AND URETERS: Bilateral double-J ureteral stents in place. Distal tip is in the ileal loop which protrudes through the urostomy in the right lower quadrant. Chronic appearing bilateral hydronephroureter. Lateral ureteral wall thickening and inflammation suggesting an infectious process. There is moderate cortical atrophy of the right kidney, consistent with chronic medical renal disease. STOMACH AND BOWEL: There is a right peristomal hernia containing small bowel. This is a chronic finding. Strangulation or incarceration is not identified currently but not excluded. Exclusion is based on physical examination. A prospective or current developing event such as an obstruction cannot be excluded. Physical examination may be warranted in individuals with hernias. Surveillance may be warranted in individuals with hernias. There are bilateral inguinal hernias containing fat. There is no bowel involvement. There is no incarceration. There is no findings suggesting that this is causing a bowel obstruction. There are multiple diverticuli of the colon. There is diverticulosis but no radiographic signs for diverticulitis. PELVIS: APPENDIX: The appendix is visualized and is normal. BLADDER: Surgical absence of the urinary bladder. REPRODUCTIVE: Unremarkable as visualized. No mass. CHEST, ABDOMEN and PELVIS: INTRAPERITONEAL SPACE: Unremarkable. No ascites or other fluid collection. No free air. BONES/JOINTS: There are degenerative changes of the shoulders. Degenerative findings of the hips. No suspicious lytic or blastic abnormality. SOFT TISSUES: See above. VASCULATURE: Multiple median sternotomy wires are noted consistent for cardiac surgery. There are atherosclerotic vascular calcifications. There are coronary arterial calcifications. There are calcifications of the abdominal aorta. This is consistent for atherosclerotic disease. There is NO abdominal aortic aneurysm. Vascular workup can be obtained based on clinical correlation. LYMPH NODES: Prominent but decreased in size periaortic lymph nodes. These are inflamed and may suggest lymphadenopathy. Stable right paratracheal lymph node. TUBES, LINES AND DEVICES: There is a right Port-A-Cath and/or mediport in place. The tip is in the superior vena cava. CT/CT Chest, Abd, Pelvis WO Cont IMPRESSION: 1. Gallstones. 2. There is a right peristomal hernia containing small bowel. This is a chronic finding. Strangulation or incarceration is not identified currently but not excluded. Exclusion is based on physical examination. A prospective or current developing event such as an obstruction cannot be excluded. Physical examination may be warranted in individuals with hernias. Surveillance may be warranted in individuals with hernias. 3. Bilateral double-J ureteral stents in place. Distal tip is in the ileal loop which protrudes through the urostomy in the right lower quadrant. Chronic appearing bilateral hydronephroureter. Lateral ureteral wall thickening and inflammation suggesting an infectious process. 4. Prominent but decreased in size periaortic lymph nodes. These are inflamed and may suggest lymphadenopathy. Electronically Signed: Carlos Alberto Dawkins MD at 19:47 EDT ,
== END | disposition home or self-care (01) ==
LOC: CT 14:20
PROVIDERS: Referring Provider Internal Medicine Hematology & Oncology; Visit Provider Internal Medicine Hematology & Oncology
DX: C67.9 Malignant neoplasm of bladder, unspecified (principal)
CPT/HCPCS: 71250; 74176

== ENCOUNTER 2022-04-03 22:37 | Emergency (ER) | payer MEDICARE, SELFPAY ==
[2022-04-03 22:38] VITALS: BP 103/66; PULSE 92; RESP 18; TEMP 37.1; O2SAT 96; BMI 22.8
--- NOTE | 2022-04-03 23:13 | EDS_ITS ---
HPI History of Present Illness Chief Complaint: Nausea/Vomiting/Diarrhea Informant: patient and family Narrative Narrative: History comes from patient and daughter. Patient had a history of bladder cancer with resection almost 20 years ago. 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 He is seeing Dr. Yap. He had chemo approximately 5 and 12 days ago. This is his third treatment of chemo for this new cancer. This is different than the others. This 1 is caused a lot of diarrhea along with some nausea and vomiting. He has not eaten food since . He is trying to drink some Gatorade and Pedialyte but will bring it up also. Drinking the fluids has helped even though he brings some of it up. But he feels dehydrated and overall weak. He has had no fevers chills sweats. No chest pain trouble breathing. He is not having abdominal pain. No blood in the diarrhea. It has been very watery. He still has urine output through his urostomy but it is a little darker. No odor. Nothing really makes his symptoms markedly better or worse. [facility] Medical History Cancer Cardiac murmur Cardiology follow-up encounter Cataract Constipation CPAP (continuous positive airway pressure) dependence Dry skin History of bladder carcinoma History of hyperlipidemia 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 HTN (hypertension) Hyperglycemia Loose, teeth Lower extremity weakness Maculopapular rash Myocardial infarction Oral candidiasis Peripheral motor neuropathy PORT PLACEMENT Right groin mass Right groin mass Sleep apnea Sleep apnea Wears dentures Home Medications metoprolol tartrate 25 mg tablet 12.5 mg PO QHS htn 06/27/13 [History Last Taken 08/25/21] acetaminophen 500 mg tablet 500 mg PO Q4H PRN PRN Pain #20 tabs 02/20/19 [Rx Last Taken 06/21/20] polyethylene glycol 3350 17 gram oral powder packet 17 g PO DAILY 05/09/19 [History Last Taken 06/21/20] latanoprost 0.005 % eye drops 1 drp ophthalmic (eye) BID eyes 09/02/19 [History Last Taken 08/26/21] cholecalciferol (vitamin D3) 50 mcg (2,000 unit) capsule 2,000 unit PO DAILY supplement 12/31/19 [History Last Taken 08/25/21] simvastatin 40 mg tablet 40 mg PO QHS choles 10/01/20 [History Last Taken 08/25/21] lidocaine-prilocaine 2.5 %-2.5 % topical cream 1 applic topical ONCE PRN port access 30 days #30 grams 07/26/21 [Rx Last Taken Unknown] ondansetron 8 mg disintegrating tablet 8 mg PO Q8H PRN PRN Nausea 10 days ##30 07/26/21 [Rx Last Taken Unknown] aspirin 81 mg tablet,delayed release 81 mg PO .every other day heart health 11/24/21 [History Last Taken Unknown] wheeled walker #1 ea 12/29/21 [Rx Last Taken Unknown] dorzolamide 22.3 mg-timolol 6.8 mg/mL eye drops 1 drp ophthalmic (eye) BID 01/26/22 [History Last Taken Unknown] gabapentin 100 mg capsule 300 mg PO BID 02/09/22 [History Last Taken Unknown] loperamide 2 mg capsule (Imodium A-D) 2 mg PO Q4H PRN loose stool #14 caps 04/04/22 [Rx Last Taken Unknown] promethazine 25 mg tablet 25 mg PO TID PRN nausea and vomiting #14 tabs 04/04/22 [Rx Last Taken Unknown] Allergy/AdvReac Type Severity Reaction Status Date / Time cephalexin [From Keflex] AdvReac Severe Diarrhea Verified 04/03/22 22:41 Family History Father Heart disease Mother Hypertension Surgical History History of colonoscopy History of coronary artery bypass graft x 2 History of cystoscopy History of heart artery stent History of renal stent History of transurethral resection of prostate Hx of cystoscopy Social History household members: spouse housing: house Smoking Status: Current some day smoker tobacco type: cigarettes Tobacco: How many years used: 58 Electronic Cigarette Use: not used alcohol intake: never substance use type: does not use well-balanced diet: daily or most days caffeine: Yes Type: coffee Number of servings: 3 eating out: rarely or never during the past year weight has: remained stable what type of physical activity do you participate in: walking and bicycling frequency: 1-2 times per week duration: 15-30 minutes/day christine/sikh: Shinto seatbelt use: always do you feel safe at home: Yes ROS ROS ED Constitutional Constitutional ED: Denies chills, fever(s), subjective or sweats Eyes Eyes: Denies blurry vision ENT ENT ED: Denies rhinorrhea or sore throat Cardiovascular Cardiovascular: Denies chest pain Respiratory/Chest Respiratory/Chest: Denies cough or dyspnea Gastrointestinal Gastrointestinal: Reports diarrhea, nausea and vomiting; Denies abdominal pain, constipation or melena Genitourinary Genitourinary ED: Denies dysuria Musculoskeletal Musculoskeletal: Denies myalgias Integumentary Denies rash Neurologic Neurologic: Denies headache(s) Endocrine Endocrinology: Denies polydipsia or polyuria Hematologic/Lymphatic Hematologic/Lymphatic: Denies easy bleeding or easy bruising Allergic/Immunologic Allergic/Immunologic ED: Denies urticaria EXAM Physical Exam Const Vital Signs: 04/03/22 22:38 Temperature 98.7 F Temperature Source Temporal Pulse Rate 92 Respiratory Rate 18 Blood Pressure 103/66 Blood Pressure Mean 78 Pulse Ox 96 Oxygen Delivery Method Room Air Positive well nourished and well developed General Appearance ED: well developed and NAD HEENT Reports dry mucous membranes Mouth ED: Yes dry mucous membranes Mouth: dry mucous membranes Eyes General Eye ED: Negative for scleral icterus Neck supple Chest Wall inspection of chest normal Resp normal respiratory effort and clear to auscultation bilaterally Auscultation: Negative for rales, rhonchi or wheezes Cardio regular rate and regular rhythm GI normal to inspection, nondistended, normoactive bowel sounds and non-tender GI Narrative: Patient has urostomy that looks healthy. Abdomen is not distended. Bowel sounds are normal to slightly increased. No tenderness at all. Back/Spine no CVA tenderness Extremity normal to inspection Neuro Neuro Narrative: Patient is alert and oriented x3. He is not a good informant for details. For example, I asked if he had any history of heart disease and he denied this. I then find out he has had bypass surgery as well as prior HI. Sensorium / Orientation: alert Psych mental status grossly normal Skin no rashes or lesions noted MDM MDM MDM Narrative Medical decision making narrative: Patient CBC did show low white count and absolute neutrophil count of 0.5. Electrolytes actually showed reasonably good creatinine considering his baseline. Urine showed a lot of white cells and changes but he has an ileal conduit so this is likely dirty all the time. He has not had malodorous urine. He has not had any fevers. Lactate was slightly up at 2.4. But he is given fluids here. I did discuss the case with his oncologist, Dr. Yap. Plan will be to get the patient home. I will add Phenergan. He does have some Zofran which has been helping at home. Cultures are sent. His oncologist will follow these. Lab Data Attestation: I reviewed the patient's lab results. Labs: Laboratory Results - last 24 hr 04/04/22 04/04/22 04/04/22 00:00 00:00 00:55 WBC 0.9 L* RBC 3.97 L Hgb 12.0 L Hct 36.7 L MCV 92.4 MCH 30.2 MCHC 32.7 RDW Std Deviation 50.6 H RDW Coeff of Jasson 15.0 H Plt Count 80 L MPV 9.9 Immature Gran % (Auto) 1.100 H Neut % (Auto) 50.5 Lymph % (Auto) 37.6 Sampson % (Auto) 5.4 Eos % (Auto) 2.2 Baso % (Auto) 3.2 H Absolute Neuts (auto) 0.5 L Absolute Lymphs (auto) 0.35 L Nucleated RBC % 0 Differential Comment SCANNED Diff Path Review May foll Sodium 135 L Potassium 3.9 Chloride 105 Carbon Dioxide 22.0 Anion Gap 8 BUN 28 H Creatinine 1.35 H Estim Creat Clear Calc 42.66 Est GFR (MDRD) Af Amer 66 Est GFR (MDRD) Non-Af 55 L BUN/Creatinine Ratio 20.7 H Glucose 107 H Calcium 8.7 Urine Color Yellow Urine Clarity Cloudy Urine pH 8.0 Ur Specific Arco 1.010 Urine Protein 100 H Urine Glucose (UA) Normal Urine Ketones 15 H Urine Occult Blood 250 H Urine Nitrite Negative Urine Bilirubin Negative Urine Urobilinogen Normal Ur Leukocyte Esterase 500 H Urine RBC 10-25 SEEN Urine WBC 50-100 SEEN Ur Squamous Epith Cells 0 SEEN Triple Phos Crystals 3+ Amorphous Sediment 4+ Urine Bacteria 4+ Urine Mucus 0 SEEN Discharge Plan Triage Chief Complaint: Nausea/Vomiting/Diarrhea ED Provider: Nghia Cheng Dx/Rx/DC Orders Clinical Impression: Dehydration, mild, Pancytopenia, Nausea vomiting and diarrhea, Chemotherapy adverse reaction Instructions: Cancer Care- Controlling Diarrhea, Dehydration Prescriptions: New promethazine 25 mg tablet 25 mg PO TID PRN (Reason: nausea and vomiting) Qty: 14 0RF loperamide [Imodium A-D] 2 mg capsule 2 mg PO Q4H PRN (Reason: loose stool) Qty: 14 0RF Rx Instructions: administer after each loose stool until symptoms controlled; do not exceed 8 mg per 24 hrs No Action latanoprost 0.005 % drops 1 drp OPHTHALMIC BID ondansetron 8 mg tablet,disintegrating 8 mg PO Q8H PRN PRN (Reason: Nausea) 10 Days Qty: 30 3RF lidocaine-prilocaine 2.5-2.5 % cream 1 applic topical ONCE PRN (Reason: port access) 30 Days Qty: 30 2RF (DME) wheeled walker See Rx Instructions .Route .MEDSUPPLY Qty: 1 0RF Rx Instructions: As directed dorzolamide-timolol 22.3-6.8 mg/mL drops 1 drp ophthalmic (eye) BID gabapentin 100 mg capsule 300 mg PO BID Label Comments: TAKE 1 ORAL TWICE A DAY FOR ONE WEEK THEN TAKE 1 ORAL THREE TIMES A DAY FOR 3 WEEKS metoprolol tartrate 25 MG tablet 12.5 mg PO QHS Label Comments: heart rate/blood pressure acetaminophen 500 MG tablet 500 mg PO Q4H PRN PRN (Reason: Pain) Qty: 20 0RF polyethylene glycol 3350 17 GM packet 17 g PO DAILY cholecalciferol (vitamin D3) 2,000 UNIT capsule 2,000 unit PO DAILY simvastatin 40 MG tablet 40 mg PO QHS aspirin 81 mg tablet,delayed release (DR/EC) 81 mg PO .every other day Label Comments: stopped per instructions Primary Care Provider: Lana Solomon Referrals: Lana Solomon DO [Primary Care Provider] - Demian Ramirez MD [Med Staff - Active Staff] - As soon as possible Disposition Disposition: Home, Self Care
[2022-04-04] MEDS: Ondansetron 4 MG/2 ML Vial IV ×2 (00:04→02:30)
[2022-04-04] MEDS: 0.9% Normal Saline 1,000 ML 1000 ML IV (00:04)
[2022-04-04 00:24] LABS: Absolute Lymphocyte Count 0.35 X10^3/uL (0.83-4.51); Absolute Neutrophil Count 0.5 X10^3/uL (2.0-7.7); Basophil# 0.03 X10^3/uL; Basophil% 3.2 % (0-1); Eosinophil# 0.02 X10^3/uL; Eosinophils% 2.2 % (0-5); Hematocrit 36.7 % (40-54); Lymphocyte # 0.35 X10^3/ul (0.83-4.51); Lymphocyte % 37.6 % (19-41); Mean Corp Hgb Conc 32.7 g/dL (32-36); Mean Corpuscular Hgb 30.2 pg (27.0-32.0); Mean Corpuscular Volume 92.4 fL (80-94); Mean Platelet Vol. 9.9 fl (6.2-12.0); Monocyte# 0.05 X10^3/uL; Monocyte% 5.4 % (0-10); NRBC Flagged by Analyzer 0 % (0-5); Neutrophil # 0.47 X10^3/uL (2.7-7.7); Neutrophil % 50.5 % (47-70); POSITIVE COUNT YES; POSITIVE DIFFERENTIAL YES; POSITIVE MORPHOLOGY YES; Platelet Count 80 K/mm3 (150-450); RBC Distribution Width SD 50.6 fl (35.1-43.9); Red Blood Count 3.97 M/mm3 (4.6-6.2)
[2022-04-04 00:27] LABS: Differential Indicated SCAN CRITERIA MET
[2022-04-04 00:28] LABS: White Blood Count 0.9 K/mm3 (4.4-11.0)
[2022-04-04 00:41] LABS: Anion Gap 8 (5-15); BUN 28 mg/dL (7-18); BUN/Creat Ratio 20.7 RATIO (10-20); Calcium,Total 8.7 mg/dL (8.5-10.1); Chloride 105 mmol/L (98-107); Creatinine, Serum 1.35 mg/dL (0.70-1.30); EST Glomerular Filtration Rate 55 mL/min (>60); Est Glom Filt Rate - Afr Amer 66 mL/min (>60); Estimated Creatinine Clearance 42.66 ml/min; Glucose 107 mg/dL (74-106); Potassium 3.9 mmol/L (3.5-5.1); Sodium Level 135 mmol/L (136-145)
[2022-04-04 01:00] LABS: Mucous, Urine 0 SEEN /hpf (<or=2+); Squamous Epithelial Cells - UA 0 SEEN /hpf (0-5)
[2022-04-04 01:04] LABS: Glucose, Dipstick Normal (Normal); Ketone-Dipstick 15 mg/dl (Negative); Leukocyte Esterase-Dipstick 500 /ul (Negative); Nitrite-Dipstick Negative (Negative); Occult Blood-Urine 250 /ul (Negative); Protein-Dipstick 100 mg/dl (Negative); Urine Bilirubin Dipstick Negative (Negative); Urine Urobilinogen Normal (Normal)
[2022-04-04 01:05] LABS: Differential Comment SCANNED
[2022-04-04 01:05] LABS: Color, Urine Yellow (Yellow); Urine Clarity Cloudy (Clear)
[2022-04-04 01:12] LABS: Red Blood Cells-Urine 10-25 SEEN /hpf (0-5); White Blood Cells 50-100 SEEN /hpf (0-5)
[2022-04-04 01:13] LABS: Bacteria 4+ /hpf (None Seen)
[2022-04-04 01:14] LABS: Amorphous Sediment 4+; Triple Phosphate Crystals Ur 3+ /hpf (<or=1+)
[2022-04-04 02:34] VITALS: BP 112/64; PULSE 83; RESP 16; O2SAT 95
--- NOTE | 2022-04-04 02:59 | ED.RN ---
unable to scan 500cc of normal saline at this time. medication unverified. pt is currently receiving normal saline 500cc bolus at this time.
[2022-04-04 03:36] VITALS: BP 112/64; PULSE 83; RESP 18; O2SAT 95
[2022-04-05 07:31] LABS: Pathologist Review Reviewed
== END 2022-04-04 03:37 | disposition home or self-care (01) ==
PROVIDERS: Emergency Provider Emergency Medicine; Visit Provider Emergency Medicine
DX: E86.0 Dehydration (principal); C77.9 Secondary and unspecified malignant neoplasm of lymph node, unspecified; D61.818 Other pancytopenia; T45.1X5A Adverse effect of antineoplastic and immunosuppressive drugs, initial encounter; R11.2 Nausea with vomiting, unspecified; R19.7 Diarrhea, unspecified; I10 Essential (primary) hypertension; E78.5 Hyperlipidemia, unspecified; F17.210 Nicotine dependence, cigarettes, uncomplicated; Z79.82 Long term (current) use of aspirin; Z79.899 Other long term (current) drug therapy; I25.2 Old myocardial infarction; Z85.51 Personal history of malignant neoplasm of bladder; Z95.1 Presence of aortocoronary bypass graft; Z95.5 Presence of coronary angioplasty implant and graft
CPT/HCPCS: 36415; 36591; 80048; 81001; 83605; 85025; 87040; 87077; 87086; 87088; 87186; 96361; 96374; 96376; 99282; J7030; J7040; A4216; J2405